=== PATIENT | female | born 1970 ===

== ENCOUNTER 2020-07-04 12:49 | Emergency (ER) | payer OTHER, SELFPAY ==
[2020-07-04 13:10] VITALS: BP 135/74; PULSE 84; RESP 16; TEMP 37.2; O2SAT 98; BMI 32.4
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
[2020-07-04 14:00] VITALS: BP 139/84; PULSE 77; RESP 16; O2SAT 100
[2020-07-04] MEDS: Ketorolac Tromethamine 60 MG/2 ML VIAL IM (16:14)
== END 2020-07-04 16:19 | disposition home or self-care (01) ==
PROVIDERS: Emergency Provider Emergency Medicine
DX: S06.0X0A Concussion without loss of consciousness, initial encounter (principal); R51.9 Headache, unspecified; V43.52XA Car driver injured in collision with other type car in traffic accident, initial encounter; Y93.9 Activity, unspecified; Y92.410 Unspecified street and highway as the place of occurrence of the external cause
CPT/HCPCS: 70450; 96372; 99284; J1885

== ENCOUNTER 2020-08-09 12:05 | Outpatient (REF) | payer OTHER, SELFPAY | END 2020-08-09 12:06 | disposition home or self-care (01) | LOC: HO.LAB 12:05 | PROVIDERS: Visit Provider Internal Medicine | DX: Z20.828 Contact with and (suspected) exposure to other viral communicable diseases (principal) | CPT/HCPCS: C9803; U0003 ==

== ENCOUNTER 2020-10-02 12:14 | Outpatient (REF) | payer OTHER, SELFPAY ==
--- NOTE | 2020-10-02 | MM_ITS ---
EXAMINATION: MM DIAGNOSTIC DIGITAL BREAST TOMOSYNTHESIS, BILATERAL CLINICAL INFORMATION: Due for yearly. Probable benign asymmetric fibroglandular tissue right axillary tail on MLO view for follow-up. The lifetime risk of breast cancer based on the Tyrer-Cuzick Model is 8%. COMPARISON: Mammography: 07/10/2019, 07/04/2019 (BI-RADS 0), 02/07/2018, 06/29/2016, 06/11/2015, 05/29/2014, 04/06/2013 (baseline). Ultrasound right breast 07/10/2019 and 02/12/2009. TECHNIQUE: Digital breast tomosynthesis is performed in both the craniocaudal and mediolateral oblique views along with computer-aided detection (CAD). Synthesized 2D images are generated from the tomosynthesis. FINDINGS: The breasts are heterogeneously dense, which may obscure small masses (ACR BI-RADS breast composition Category c). Parenchymal pattern is similar to prior studies. There is heterogeneous accessory breast tissue bilaterally posterior upper breasts similar to multiple prior exams dating back to baseline 2012. There is no developing density or interval mass or architectural abnormality. No abnormal calcifications. No lymphadenopathy. The skin contours are smooth. Results are provided to the patient at time of visit by the technologist. MM/MM tomosynthesis diagnostic BI IMPRESSION: No significant changes from prior exams. ASSESSMENT: BI-RADS 2: Benign RECOMMENDATION: Routine annual mammography screening. This patient's information was entered into a reminder system with a target due date for their next mammogram.
== END 2020-10-02 12:15 | disposition home or self-care (01) ==
LOC: HO.MAMMO 12:14
PROVIDERS: PCP Internal Medicine; Visit Provider Internal Medicine
DX: R92.8 Other abnormal and inconclusive findings on diagnostic imaging of breast (principal)
CPT/HCPCS: 77062; 77066

== ENCOUNTER 2020-10-02 14:40 | Outpatient (REF) | payer OTHER, SELFPAY | END 2020-10-02 14:41 | disposition home or self-care (01) | LOC: HO.LAB 14:40 | PROVIDERS: PCP Internal Medicine; Visit Provider Internal Medicine | DX: Z20.822 Contact with and (suspected) exposure to COVID-19 (principal) | CPT/HCPCS: 36415; C9803; U0003 ==

== ENCOUNTER 2020-11-21 13:15 | Outpatient (REF) | payer OTHER, SELFPAY | END 2020-11-21 13:16 | disposition home or self-care (01) | LOC: HO.LAB 13:15 | PROVIDERS: Visit Provider Internal Medicine | DX: Z20.822 Contact with and (suspected) exposure to COVID-19 (principal) | CPT/HCPCS: 36415; C9803; U0003; U0005 ==

== ENCOUNTER 2020-12-30 07:31 | Outpatient (REF) | payer OTHER, SELFPAY ==
--- NOTE | ~2020-12-30 | XR_ITS ---
EXAMINATION: BILATERAL SHOULDER X-RAY CLINICAL INFORMATION: Pain COMPARISON: Previous right shoulder x-ray June 2019 TECHNIQUE: 3 views of each shoulder FINDINGS: Right: Bone alignment is normal. No fracture or dislocation is seen. The joint spaces are normal. Soft tissues are normal. Left: Bone alignment is normal. No fracture or dislocation is seen. The joint spaces are normal. There is a small acromial osteophyte or spur. Soft tissues are normal. XR/XR shoulder RT min 2V IMPRESSION: Right shoulder: Unremarkable exam. Left shoulder: Small acromial osteophyte.
--- NOTE | ~2020-12-30 | XR_ITS ---
EXAMINATION: BILATERAL SHOULDER X-RAY CLINICAL INFORMATION: Pain COMPARISON: Previous right shoulder x-ray June 2019 TECHNIQUE: 3 views of each shoulder FINDINGS: Right: Bone alignment is normal. No fracture or dislocation is seen. The joint spaces are normal. Soft tissues are normal. Left: Bone alignment is normal. No fracture or dislocation is seen. The joint spaces are normal. There is a small acromial osteophyte or spur. Soft tissues are normal. XR/XR shoulder LT min 2V IMPRESSION: Right shoulder: Unremarkable exam. Left shoulder: Small acromial osteophyte.
== END 2020-12-30 07:32 | disposition home or self-care (01) ==
LOC: HO.HOSX 07:31
PROVIDERS: Visit Provider Physician Assistant
DX: M25.511 Pain in right shoulder (principal); M25.512 Pain in left shoulder; M75.41 Impingement syndrome of right shoulder; M75.42 Impingement syndrome of left shoulder
CPT/HCPCS: 20610; 73030; 99202; J1020

== ENCOUNTER 2021-01-24 08:26 | Outpatient (REF) | payer OTHER, SELFPAY ==
[2021-01-24 11:24] LABS: MANUAL DIFF FLAG NO
[2021-01-24 11:40] LABS: Basophils Percent Auto 0.5 % (0-2); Eosinophils Absolute Auto 0.4 X10*3/uL (0.0-0.4); Eosinophils Percent Auto 6.3 % (0-4); Hemoglobin 12.5 g/dl (12.0-16.0); Imm Gran Abs Auto 0.04 X10*3/uL (0.00-0.03); Imm Gran Pct Auto 0.7 % (0.0-0.4); Lymphocytes Absolute Auto 1.6 X10*3/uL (1.2-4.9); Lymphocytes Percent Auto 27.5 % (20-40); Mean Corpuscular HGB Conc 32.1 g/dl (31.0-35.0); Mean Corpuscular Hemoglobin 28.9 pg (27.0-33.0); Mean Corpuscular Volume 90.1 fL (80-98); Mean Platelet Volume 9.4 fL (9.4-12.3); Monocytes Absolute Auto 0.4 X10*3/uL (0.1-1.2); Monocytes Percent Auto 6.3 % (2-11); Neutrophils Absolute Auto 3.5 X10*3/uL (2.0-8.3); Neutrophils Percent Auto 58.7 % (45-73); Platelet Count 287 X10*3/uL (160-400); Red Blood Count 4.33 X10*6/uL (4.20-5.50); Red Cell Distribution Width 12.9 % (11.0-16.0); White Blood Count 5.9 X10*3/uL (4.8-10.8)
[2021-01-24 12:05] LABS: Alanine Aminotransferase 19 U/L (0-31); Alkaline Phosphatase 93 U/L (39-117); Anion Gap 11 (12-20); Aspartate Amino Transferase 17 U/L (5-31); Bilirubin Total 0.4 mg/dL (0.0-1.0); Blood Urea Nitrogen 17 mg/dL (9-16); Calcium 9.1 mg/dL (8.4-10.2); Carbon Dioxide 30 mmol/L (22-29); Chloride 106 mmol/L (96-108); Cholesterol 174 mg/dL; Estimated Glomerular Filt Rate > 60; Glucose Fasting 94 mg/dL (60-99); HDL Cholesterol 49 mg/dL; LDL Cholesterol Calculated 109 mg/dl; Potassium 4.1 mmol/L (3.3-5.1); Sodium 143 mmol/L (135-145); Total Protein 6.9 g/dL (6.5-8.0); Triglycerides 82 mg/dL
[2021-01-24 12:31] LABS: TSH reflex Free T4 0.54 uIU/mL (0.32-4.0)
== END 2021-01-24 08:27 | disposition home or self-care (01) ==
LOC: HO.HMGCLDS 08:26
PROVIDERS: PCP Internal Medicine; Visit Provider Internal Medicine
DX: Z00.01 Encounter for general adult medical examination with abnormal findings (principal); E66.9 Obesity, unspecified
CPT/HCPCS: 36415; 80053; 80061; 84443; 85025

== ENCOUNTER 2021-02-05 11:45 | Outpatient (REF) | payer OTHER, SELFPAY | END 2021-02-05 11:46 | disposition home or self-care (01) | LOC: HO.LNP 11:45 | PROVIDERS: Visit Provider Hospitalist | DX: R30.0 Dysuria (principal) | CPT/HCPCS: 87086; 87088; 87186 ==

== ENCOUNTER 2021-02-17 11:29 | Outpatient (REF) | payer OTHER, SELFPAY ==
[2021-02-17 14:10] LABS: Syphilis Screen Nonreactive (Nonreactive)
[2021-02-17 17:22] LABS: CT PCR NOT DETECTED (Not Detect.); NG PCR NOT DETECTED (Not Detect.)
[2021-02-18 04:02] LABS: HIV AB/AG Nonreactive (Nonreactive); HIV Num 1 0.11 S/CO (0.00-0.99)
[2021-02-18 04:05] LABS: HBsAGNum1 0.13 S/CO (0.00-0.99); Hepatitis B Surface Antigen Negative (Negative); ~HepC Num1 0.12 S/CO (0.00-0.79); ~Hepatitis C Antibody Nonreactive (Nonreactive)
[2021-02-18 09:44] LABS: BV Int Neg Control Negative (Negative); BV Int Pos Control Positive (Positive)
== END 2021-02-17 11:30 | disposition home or self-care (01) ==
LOC: HO.LAB 11:29
PROVIDERS: PCP Internal Medicine; Visit Provider Advanced Practice Midwife
DX: Z01.411 Encounter for gynecological examination (general) (routine) with abnormal findings (principal); Z01.84 Encounter for antibody response examination; Z11.3 Encounter for screening for infections with a predominantly sexual mode of transmission; Z11.4 Encounter for screening for human immunodeficiency virus [HIV]; N95.1 Menopausal and female climacteric states; Z20.2 Contact with and (suspected) exposure to infections with a predominantly sexual mode of transmission; F32.9 Major depressive disorder, single episode, unspecified; Z98.51 Tubal ligation status
CPT/HCPCS: 36415; 86780; 86803; 87340; 87389; 87480; 87491; 87510; 87591; 87660

== ENCOUNTER → 2021-05-23 12:39 | Outpatient (BNVA) | payer OTHER, SELFPAY | PROVIDERS: Visit Provider Physician Assistant | DX: M75.41 Impingement syndrome of right shoulder (principal); M75.42 Impingement syndrome of left shoulder | CPT/HCPCS: 20610; 99212; J1020 ==

== ENCOUNTER 2021-07-24 08:32 | Outpatient (REF) | payer OTHER, SELFPAY ==
[2021-07-24 08:57] LABS: COVID-19 Test Negative (Negative)
== END 2021-07-24 08:33 | disposition home or self-care (01) ==
LOC: HO.LAB 08:32
PROVIDERS: PCP Internal Medicine; Visit Provider Internal Medicine
DX: Z20.822 Contact with and (suspected) exposure to COVID-19 (principal)
CPT/HCPCS: 36415; 87635; C9803

== ENCOUNTER 2021-08-28 09:32 | Outpatient (REF) | payer OTHER, SELFPAY ==
[2021-08-28 11:37] LABS: MANUAL DIFF FLAG NO
[2021-08-28 11:40] LABS: Appearance Urine CLEAR; Color Urine YELLOW; Glucose Urine UA NEG (NEG); Leukocyte Esterase Urine TRACE (NEG); Nitrite Urine NEG (NEG); UACC Culture Trigger YES; Urine Blood NEG (NEG); Urine Ketones NEG (NEG); Urine Protein NEG (NEG-TRACE)
[2021-08-28 11:49] LABS: Eosinophils Absolute Auto 0.2 X10*3/uL (0.0-0.4); Hematocrit 40.1 % (37.0-47.0); Hemoglobin 13.1 g/dl (12.0-16.0); Imm Gran Abs Auto 0.02 X10*3/uL (0.00-0.03); Imm Gran Pct Auto 0.4 % (0.0-0.4); Lymphocytes Absolute Auto 1.5 X10*3/uL (1.2-4.9); Mean Corpuscular HGB Conc 32.7 g/dl (31.0-35.0); Mean Corpuscular Volume 88.9 fL (80.0-98.0); Mean Platelet Volume 9.4 fL (9.4-12.3); Monocytes Absolute Auto 0.4 X10*3/uL (0.1-1.2); Monocytes Percent Auto 7.2 % (2-11); Neutrophils Absolute Auto 3.4 x10*3/uL (2.0-8.3); Neutrophils Percent Auto 61.4 % (45-73); Platelet Count 241 X10*3/uL (160-400); Red Blood Count 4.51 X10*6/uL (4.20-5.50); Red Cell Distribution Width 12.9 % (11.0-16.0); White Blood Count 5.6 X10*3/uL (4.8-10.8)
[2021-08-28 11:55] LABS: Bacteria Urine TRACE /LPF; RBC Urine 0 /HPF (0); Squamous Epithelial Cell Urine 2+ /LPF; WBC Urine 0-2 /HPF (0-4)
[2021-08-28 12:07] LABS: Alanine Aminotransferase 29 U/L (0-31); Albumin Level 4.3 g/dL (3.5-5.0); Alkaline Phosphatase 113 U/L (39-117); Anion Gap 12 (12-20); Aspartate Amino Transferase 27 U/L (5-31); Bilirubin Total 0.6 mg/dL (0.0-1.0); Blood Urea Nitrogen 17 mg/dL (9-16); Calcium 9.9 mg/dL (8.4-10.2); Carbon Dioxide 28 mmol/L (22-29); Chloride 108 mmol/L (96-108); Cholesterol 195 mg/dL; Estimated Glomerular Filt Rate > 60; Glucose Fasting 79 mg/dL (60-99); HDL Cholesterol 45 mg/dL; LDL Cholesterol Calculated 132 mg/dl; Potassium 4.2 mmol/L (3.3-5.1); Sodium 144 mmol/L (135-145); Total Protein 7.3 g/dL (6.5-8.0); Triglycerides 90 mg/dL
[2021-08-28 12:30] LABS: TSH reflex Free T4 0.58 uIU/mL (0.32-4.0)
== END 2021-08-28 09:33 | disposition home or self-care (01) ==
LOC: HO.HMGCLDS 09:32
PROVIDERS: PCP Internal Medicine; Visit Provider Internal Medicine
DX: F33.2 Major depressive disorder, recurrent severe without psychotic features (principal); F41.0 Panic disorder [episodic paroxysmal anxiety]; F41.1 Generalized anxiety disorder; M79.89 Other specified soft tissue disorders; R23.2 Flushing
CPT/HCPCS: 36415; 80053; 80061; 81001; 84443; 85025; 87086

== ENCOUNTER 2021-09-18 11:50 | Outpatient (REF) | payer OTHER, SELFPAY | END 2021-09-18 11:51 | disposition home or self-care (01) | LOC: HO.LAB 11:50 | PROVIDERS: Visit Provider Internal Medicine | DX: Z13.89 Encounter for screening for other disorder (principal) ==

== ENCOUNTER → 2021-11-05 09:58 | Outpatient (BNVA) | payer OTHER, SELFPAY | PROVIDERS: PCP Internal Medicine; Visit Provider Physician Assistant | DX: M75.41 Impingement syndrome of right shoulder (principal); M75.42 Impingement syndrome of left shoulder | CPT/HCPCS: 20610; 99212; J1040 ==

== ENCOUNTER → 2021-11-18 15:23 | Outpatient (BNVA) | payer OTHER, SELFPAY | PROVIDERS: PCP Internal Medicine; Visit Provider Obstetrics & Gynecology | DX: R23.2 Flushing (principal) | CPT/HCPCS: 99212 ==

== ENCOUNTER 2021-12-02 14:17 | Outpatient (REF) | payer OTHER, SELFPAY ==
--- NOTE | ~2021-12-02 | MM_ITS ---
EXAMINATION: MM SCREENING DIGITAL BREAST TOMOSYNTHESIS, BILATERAL CLINICAL INFORMATION: Screening. Asymptomatic. The lifetime risk of breast cancer based on the Tyrer-Cuzick Model is 7%. COMPARISON: Mammography: 10/02/2020, 07/10/2019, 07/04/2019, 02/07/2018 TECHNIQUE: Digital breast tomosynthesis is performed in both the craniocaudal and mediolateral oblique views along with computer-aided detection (CAD). Synthesized 2D images are generated from the tomosynthesis. FINDINGS: There are scattered areas of fibroglandular density (ACR BI-RADS breast composition Category b). Breast composition borders on heterogeneously dense. There are no significant masses, abnormal calcifications, or other abnormalities. There is no developing density or architectural abnormality or significant changes. Skin contours are smooth. MM/MM tomosynthesis screening BI IMPRESSION: No mammographic evidence of malignancy. ASSESSMENT: BI-RADS 1: Negative RECOMMENDATION: Routine annual mammography screening. This patient's information was entered into a reminder system with a target due date for their next mammogram.
== END 2021-12-02 14:18 | disposition home or self-care (01) ==
LOC: HO.MAMMO 14:17
PROVIDERS: Visit Provider Internal Medicine
DX: Z12.31 Encounter for screening mammogram for malignant neoplasm of breast (principal)
CPT/HCPCS: 77063; 77067

== ENCOUNTER 2021-12-03 09:31 | Outpatient (REF) | payer OTHER, SELFPAY ==
--- NOTE | ~2021-12-03 | MR_ITS ---
EXAMINATION: MR SHOULDER WITHOUT CONTRAST, LEFT CLINICAL INFORMATION: Left shoulder pain. COMPARISON: Radiographs 12/30/2020. TECHNIQUE: MRI of the shoulder without contrast is performed on a 1.5 Hope high-field scanner. FINDINGS: ROTATOR CUFF: Irregular full-thickness tear at the anterior aspect of the supraspinatus tendon measuring approximately 10 mm in AP dimension with maximal gap of 4 mm. There is a 3 mm interstitial insertional partial tear of the infraspinatus tendon insertion. Mild subscapularis tendinopathy. No muscle atrophy or fatty infiltration. BICEPS: Normal. CORACOACROMIAL ARCH: The undersurface of the acromion is curved with mild subacromial spurring. Mild acromioclavicular osteoarthritis. LABRUM/CAPSULE: No definite labral tear. GLENOHUMERAL JOINT/MARROW: Trace glenohumeral joint effusion. Degenerative spurring and cyst formation at the anterior aspect of the greater tuberosity. ADDITIONAL FINDINGS: None. MR/MR shoulder LT wo con IMPRESSION: Irregular full-thickness tearing of the supraspinatus tendon insertion anteriorly measuring approximately 10 x 4 mm. Small undersurface partial tear of the infraspinatus tendon insertion. Mild subscapularis tendinosis. Mild subacromial spurring and acromioclavicular osteoarthritis.
== END 2021-12-03 09:32 | disposition home or self-care (01) ==
LOC: HO.MRI 09:31
PROVIDERS: Visit Provider Physician Assistant
DX: S43.002D Unspecified subluxation of left shoulder joint, subsequent encounter (principal)
CPT/HCPCS: 73221

== ENCOUNTER → 2021-12-18 13:08 | Outpatient (BNVA) | payer OTHER, SELFPAY | PROVIDERS: PCP Internal Medicine; Visit Provider Orthopaedic Surgery | DX: M75.101 Unspecified rotator cuff tear or rupture of right shoulder, not specified as traumatic (principal) | CPT/HCPCS: 99212 ==

== ENCOUNTER 2022-01-28 09:14 | Outpatient (REF) | payer OTHER, SELFPAY ==
[2022-01-28 11:15] LABS: MANUAL DIFF FLAG NO
[2022-01-28 11:22] LABS: Eosinophils Absolute Auto 0.2 X10*3/uL (0.0-0.4); Eosinophils Percent Auto 3.1 % (0-4); Hemoglobin 13.5 g/dl (12.0-16.0); Imm Gran Abs Auto 0.02 X10*3/uL (0.00-0.03); Imm Gran Pct Auto 0.3 % (0.0-0.4); Lymphocytes Percent Auto 25.1 % (20-40); Mean Corpuscular HGB Conc 32.1 g/dl (31.0-35.0); Mean Corpuscular Hemoglobin 28.7 pg (27.0-33.0); Mean Corpuscular Volume 89.4 fL (80.0-98.0); Mean Platelet Volume 9.5 fL (9.4-12.3); Monocytes Absolute Auto 0.5 X10*3/uL (0.1-1.2); Monocytes Percent Auto 6.3 % (2-11); Neutrophils Absolute Auto 5.1 x10*3/uL (2.0-8.3); Neutrophils Percent Auto 65.2 % (45-73); Platelet Count 266 X10*3/uL (160-400); Red Cell Distribution Width 13.2 % (11.0-16.0); White Blood Count 7.8 X10*3/uL (4.8-10.8)
[2022-01-28 11:52] LABS: Alanine Aminotransferase 28 U/L (0-31); Albumin Level 4.2 g/dL (3.5-5.0); Alkaline Phosphatase 117 U/L (39-117); Anion Gap 12 (12-20); Aspartate Amino Transferase 24 U/L (5-31); Bilirubin Total 0.5 mg/dL (0.0-1.0); Blood Urea Nitrogen 10 mg/dL (9-16); Calcium 9.9 mg/dL (8.4-10.2); Carbon Dioxide 31 mmol/L (22-29); Chloride 104 mmol/L (96-108); Cholesterol 194 mg/dL; Estimated Glomerular Filt Rate > 60; Glucose Fasting 106 mg/dL (60-99); HDL Cholesterol 41 mg/dL; LDL Cholesterol Calculated 127 mg/dl; Potassium 4.3 mmol/L (3.3-5.1); Sodium 143 mmol/L (135-145); Total Protein 7.4 g/dL (6.5-8.0); Triglycerides 133 mg/dL
[2022-01-28 12:00] LABS: TSH reflex Free T4 0.48 uIU/mL (0.32-4.0)
[2022-02-05 01:52] LABS: Factor V Leiden NEGATIVE
== END 2022-01-28 09:15 | disposition home or self-care (01) ==
LOC: HO.HMGCLDS 09:14
PROVIDERS: PCP Internal Medicine; Visit Provider Internal Medicine
DX: Z00.01 Encounter for general adult medical examination with abnormal findings (principal); F33.2 Major depressive disorder, recurrent severe without psychotic features; F41.9 Anxiety disorder, unspecified; E66.9 Obesity, unspecified
CPT/HCPCS: 36415; 80053; 80061; 81241; 84443; 85025

== ENCOUNTER 2022-02-19 12:11 | Outpatient (REF) | payer OTHER, SELFPAY ==
[2022-02-20 01:20] LABS: CT PCR NOT DETECTED (Not Detect.); NG PCR NOT DETECTED (Not Detect.)
[2022-02-20 08:33] LABS: BV Int Neg Control Negative (Negative); BV Int Pos Control Positive (Positive)
== END 2022-02-19 12:12 | disposition home or self-care (01) ==
LOC: HO.LAB 12:11
PROVIDERS: Visit Provider Advanced Practice Midwife
DX: Z11.3 Encounter for screening for infections with a predominantly sexual mode of transmission (principal); Z11.8 Encounter for screening for other infectious and parasitic diseases
CPT/HCPCS: 87480; 87491; 87510; 87591; 87660

== ENCOUNTER → 2022-02-26 12:38 | Outpatient (BNVA) | payer OTHER, SELFPAY | PROVIDERS: PCP Internal Medicine; Visit Provider Physician Assistant | DX: M75.102 Unspecified rotator cuff tear or rupture of left shoulder, not specified as traumatic (principal) | CPT/HCPCS: 99212 ==

== ENCOUNTER 2022-03-19 11:28 | Outpatient (REF) | payer OTHER, SELFPAY ==
--- NOTE | ~2022-03-19 | XR_ITS ---
EXAMINATION: XR FOOT, RIGHT CLINICAL INFORMATION: Right foot pain. COMPARISON: None TECHNIQUE: AP, lateral, and oblique views of the right foot. FINDINGS: No fracture or malalignment. Bone mineralization is normal. Small enthesopathic spurs are present at the Achilles tendon insertion and plantar fascial origin on the calcaneus. Tiny marginal osteophytes are present at the first and third MTP joints. More moderate osteoarthritis is present at the third toe DIP joint. Mild osteoarthritis is present at the other interphalangeal joints. No erosions are identified. XR/XR foot RT 2V IMPRESSION: No acute osseous findings. Mild to moderate multifocal osteoarthritis of the interphalangeal joints, most notably at the third toe DIP joint. More mild osteoarthritis at the first and third MTP joints. Small calcaneal enthesopathic spurs at the Achilles insertion and plantar fascial origin.
== END 2022-03-19 11:29 | disposition home or self-care (01) ==
LOC: HO.HMGCX 11:28
PROVIDERS: Visit Provider Internal Medicine
DX: M79.671 Pain in right foot (principal)
CPT/HCPCS: 73620

== ENCOUNTER 2022-05-27 06:47 | Day surgery (SDC) | payer OTHER, SELFPAY ==
[2022-05-22 12:23] VITALS: BMI 36.4
[2022-05-27] VITALS (10 sets, daily range): BP systolic 112–127; BP diastolic 57–71; PULSE 63–77; RESP 15–18; TEMP 36.1–36.5; O2SAT 94–99
[2022-05-27] MEDS: Lactated Ringers 1,000 ML 50 ML IVCONT (07:27)
--- NOTE | 2022-05-27 08:39 | MHC.SHP ---
Pre-Procedural Eval Section A Date of Service: 05/27/22 The patient is an INPATIENT: No Changes since office visit: Yes Patient answered all questions; No Cold of Flu in the past 2 weeks, No New Medical Problems and No Changes in Medication The History & Physical has been completed within 30 days and I have reviewed it.: Yes Section B Chief Complaint: rotator cuff tear repair Allergies: Allergies Allergy/AdvReac Type Severity Reaction Status Date / Time mannitol [From ZOMETA] Allergy Severe DIFFICULTY Verified 05/27/22 07:07 SWALLOWING water for injection,sterile Allergy Severe DIFFICULTY Verified 05/27/22 07:07 [From ZOMETA] SWALLOWING zoledronic acid [From ZOMETA] Allergy Severe DIFFICULTY Verified 05/27/22 07:07 SWALLOWING latex [Latex] Allergy Intermediate RASH Verified 05/27/22 07:07 hydroxyzine [From VISTARIL] Allergy Mild SWELLING Verified 05/27/22 07:07 Plan I have reviewed the history and physical and performed a pertinent physical examination on my patient. No changes have occurred unless specified.
--- NOTE | 2022-05-27 08:47 | P.CONAN_ITS ---
HPI - Anesthesia Eval Consult details Narrative: 52 F for left shoulder scope PMFSH Active Problems Active Problems: All Active Problems (Updated 05/07/22 @ 12:39 by Celeste Henson [facility]) Heel spur (Acute) Osteoarthritis of foot, right (Acute) Left rotator cuff tear (Acute) Pain of right heel (Acute) Anxiety (Acute) Right rotator cuff tear (Acute) Stress incontinence (Acute) Hot flashes (Acute) Major depressive disorder, recurrent, severe w/o psychotic behavior (Acute) Generalized anxiety disorder with panic attacks (Acute) Swelling of lower extremity (Acute) Hx of tubal ligation (Acute) Depression (Acute) Kristin-menopause (Acute) Potential exposure to STD (Acute) Well woman exam with routine gynecological exam (Acute) Dysuria (Acute) Routine gynecological examination (Acute) Encounter for general adult medical examination with abnormal findings (Acute) Obesity (BMI 30.0-34.9) (Acute) Impingement syndrome of both shoulders (Acute) Facial rash (Acute) Shoulder pain, bilateral (Acute) Past Medical History Medical History Anxiety Depression Functional capacity: independent ambulation Family History Family history of problems with anesthesia: No Surgical History Surgical History History of tubal ligation Hx of section Hx of right breast biopsy History of Problems with Anesthesia: No Social History Social History Housing: Apartment Are you a primary hospice care consultant to a significant other at home: No Do you presently have visiting nurse or other home services: No Alcohol intake: never Patient Tobacco Use Status: Former Tobacco user Quit Date: 1996 Tobacco use type: Cigarette Years Smoked: 8 years e-Cigarette/Vaping Use: Never Used service: No Current occupational status: disabled 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 Cognitive needs: No Hearing needs: No Vision needs: No Meds Allergies Allergy/AdvReac Type Severity Reaction Status Date / Time mannitol [From ZOMETA] Allergy Severe DIFFICULTY Verified 05/27/22 07:07 SWALLOWING water for injection,sterile Allergy Severe DIFFICULTY Verified 05/27/22 07:07 [From ZOMETA] SWALLOWING zoledronic acid [From ZOMETA] Allergy Severe DIFFICULTY Verified 05/27/22 07:07 SWALLOWING latex [Latex] Allergy Intermediate RASH Verified 05/27/22 07:07 hydroxyzine [From VISTARIL] Allergy Mild SWELLING Verified 05/27/22 07:07 Active Medications: Current Medications Acetaminophen (Acetaminophen 325 Mg Tablet) 650 mg PO ONCE PRN PRN Reason: Pain, Mild (Pain Scale 1-3) Fentanyl (Fentanyl Citrate/Pf 100 Mcg/2 Ml Vial) 25 mcg IVPUSH Q5M PRN; Protocol PRN Reason: Pain, Moderate (Pain Scale 4-6 Hydromorphone HCl (Hydromorphone Hcl 0.5 Mg/0.5 Ml Syringe) 0.25 mg IVPUSH Q5M PRN; Protocol PRN Reason: Pain, Severe (Pain Scale 7-10) Lactated Ringer's (Lr) 1,000 mls @ 50 mls/hr IVCONT .Q20H CARLA Last Admin: 05/27/22 07:27 Dose: 50 mls/hr Promethazine HCl 6.25 mg/ (Sodium Chloride) 50.25 mls @ 201 mls/hr IV ONCE PRN PRN Reason: Nausea and Vomiting Oxycodone HCl (Oxycodone Hcl Immed Release 5 Mg Tablet) 5 mg PO ONCE PRN PRN Reason: Pain, Severe (Pain Scale 7-10) Home Medications Medication Instructions Recorded Confirmed Last Taken Type clonazepam 1 mg tablet 1 mg PO TID PRN Anxiety 12/11/20 05/22/22 05/27/22 History gabapentin 400 mg capsule 400 mg PO TID 12/11/20 05/22/22 05/27/22 History simethicone 125 mg chewable tablet 0 mg PO 12/11/20 03/20/22 Unknown History lamotrigine 25 mg tablet 0 mg PO 03/19/22 03/20/22 05/27/22 History venlafaxine 37.5 mg 37.5 mg PO DAILY 05/07/22 05/22/22 05/27/22 History capsule,extended release 24 hr Exam Exam Date and Time: May 27, 2022 0847 Height,Weight and Vital Signs: Height 5 ft 3.5 in Weight 94.801 kg Last Vital Signs Temp 97.7 F 05/27/22 07:15 Pulse 65 05/27/22 07:15 Resp 18 05/27/22 07:15 BP 124/71 05/27/22 07:15 Pulse Ox 96 05/27/22 07:15 O2 Del Method 05/27/22 07:15 Airway Mallampati Class: III TM Dist: >3cm Neck ROM: Full Loose/Missing/Broken Teeth: Yes (Fillings and caps ) Heart: S1,S2 Lungs: b/l breath sounds Assessment and Plan Assessment Anesthesia Assessment: Anesthesia Plan Discussed and Chart Reviewed Final Anesthetic Review Family History of Problems with Anesthesia: No History of Problems with Anesthesia: No NPO: Yes ASA Class: II Final Preanesthetic Review: Meds/Allgs Chart Reviewed, Consent Obtained/Reviewed and Anes Risks/Benef Reviewed Patient Risk: Intermediate Procedure Risk: Intermediate Anesthetic Plan Anesthetic Plan: GA Disposition: Standard PACU
--- NOTE | 2022-05-27 11:17 | P.BOP_ITS ---
Brief Operative Note Date of Service: 05/27/22 Pre-op diagnosis: Left RTC tear Post-op diagnosis: same Procedure: Left RTC repair with SAD Implants: [employer] Helacoil x 2 Surgeon: Oh Montiel MD Anesthesia: GETA and regional Was an Extras Casting Director used for this Procedure?: Yes Extras Casting Director: Radha Anaya Estimated blood loss (mL): 20 IV fluids (mL): 1,000 Pathology: none sent Condition: stable Disposition: PACU
--- NOTE | 2022-05-27 11:22 | P.OP_ITS ---
Operative Note Operative Note Date of Service: 05/27/22 Narrative: Date of Service: 05/27/22 Pre-op diagnosis: Left RTC tear Post-op diagnosis: same Procedure: Left RTC repair with SAD Implants: [employer] Helacoil x 2 Surgeon: Oh Montiel MD Anesthesia: GETA and regional Was an Bicycle Ii Assembler used for this Procedure?: Yes Bicycle Ii Assembler: Radha Anaya Estimated blood loss (mL): 20 IV fluids (mL): 1,000 Pathology: none sent Condition: stable Disposition: PACU Procedure in detail: Patient was brought to the operating room and placed the the beach chair position. All bony prominences were well padded and the limb was prepped and draped in standard sterile fashion. A time out was called to identify proper site, proper procedure and proper surgeon. IV antibiotics per weight were administered. I began by making a posterolateral stab incision with a 15 blade. A blunt trochar was placed into the glenohumeral joint and I insufflated the joint with saline and a 30 degree arthroscope was placed. I established an outside- in anterior portal just distal to the biceps tendon. I then began my inspection of the glenohumeral joint. There was an intact biceps with degenerative fraying of the labrum superiorly. There were no cartilage changed. There was an intact subscapularis with minimal fraying laterally. There was a full thickness supraspinatus tear without retraction. I debrided the labral fraying and entered the sub acromial space.. A direct lateral portal was then established and I performed a bursectomy. The cuff was then examined. There was a full thickness tear of the supraspinatus without retraction. The tear was mobile and crescentic. I established a second anterolateral portal for suture shuttling. I then placed two medial row double loaded anchors and then brought the suture tape through the medial cuff. I then debrided the bare area down to bleeding bone and, using a cross bridge configuration, brought three limbs to each of two lateral 5.0 anchors. This re- approximated the cuff anatomy near anatomically. I then performed a 5 mm subacromial decompression. Once I was satisfied with the repair final images were captured and I removed all instrumentation. Portals were closed with nylon. Patient was placed in an abduction sling, extubated and brought to the recovery room in stable condition. There were no known complications.
== END 2022-05-27 13:56 | disposition home or self-care (01) ==
PROVIDERS: PCP Internal Medicine; Visit Provider Orthopaedic Surgery
PROC: (CPT 29827; principal; 2022-05-27 08:30)
DX: M75.102 Unspecified rotator cuff tear or rupture of left shoulder, not specified as traumatic (principal); F32.A Depression, unspecified; F41.9 Anxiety disorder, unspecified; Z79.899 Other long term (current) drug therapy; Z88.8 Allergy status to other drugs, medicaments and biological substances; Z91.040 Latex allergy status; Z98.51 Tubal ligation status; Z87.891 Personal history of nicotine dependence
CPT/HCPCS: 29827; 29826; C1713; J0171; J0690; J1100; J1885; J2250; J2405; J2795; J3010

== ENCOUNTER 2022-06-06 12:26 | Emergency (ER) | payer OTHER, SELFPAY ==
--- NOTE | ~2022-06-06 | XR_ITS ---
EXAMINATION: XR SHOULDER, LEFT CLINICAL INFORMATION: Left shoulder pain. COMPARISON: 12/30/2020 left shoulder radiographs. TECHNIQUE: Three views of the left shoulder. FINDINGS: There is no acute fracture or dislocation. The joint spaces are unremarkable. 2 bone anchors overlie the left humeral head. Mild left acromioclavicular degenerative joint changes. The visualized left ribs are intact with the soft tissues are unremarkable. XR/XR shoulder LT min 2V IMPRESSION: No acute abnormality.
[2022-06-06 12:32] VITALS: BP 138/93; PULSE 92; RESP 18; TEMP 36.8; O2SAT 98; BMI 35.4
--- OUTSIDE RECORDS SUMMARY | 2022-06-06 14:40 | XMS_ITS | Continuity of Care Document ---
:1970 Author Organization [facility] Address [address] [place] [address]- Care Team Providers Name Role Phone Terrie Francis MD Primary Care Physician [place] [facility] [place] - 07/04/[address] [address]- [facility] Allergies, Adverse Reactions, Alerts Substance Reaction Severity Status Latex Active Medications Effexor XR 37.5 mg oral capsule, extended release 1 capsule = 37.5 mg, By Mouth, Daily, 0 Refills, Maintenance, 06/19/14 10:48:43 Start Date: 06/19/14 Status: OrderedKlonopin 2 mg oral tablet 1 tablet = 2 mg, By Mouth, 3 times a day, 0 Refills, Maintenance, 06/19/14 10:48:37 Start Date: 06/19/14 Status: Orderedoxycodone 5 mg oral tablet 1 tablet = 5 mg, By Mouth, Every 6 hours, 0 Refills, Maintenance, 06/19/14 10:49:12 Start Date: 06/19/14 Status: Orderedtrazodone 150 mg oral tablet 1 tablet = 150 mg, By Mouth, Daily at bedtime, # 15 tablet, 0 Refills Start Date: 06/05/09 Stop Date: 07/04/09 Status: OrderedTrileptal 300 mg oral tablet 1 tablet = 300 mg, By Mouth, 2 times a day, 0 Refills, Maintenance, 06/19/14 10:48:55 Start Date: 06/19/14 Status: Ordered
--- NOTE | 2022-06-06 15:18 | ED_ITS ---
HPI - Extremity Problem General Chief complaint: Extremity Problem Stated complaint: l arm shoulder pain Time Seen by Provider: 06/06/22 14:31 History of Present Illness HPI Narrative: Patient complains of left shoulder pain after putting weight on the shoulder when she leaned against something She had a rotator cuff surgery done 2 weeks ago and it was improving and then when she got up for bed she was not using or sling and for got about her surgery and pushed herself up on the shoulder and felt some cracking and a return of pain in the left shoulder area, she did not fall, she has no numbness weakness or tingling no radiation of pain no redness no swelling Related Data Home Medications Medication Instructions Recorded Confirmed clonazepam 1 mg tablet 1 mg PO TID PRN Anxiety 12/11/20 05/22/22 gabapentin 400 mg capsule 400 mg PO TID 12/11/20 05/22/22 simethicone 125 mg chewable tablet 0 mg PO 12/11/20 03/20/22 lamotrigine 25 mg tablet 0 mg PO 03/19/22 03/20/22 venlafaxine 37.5 mg 37.5 mg PO DAILY 05/07/22 05/22/22 capsule,extended release 24 hr Previous Rx's Medication Instructions Recorded solifenacin 10 mg tablet (Vesicare) 10 mg PO DAILY 90 days #90 tabs 06/01/22 acetaminophen 500 mg tablet 1,000 mg PO QID PRN pain #30 tabs 06/06/22 ibuprofen 600 mg tablet 600 mg PO Q6H PRN pain #20 tabs 06/06/22 oxycodone 5 mg tablet 5 mg PO Q6H PRN pain #14 tabs 06/06/22 oxycodone-acetaminophen 5 mg-325 1 tab PO Q6H PRN pain (scale score 06/09/22 mg tablet (Percocet) 4-6) 7 days #28 tabs Allergies Allergy/AdvReac Type Severity Reaction Status Date / Time mannitol [From ZOMETA] Allergy Severe DIFFICULTY Verified 06/01/22 09:32 SWALLOWING water for injection,sterile Allergy Severe DIFFICULTY Verified 06/01/22 09:32 [From ZOMETA] SWALLOWING zoledronic acid [From ZOMETA] Allergy Severe DIFFICULTY Verified 06/01/22 09:32 SWALLOWING latex [Latex] Allergy Intermediate RASH Verified 06/01/22 09:32 hydroxyzine [From VISTARIL] Allergy Mild SWELLING Verified 06/01/22 09:32 Review of Systems Review of Systems: Positive for left shoulder pain Negatives are no fever no chills no dizziness no weakness no fainting no feeling faint no headache no neck pain no chest pain no radiating pain no difficulty victor manuel athing no abdominal pain no other extremity pains no numbness no weakness no tingling no skin rash no redness Yes all other systems are reviewed and are negative PMFSH Past Medical History Source: nursing notes reviewed Medical History Anxiety Depression Surgical History History of tubal ligation Hx of section Hx of right breast biopsy Social History Social History Housing: Apartment Are you a primary hearing care professional to a significant other at home: No Do you presently have visiting nurse or other home services: No Alcohol intake: never Patient Tobacco Use Status: Former Tobacco user Quit Date: 1996 Tobacco use type: Cigarette Years Smoked: 8 years e-Cigarette/Vaping Use: Never Used service: No Current occupational status: disabled 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 Cognitive needs: No Hearing needs: No Vision needs: No Physical Exam Vital Signs: Vital Signs: Last Vital Signs Temp 98.2 F 06/06/22 12:32 Pulse 92 06/06/22 12:32 Resp 18 06/06/22 12:32 BP 138/93 H 06/06/22 12:32 Pulse Ox 98 06/06/22 12:32 O2 Del Method 06/06/22 12:32 BMI result Body Mass Index 35.4 General appearance no acute distress Head is normocephalic atraumatic Neck is supple nontender Chest clear to auscultation bilateral no chest wall tenderness The left shoulder has surgical scars that are healing well, there is no redness no swelling no discharge no dehiscence of wound, range of should motion is limited by pain but there is no swelling, no signs of skin infection or joint infection, sensation and motor are intact distal, skin is intact Other extremities normal Skin no rashes Neuro no focal motor sensory deficits Course Course Course Narrative: X-ray of the left shoulder did not show any evidence of osteomyelitis or any other acute findings and patient was discharged to follow with orthopedist Discharge Plan Discharge Clinical Impression: Left shoulder pain Patient Disposition: Home, Self-Care Additional Instructions: The x-ray did not show any new bony injury Follow closely with Orthopedics Return any time should pain be increased in out of control, redness and swelling of the shoulder fever any worse condition or any concerns Prescriptions: New oxycodone 5 mg tablet 5 mg PO Q6H PRN (Reason: pain) Qty: 14 0RF Rx Instructions: Partial Fill upon patient request. acetaminophen 500 mg tablet 1,000 mg PO QID PRN (Reason: pain) Qty: 30 0RF ibuprofen 600 mg tablet 600 mg PO Q6H PRN (Reason: pain) Qty: 20 0RF No Action solifenacin [Vesicare] 10 mg tablet 10 mg PO DAILY 90 Days Qty: 90 1RF oxycodone-acetaminophen [Percocet] 5-325 mg tablet 1 tab PO Q6H PRN (Reason: pain (scale score 4-6)) 7 Days Qty: 28 0RF Rx Instructions: Partial Fill upon patient request. clonazepam 1 mg tablet 1 mg PO TID PRN (Reason: Anxiety) simethicone 125 mg tablet,chewable 0 mg PO gabapentin 400 mg capsule 400 mg PO TID lamotrigine 25 mg tablet 0 mg PO venlafaxine 37.5 mg capsule,extended release 24hr 37.5 mg PO DAILY Referrals: Oh Montiel MD [Physician] - (Postsurgical pain) Interventions: ED Discharge Assessment Last Done: 06/06/22 17:35 Discharge Date/Time: 06/06/22 17:36
== END 2022-06-06 17:36 | disposition home or self-care (01) ==
PROVIDERS: Emergency Provider Emergency Medicine; PCP Internal Medicine
DX: M25.512 Pain in left shoulder (principal)
CPT/HCPCS: 73030; 99282; 99283

== ENCOUNTER 2022-06-26 12:48 | Outpatient (RCR) | payer OTHER, SELFPAY ==
--- NOTE | 2022-06-26 15:06 | MHC.PT.EP ---
[facility] [place] [facility] [place] [facility] [place] [facility] [address] Kiley Card [address] [phone] F: [phone] F: [phone] F: [phone] F: [phone] Physical Therapy Plan of Care Date of Evaluation: Date of Surgery: 05/27/22 Diagnosis: s/p L rotator cuff repair (full thickness suprapinatus tear and subacromial decompression) Assessment: Patient is 52 y.o female who presents to PT s/p L RTC repair (supraspinatus with subacromial decompression). She is currently 4 weeks post op, has not been compliant with MD restrictions and has not been consistent with sling use, actively moving shoulder and lifting light objects. A great deal of this session is spent with patient education about tissue healing after surgery and reinforce sling use until 6 weeks, no active use of arm, no lifting anything with L arm to ensure that she will not re-tear her tendon. She had possible injury to surgical area 2 weeks post of that she was seen at the ER, unclear if it effected soft tissue. I gave her basic exercises for AAROM, pendulums, scapular retractions, am having her be more cautious instead of overdoing her mobility at this point in her rehab. She requires progressive, monitored PT following protocol to restore her functional mobility and use of L UE. Frequency and Duration: The patient will be seen 2x/week for 8 week Short Term Goals: 4 weeks Patient presents with increased L shoulder flexion 140 degrees to reach up to watch her hair. Patient presents with compliance with home exercises/PT instructions per protocol to allow for tissue healing. Retirement Goals: 8 weeks Patient presents with increased L shoulder scaption 175 degrees to reach to high cabinets. Patient presents with increased L shoulder flexion 4+/5 to be able to use arm for light housework. Treatment Plan: Modalities to reduce pain, spasms and effusion. Manual therapy to restore motion and function. Therapeutic exercise to improve strength and flexibility. Neuromuscular re-education for posture and balance. Therapeutic activities to return to functional activities of daily living. Electronically signed by: Lin Kelly, PT, DPT Please sign and return to therapist. Thank you for your referral.
== END 2022-11-02 11:03 | disposition home or self-care (01) ==
LOC: HO.PT 12:48
PROVIDERS: PCP Internal Medicine; Visit Provider Physician Assistant
DX: Z98.890 Other specified postprocedural states (principal)
CPT/HCPCS: 97110; 97140

== ENCOUNTER 2022-07-07 12:51 | Outpatient (REF) | payer OTHER, SELFPAY ==
[2022-07-07 14:33] LABS: Anion Gap 14 (12-20); Blood Urea Nitrogen 11 mg/dL (9-16); Calcium 9.7 mg/dL (8.4-10.2); Carbon Dioxide 29 mmol/L (22-29); Chloride 107 mmol/L (96-108); Estimated Glomerular Filt Rate > 60; Glucose Random 110 mg/dL (60-115); Potassium 3.8 mmol/L (3.3-5.1); Sodium 146 mmol/L (135-145)
[2022-07-08 07:49] LABS: HBc Num1 0.07 S/CO (0.00-0.79); HBsAGNum1 0.21 S/CO (0.00-0.99); HIV AB/AG Nonreactive (Nonreactive); HIV Num 1 0.08 S/CO (0.00-0.99); Hepatitis B Core Antibody Nonreactive (Nonreactive); Hepatitis B Surface Antigen Negative (Negative); ~HepC Num1 0.14 S/CO (0.00-0.79); ~Hepatitis A Antibody IgM Nonreactive (Nonreactive); ~Hepatitis B Surface Antibody REACTIVE (Nonreactive); ~Hepatitis C Antibody Nonreactive (Nonreactive)
[2022-07-08 07:56] LABS: Syphilis Screen Nonreactive (Nonreactive)
[2022-07-08 11:11] LABS: Herpes Simplex Type 2 IgG <0.90 index
== END 2022-07-07 12:52 | disposition home or self-care (01) ==
LOC: HO.HMGCLDS 12:51
PROVIDERS: PCP Internal Medicine; Visit Provider Internal Medicine
DX: N39.3 Stress incontinence (female) (male) (principal); F33.2 Major depressive disorder, recurrent severe without psychotic features; F41.1 Generalized anxiety disorder; F41.0 Panic disorder [episodic paroxysmal anxiety]; Z20.2 Contact with and (suspected) exposure to infections with a predominantly sexual mode of transmission
CPT/HCPCS: 36415; 80048; 86695; 86696; 86704; 86706; 86709; 86780; 86803; 87340; 87389

== ENCOUNTER 2022-07-28 16:00 | Outpatient (RCR) | payer OTHER, SELFPAY ==
--- NOTE | 2022-06-01 10:51 | MHC.PT.EP ---
[facility] [place] Office [place] Office [place] Office [address] Kiley Card [address] [phone] F: [phone] F: [phone] F: [phone] F: [phone] Physical Therapy Plan of Care Date of Evaluation: Date of Surgery: 05/27/22 Diagnosis: LEFT ROTATOR CUFF REPAIR Assessment: JOSE L IS A PLEASANT 52 YO FEMALE WHO PRESENTS PRESENTS S/P ROTATOR CUFF REPAIR, POD #5 FOR ORTHOPEDIC FOLLOW UP AND PT EVALUATION. UPON EXAM HE DEMONSTRATES THE EXPECTED IMPAIRMENTS OF DECREASED ROM, DECREASED STRENGTH, ALTERED POSTURE AND POSITIONING, INCREASED UPPER TRAP GUARDING, AND INCREASED PAIN AND EDEMA. FUNCTIONAL LIMITATIONS INCLUDE DECREASED ABILITY TO PERFORM HOMEMAKING AND SELF-CARE TASKS, DECREASED ABILITY TO PERFORM PUSHING, PULLING, LIFTING AND REACHING. INABILITY TO DRIVE AND PERFORM WORK TASKS, DECREASED PARTICIPATION IN COMMUNITY AND RECREATIONAL ACTIVITIES AND DISRUPTED SLEEP. THE PT IS A GOOD CANDIDATE FOR SKILLED PT DUE TO AGE, POTENTIAL REMEDIATION OF IMPAIRMENTS, TYPICAL DISEASE/CONDITION PROGRESSION AND PROGNOSIS, COMORBIDITIES, AND MOTIVATION. PT WOULD BENEFIT FROM TAILORED PROGRAM OF THERAPEUTIC ACTIVITIES, FUNCTIONAL TRAINING,, POSTURAL EDUCATION, NEUROMUSCULAR RE-EDUCATION, AND MODALITIES NEEDED. Frequency and Duration: The patient will be seen 2 X WEEK FOR 12 WEEKS Short Term Goals: INITIATE HEP AND PROMOTE SELF MANAGEMENT OF SYMPTOMS Residential Goals: FULL, PAIN FREE ROM FULL UE STRENGTH, PAIN FREE TO PERFORM COMPUTER AND WORK TASKS WITHOUT RESTRICTION AND PAIN NO GREATER THAN 2/[address] OBJECT AT MINIMUM OF 5# INTO CABINET AT SHOULDER HEIGHT Treatment Plan: Modalities to reduce pain, spasms and effusion. Manual therapy to restore motion and function. Therapeutic exercise to improve strength and flexibility. Neuromuscular re-education for posture and balance. Therapeutic activities to return to functional activities of daily living. Electronically signed by: GONZALO DEWITT PT, DPT Please sign and return to therapist. Thank you for your referral.
--- NOTE | 2022-08-18 11:09 | MHC.PT.DC ---
[facility] [place] [facility] [place] Office [place] Office [address] Kiley Card [address] [facility] [phone] F: [phone] F: [phone] F: [phone] F: [phone] Physical Therapy Discharge Report Diagnosis: LEFT ROTATOR CUFF REPAIR (full thickness supraspinatus tear and subacromial decompression) Date of Surgery: 05/27/22 Date of Evaluation: 06/01/22 Date of Discharge: 08/18/22 Treatments to Date: 7 Cancellations to Date: 2 No Shows to Date: 0 Discharge Status: Patient Elected to Stop Discharge Summary: Patient was last seen for PT 07/28/22. She was 8 weeks post op as of 07/22/22. Patient was called as she did not schedule any FUP visits after that and she said she requested to be discharged as she has difficulty attending PT visits. She would like to be discharged at this time. I recommend continued PT but she requests discharge. She had FUP visits with orthopedic surgeon for her care. Electronically signed by: Lin Kelly, PT, DPT Please sign and return to therapist. Thank you for your referral.
== END 2022-08-18 11:10 | disposition home or self-care (01) ==
LOC: HO.PT 16:00
PROVIDERS: Visit Provider Physician Assistant
DX: Z98.890 Other specified postprocedural states (principal)
CPT/HCPCS: 97110; 97140; 97161

== ENCOUNTER 2022-12-16 15:39 | Emergency (ER) | payer OTHER, SELFPAY ==
[2022-12-16 16:25] VITALS: BP 129/87; PULSE 92; RESP 18; TEMP 36.1; O2SAT 98; BMI 31.7
--- NOTE | 2022-12-16 16:25 | ED.DIZZY ---
HPI - Dizziness General Chief Complaint: Psychiatric Symptoms <Mary Smith NP - Last Filed: 12/16/22 16:29> Stated Complaint: lightheaded, fatigue, depressed <Mary Smith NP - Last Filed: 12/16/22 16:29> Time Seen by Provider: 12/16/22 16:38 <Mary Smith NP - Last Filed: 12/16/22 16:29> Source: patient <RUBIA Jean - Last Filed: 12/16/22 17:24> Mode of arrival: ambulatory <RUBIA Jean - Last Filed: 12/16/22 17:24> Limitations: no limitations <RUBIA Jean - Last Filed: 12/16/22 17:24> History of Present Illness HPI Narrative: 52 yo female with history of major depression, bipolar disorder, anxiety with panic attacks, history of self harm/cutting who presents to the ER for evaluation of worsening depression as yesterday. She reports that her depression has been relatively well controlled with medications and therapy. She states her mental state has been declining with dangerous thoughts. She was starting to have thoughts about cutting and attempting to kill herself. She came to the ER before she would attempt. She also reports associated with her depression has been lightheadedness for the last day as well. She admits to crying a lot, hyperventilating and having panic attacks. No weakness, numbness, tingling, vertigo. <RUBIA Jean - Last Filed: 12/16/22 17:24> MD elicited complaint: lightheadedness <RUBIA Jean - Last Filed: 12/16/22 17:24> Onset (ago): day(s) (1) <RUBIA Jean - Last Filed: 12/16/22 17:24> Timing: gradual onset <RUBIA Jean Last Filed: 12/16/22 17:24> Severity: severe <RUBIA Jean Last Filed: 12/16/22 17:24> Description: lightheadedness <RUBIA Jean Last Filed: 12/16/22 17:24> Context: anxiety <RUBIA Jean Last Filed: 12/16/22 17:24> History of similar symptoms: Yes <RUBIA Jean - Last Filed: 12/16/22 17:24> Exacerbating factors: nothing <RUBIA Jean - Last Filed: 12/16/22 17:24> Relieving factors: nothing <RUBIA Jean - Last Filed: 12/16/22 17:24> Associated symptoms: denies other symptoms <RUBIA Jean - Last Filed: 12/16/22 17:24> Related Data Home Medications: Home Medications Medication Instructions Recorded Confirmed gabapentin 400 mg capsule 400 mg PO TID 12/11/20 12/16/22 lamotrigine 100 mg tablet 100 mg PO DAILY 07/07/22 12/16/22 clonazepam 1 mg tablet 1 mg PO TID 12/16/22 12/16/22 solifenacin 10 mg tablet (Vesicare) 10 mg PO DAILY PRN Abdominal 12/16/22 12/16/22 Discomfort Previous Rx's Medication Instructions Recorded acetaminophen 500 mg tablet 1,000 mg PO QID PRN pain #30 tabs 06/06/22 ibuprofen 600 mg tablet 600 mg PO Q6H PRN for pain #120 12/11/22 tabs <Mary Smith NP - Last Filed: 12/16/22 16:29> Allergies/Adverse Reactions: Allergies Allergy/AdvReac Type Severity Reaction Status Date / Time mannitol [From ZOMETA] Allergy Severe DIFFICULTY Verified 12/16/22 16:25 SWALLOWING water for injection,sterile Allergy Severe DIFFICULTY Verified 12/16/22 16:25 [From ZOMETA] SWALLOWING zoledronic acid [From ZOMETA] Allergy Severe DIFFICULTY Verified 12/16/22 16:25 SWALLOWING latex [Latex] Allergy Intermediate RASH Verified 12/16/22 16:25 hydroxyzine [From VISTARIL] Allergy Mild SWELLING Verified 12/16/22 16:25 <Mary Smith NP - Last Filed: 12/16/22 16:29> Review of Systems Review of Systems: Yes all other systems are reviewed and are negative <RUBIA Jean Last Filed: 12/16/22 17:24> [facility] Past Medical History Medical History: Medical History Anxiety Depression <Mary Smith NP - Last Filed: 12/16/22 16:29> Surgical History: Surgical History History of tubal ligation Hx of section Hx of right breast biopsy <Mary Smith NP - Last Filed: 12/16/22 16:29> Social History Social History: Social History Housing: Apartment Are you a primary child care attendant school to a significant other at home: No Do you presently have visiting nurse or other home services: No Alcohol intake: never Patient Tobacco Use Status: Former Tobacco user Quit Date: 1996 Tobacco use type: Cigarette Years Smoked: 8 years e-Cigarette/Vaping Use: Never Used Use of substances other than those prescribed or required for medical reasons: No Advance Directives: No Advance Directives Information Provided: No Patient : No service: No Current occupational status: disabled 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 Cognitive needs: No Hearing needs: No Vision needs: No <Mary Smith NP - Last Filed: 12/16/22 16:29> Physical Exam Vital Signs: Vital Signs: Last Vital Signs Temp 97.0 F 12/16/22 16:25 Pulse 95 12/16/22 17:10 Resp 18 12/16/22 16:25 BP 116/86 12/16/22 17:10 Pulse Ox 98 12/16/22 16:25 O2 Del Method Room Air 12/16/22 16:25 BMI result Body Mass Index 31.8 <Mary Smith NP - Last Filed: 12/16/22 16:29> Vital Signs: Last Vital Signs Temp 97.0 F 12/16/22 16:25 Pulse 95 12/16/22 17:10 Resp 18 12/16/22 16:25 BP 116/86 12/16/22 17:10 Pulse Ox 98 12/16/22 16:25 O2 Del Method Room Air 12/16/22 16:25 BMI result Body Mass Index 31.8 <RUBIA Jean - Last Filed: 12/16/22 17:24> Vital Signs: Last Vital Signs Temp 97.0 F 12/16/22 16:25 Pulse 95 12/16/22 17:10 Resp 18 12/16/22 16:25 BP 116/86 12/16/22 17:10 Pulse Ox 98 12/16/22 16:25 O2 Del Method Room Air 12/16/22 16:25 BMI result Body Mass Index 31.8 <RUBIA Costa - Last Filed: 12/16/22 23:15> Appearance: Alert. Oriented X3. Tearful Head: normocephalic, atraumatic. Eyes: Pupils equal, round and reactive to light. ENT: Pharynx normal. No tonsillar swelling or exudate. Neck: Normal inspection. Neck supple. CVS: Normal heart rate and rhythm. Pulses normal. Respiratory: No respiratory distress. Breath sounds normal. Abdomen: Soft and nontender. +BS x4 Skin: Skin warm and dry. Normal skin color. Normal skin turgor. No rashes. Extremities: No lower extremity edema. No joint swelling. Neuro/psych: Oriented X 3. No motor deficit. No sensory deficit. CN II-XII intact. Normal speech and cognition. Tearful with depressed mood, makes eye contact <RUBIA Jean - Last Filed: 12/16/22 17:24> Course Course Course Narrative: This is a rapid medical exam. Deferred additional HPI, ROS, PE to primary provider. 52yo female with history of anxiety, depression here with complaints of feeling lightheaded/dizzy since yesterday. Also complaints of depression, SI with no plan. Followed by [facility], no recent med changes. No HI, hallucinations. Will obtain labs, EKG, orthos Once medically cleared will need CARE team eval. VSS. Charge nurse notified that patient needs immediate bedding due to SI <Mary Smith NP - Last Filed: 12/16/22 16:29> Reevaluation(s) Reevaluation #1: Patient was seen by CARE team she admits to thoughts of self harm earlier but wasnt going to act on them. At this time denies SI and HI. Good resources at home. Has a safety plan in place. Will follow up with outpatient providers. Comfortable w/ plan <RUBIA Costa - Last Filed: 12/16/22 23:15> Time: 23:13 <RUBIA Costa - Last Filed: 12/16/22 23:15> Medical Decision Making Medical Decision Making MDM Narrative: 52-year-old female with history of anxiety and depression, bipolar disorder presents ER for evaluation of worsening pain since yesterday. She admits to suicidal thoughts with intention of cutting herself. She is tearful and depressed on arrival. She reports some intermittent lightheadedness for the last 24 hours. Orthostatic vital signs are unremarkable. No anemia on lab workup. She will need to be seen by the care team once medically cleared <RUBIA Jean - Last Filed: 12/16/22 17:24> Differential Diagnosis Differential Diagnoses: The differential diagnosis associated with the presentation includes <RUBIA Jean - Last Filed: 12/16/22 17:24> worsening major depression, acute psychosis, substance abuse mood disorder, panic attacks, doubt ACS or CVA as cause of lightheadedness <RUBIA Jean - Last Filed: 12/16/22 17:24> Admission/Observation Consideration of admission/observation: Escalation of care including admission/observation considered <RUBIA Jean - Last Filed: 12/16/22 17:24> Lab Data [facility] Lab Attestation statement: I reviewed the patient's lab results. <RUBIA Jean - Last Filed: 12/16/22 17:24> Result Diagrams: 12/16/22 17:04 12/16/22 17:04 <Mary Smith NP - Last Filed: 12/16/22 16:29> Labs: Lab Results 12/16/22 12/16/22 12/16/22 Range/Units 17:04 17:04 17:05 WBC 7.2 (4.8-10.8) X10*3/uL RBC 4.72 (4.20-5.50) X10*6/uL Hgb 13.7 (12.0-16.0) g/dl Hct 42.3 (37.0-47.0) % MCV 89.6 (80.0-98.0) fL MCH 29.0 (27.0-33.0) pg MCHC 32.4 (31.0-35.0) g/dl RDW 12.6 (11.0-16.0) % Plt Count 243 (160-400) X10*3/uL MPV 8.9 L (9.4-12.3) fL Immature Gran % (Auto) 0.3 (0.0-0.4) % Neut % (Auto) 54.7 (45-73) % Lymph % (Auto) 34.6 (20-40) % Rich % (Auto) 7.0 (2-11) % Eos % (Auto) 3.1 (0-4) % Baso % (Auto) 0.3 (0-2) % Lymph # (Auto) 2.5 (1.2-4.9) X10*3/uL Rich # (Auto) 0.5 (0.1-1.2) X10*3/uL Eos # (Auto) 0.2 (0.0-0.4) X10*3/uL Baso # (Auto) 0.0 (0.0-0.2) X10*3/uL Abs Immat Gran (auto) 0.02 (0.00-0.03) X10*3/uL Absolute Neuts (auto) 3.9 (2.0-8.3) x10*3/uL Absolute Nucleated RBC 0.000 (0.0-0.012) X10*3/uL Nucleated RBC % (auto) 0.0 (0.0-0.2) /100WBC Sodium 145 (135-145) mmol/L Potassium 4.1 (3.3-5.1) mmol/L Chloride 106 (96-108) mmol/L Carbon Dioxide 31 H (22-29) mmol/L Anion Gap 12 (12-20) BUN 15 (9-16) mg/dL Creatinine 0.82 (0.5-1.4) mg/dL Estim Creat Clear Calc 86.2 Estimated GFR > 60 Random Glucose 68 (60-115) mg/dL Calcium 9.3 (8.4-10.2) mg/dL Magnesium 2.1 (1.6-2.6) mg/dL Total Bilirubin 0.3 (0.0-1.0) mg/dL Direct Bilirubin 0.1 (0.0-0.5) mg/dL AST 15 (5-31) U/L ALT 12 (0-31) U/L Alkaline Phosphatase 131 H (39-117) U/L Total Protein 6.8 (6.5-8.0) g/dL Albumin 4.3 (3.5-5.0) g/dL Urine Color Urine Appearance Urine pH (5.0-9.0) Ur Specific [place] (1.005-1.025) Urine Protein (Neg-Trace) mg/dL Urine Glucose (UA) (Negative) mg/dL Urine Ketones (Negative) mg/dL Urine Blood (Negative) Urine Nitrite (Negative) Ur Leukocyte Esterase (Negative) Urine RBC (0-2) /HPF Urine WBC (0-5) /HPF Ur Squamous Epith Cells (0-2) /HPF Urine Bacteria (None Seen) Hyaline Casts (0-2) /LPF Salicylates < 5.0 L (15-30) mg/dL Urine Opiates Screen Not Detected (Not Detect) Urine Fentanyl Screen Not Detected (Not Detect) Acetaminophen < 17 (<30) mcg/mL Ur Barbiturates Screen Not Detected (Not Detect) Ur Phencyclidine Scrn Not Detected (Not Detect) Ur Amphetamines Screen Not Detected (Not Detect) U Benzodiazepines Scrn Not Detected (Not Detect) Urine Cocaine Screen Not Detected (Not Detect) U Marijuana (THC) Screen Not Detected (Not Detect) Ethyl Alcohol < 10 mg/dL COVID-19 (DAYAN) (Negative) COVID-19 Clin Com 12/16/22 12/16/22 Range/Units 17:06 17:06 WBC (4.8-10.8) X10*3/uL RBC (4.20-5.50) X10*6/uL Hgb (12.0-16.0) g/dl Hct (37.0-47.0) % MCV (80.0-98.0) fL MCH (27.0-33.0) pg MCHC (31.0-35.0) g/dl RDW (11.0-16.0) % Plt Count (160-400) X10*3/uL MPV (9.4-12.3) fL Immature Gran % (Auto) (0.0-0.4) % Neut % (Auto) (45-73) % Lymph % (Auto) (20-40) % Rich % (Auto) (2-11) % Eos % (Auto) (0-4) % Baso % (Auto) (0-2) % Lymph # (Auto) (1.2-4.9) X10*3/uL Rich # (Auto) (0.1-1.2) X10*3/uL Eos # (Auto) (0.0-0.4) X10*3/uL Baso # (Auto) (0.0-0.2) X10*3/uL Abs Immat Gran (auto) (0.00-0.03) X10*3/uL Absolute Neuts (auto) (2.0-8.3) x10*3/uL Absolute Nucleated RBC (0.0-0.012) X10*3/uL Nucleated RBC % (auto) (0.0-0.2) /100WBC Sodium (135-145) mmol/L Potassium (3.3-5.1) mmol/L Chloride (96-108) mmol/L Carbon Dioxide (22-29) mmol/L Anion Gap (12-20) BUN (9-16) mg/dL Creatinine (0.5-1.4) mg/dL Estim Creat Clear Calc Estimated GFR Random Glucose (60-115) mg/dL Calcium (8.4-10.2) mg/dL Magnesium (1.6-2.6) mg/dL Total Bilirubin (0.0-1.0) mg/dL Direct Bilirubin (0.0-0.5) mg/dL AST (5-31) U/L ALT (0-31) U/L Alkaline Phosphatase (39-117) U/L Total Protein (6.5-8.0) g/dL Albumin (3.5-5.0) g/dL Urine Color Yellow Urine Appearance Clear Urine pH 6.0 (5.0-9.0) Ur Specific [place] 1.020 (1.005-1.025) Urine Protein Negative (Neg-Trace) mg/dL Urine Glucose (UA) Negative (Negative) mg/dL Urine Ketones Negative (Negative) mg/dL Urine Blood Negative (Negative) Urine Nitrite Negative (Negative) Ur Leukocyte Esterase Trace H (Negative) Urine RBC 0-2 (0-2) /HPF Urine WBC 0-5 (0-5) /HPF Ur Squamous Epith Cells 6-10 (0-2) /HPF Urine Bacteria 1+ (None Seen) Hyaline Casts 0-2 (0-2) /LPF Salicylates (15-30) mg/dL Urine Opiates Screen (Not Detect) Urine Fentanyl Screen (Not Detect) Acetaminophen (<30) mcg/mL Ur Barbiturates Screen (Not Detect) Ur Phencyclidine Scrn (Not Detect) Ur Amphetamines Screen (Not Detect) U Benzodiazepines Scrn (Not Detect) Urine Cocaine Screen (Not Detect) U Marijuana (THC) Screen (Not Detect) Ethyl Alcohol mg/dL COVID-19 (DAYAN) Negative (Negative) COVID-19 Clin Com See Note <Mary Smith NP - Last Filed: 12/16/22 16:29> Lab Results 12/16/22 12/16/22 12/16/22 Range/Units 17:04 17:04 17:05 WBC 7.2 (4.8-10.8) X10*3/uL RBC 4.72 (4.20-5.50) X10*6/uL Hgb 13.7 (12.0-16.0) g/dl Hct 42.3 (37.0-47.0) % MCV 89.6 (80.0-98.0) fL MCH 29.0 (27.0-33.0) pg MCHC 32.4 (31.0-35.0) g/dl RDW 12.6 (11.0-16.0) % Plt Count 243 (160-400) X10*3/uL MPV 8.9 L (9.4-12.3) fL Immature Gran % (Auto) 0.3 (0.0-0.4) % Neut % (Auto) 54.7 (45-73) % Lymph % (Auto) 34.6 (20-40) % Rich % (Auto) 7.0 (2-11) % Eos % (Auto) 3.1 (0-4) % Baso % (Auto) 0.3 (0-2) % Lymph # (Auto) 2.5 (1.2-4.9) X10*3/uL Rich # (Auto) 0.5 (0.1-1.2) X10*3/uL Eos # (Auto) 0.2 (0.0-0.4) X10*3/uL Baso # (Auto) 0.0 (0.0-0.2) X10*3/uL Abs Immat Gran (auto) 0.02 (0.00-0.03) X10*3/uL Absolute Neuts (auto) 3.9 (2.0-8.3) x10*3/uL Absolute Nucleated RBC 0.000 (0.0-0.012) X10*3/uL Nucleated RBC % (auto) 0.0 (0.0-0.2) /100WBC Sodium 145 (135-145) mmol/L Potassium 4.1 (3.3-5.1) mmol/L Chloride 106 (96-108) mmol/L Carbon Dioxide 31 H (22-29) mmol/L Anion Gap 12 (12-20) BUN 15 (9-16) mg/dL Creatinine 0.82 (0.5-1.4) mg/dL Estim Creat Clear Calc 86.2 Estimated GFR > 60 Random Glucose 68 (60-115) mg/dL Calcium 9.3 (8.4-10.2) mg/dL Magnesium 2.1 (1.6-2.6) mg/dL Total Bilirubin 0.3 (0.0-1.0) mg/dL Direct Bilirubin 0.1 (0.0-0.5) mg/dL AST 15 (5-31) U/L ALT 12 (0-31) U/L Alkaline Phosphatase 131 H (39-117) U/L Total Protein 6.8 (6.5-8.0) g/dL Albumin 4.3 (3.5-5.0) g/dL Urine Color Urine Appearance Urine pH (5.0-9.0) Ur Specific [place] (1.005-1.025) Urine Protein (Neg-Trace) mg/dL Urine Glucose (UA) (Negative) mg/dL Urine Ketones (Negative) mg/dL Urine Blood (Negative) Urine Nitrite (Negative) Ur Leukocyte Esterase (Negative) Urine RBC (0-2) /HPF Urine WBC (0-5) /HPF Ur Squamous Epith Cells (0-2) /HPF Urine Bacteria (None Seen) Hyaline Casts (0-2) /LPF Salicylates < 5.0 L (15-30) mg/dL Urine Opiates Screen Not Detected (Not Detect) Urine Fentanyl Screen Not Detected (Not Detect) Acetaminophen < 17 (<30) mcg/mL Ur Barbiturates Screen Not Detected (Not Detect) Ur Phencyclidine Scrn Not Detected (Not Detect) Ur Amphetamines Screen Not Detected (Not Detect) U Benzodiazepines Scrn Not Detected (Not Detect) Urine Cocaine Screen Not Detected (Not Detect) U Marijuana (THC) Screen Not Detected (Not Detect) Ethyl Alcohol < 10 mg/dL COVID-19 (DAYAN) (Negative) COVID-19 Clin Com 12/16/22 12/16/22 Range/Units 17:06 17:06 WBC (4.8-10.8) X10*3/uL RBC (4.20-5.50) X10*6/uL Hgb (12.0-16.0) g/dl Hct (37.0-47.0) % MCV (80.0-98.0) fL MCH (27.0-33.0) pg MCHC (31.0-35.0) g/dl RDW (11.0-16.0) % Plt Count (160-400) X10*3/uL MPV (9.4-12.3) fL Immature Gran % (Auto) (0.0-0.4) % Neut % (Auto) (45-73) % Lymph % (Auto) (20-40) % Rich % (Auto) (2-11) % Eos % (Auto) (0-4) % Baso % (Auto) (0-2) % Lymph # (Auto) (1.2-4.9) X10*3/uL Rich # (Auto) (0.1-1.2) X10*3/uL Eos # (Auto) (0.0-0.4) X10*3/uL Baso # (Auto) (0.0-0.2) X10*3/uL Abs Immat Gran (auto) (0.00-0.03) X10*3/uL Absolute Neuts (auto) (2.0-8.3) x10*3/uL Absolute Nucleated RBC (0.0-0.012) X10*3/uL Nucleated RBC % (auto) (0.0-0.2) /100WBC Sodium (135-145) mmol/L Potassium (3.3-5.1) mmol/L Chloride (96-108) mmol/L Carbon Dioxide (22-29) mmol/L Anion Gap (12-20) BUN (9-16) mg/dL Creatinine (0.5-1.4) mg/dL Estim Creat Clear Calc Estimated GFR Random Glucose (60-115) mg/dL Calcium (8.4-10.2) mg/dL Magnesium (1.6-2.6) mg/dL Total Bilirubin (0.0-1.0) mg/dL Direct Bilirubin (0.0-0.5) mg/dL AST (5-31) U/L ALT (0-31) U/L Alkaline Phosphatase (39-117) U/L Total Protein (6.5-8.0) g/dL Albumin (3.5-5.0) g/dL Urine Color Yellow Urine Appearance Clear Urine pH 6.0 (5.0-9.0) Ur Specific [place] 1.020 (1.005-1.025) Urine Protein Negative (Neg-Trace) mg/dL Urine Glucose (UA) Negative (Negative) mg/dL Urine Ketones Negative (Negative) mg/dL Urine Blood Negative (Negative) Urine Nitrite Negative (Negative) Ur Leukocyte Esterase Trace H (Negative) Urine RBC 0-2 (0-2) /HPF Urine WBC 0-5 (0-5) /HPF Ur Squamous Epith Cells 6-10 (0-2) /HPF Urine Bacteria 1+ (None Seen) Hyaline Casts 0-2 (0-2) /LPF Salicylates (15-30) mg/dL Urine Opiates Screen (Not Detect) Urine Fentanyl Screen (Not Detect) Acetaminophen (<30) mcg/mL Ur Barbiturates Screen (Not Detect) Ur Phencyclidine Scrn (Not Detect) Ur Amphetamines Screen (Not Detect) U Benzodiazepines Scrn (Not Detect) Urine Cocaine Screen (Not Detect) U Marijuana (THC) Screen (Not Detect) Ethyl Alcohol mg/dL COVID-19 (DAYAN) Negative (Negative) COVID-19 Clin Com See Note <RUBIA Jean - Last Filed: 12/16/22 17:24> Lab Results 12/16/22 12/16/22 12/16/22 Range/Units 17:04 17:04 17:05 WBC 7.2 (4.8-10.8) X10*3/uL RBC 4.72 (4.20-5.50) X10*6/uL Hgb 13.7 (12.0-16.0) g/dl Hct 42.3 (37.0-47.0) % MCV 89.6 (80.0-98.0) fL MCH 29.0 (27.0-33.0) pg MCHC 32.4 (31.0-35.0) g/dl RDW 12.6 (11.0-16.0) % Plt Count 243 (160-400) X10*3/uL MPV 8.9 L (9.4-12.3) fL Immature Gran % (Auto) 0.3 (0.0-0.4) % Neut % (Auto) 54.7 (45-73) % Lymph % (Auto) 34.6 (20-40) % Rich % (Auto) 7.0 (2-11) % Eos % (Auto) 3.1 (0-4) % Baso % (Auto) 0.3 (0-2) % Lymph # (Auto) 2.5 (1.2-4.9) X10*3/uL Rich # (Auto) 0.5 (0.1-1.2) X10*3/uL Eos # (Auto) 0.2 (0.0-0.4) X10*3/uL Baso # (Auto) 0.0 (0.0-0.2) X10*3/uL Abs Immat Gran (auto) 0.02 (0.00-0.03) X10*3/uL Absolute Neuts (auto) 3.9 (2.0-8.3) x10*3/uL Absolute Nucleated RBC 0.000 (0.0-0.012) X10*3/uL Nucleated RBC % (auto) 0.0 (0.0-0.2) /100WBC Sodium 145 (135-145) mmol/L Potassium 4.1 (3.3-5.1) mmol/L Chloride 106 (96-108) mmol/L Carbon Dioxide 31 H (22-29) mmol/L Anion Gap 12 (12-20) BUN 15 (9-16) mg/dL Creatinine 0.82 (0.5-1.4) mg/dL Estim Creat Clear Calc 86.2 Estimated GFR > 60 Random Glucose 68 (60-115) mg/dL Calcium 9.3 (8.4-10.2) mg/dL Magnesium 2.1 (1.6-2.6) mg/dL Total Bilirubin 0.3 (0.0-1.0) mg/dL Direct Bilirubin 0.1 (0.0-0.5) mg/dL AST 15 (5-31) U/L ALT 12 (0-31) U/L Alkaline Phosphatase 131 H (39-117) U/L Total Protein 6.8 (6.5-8.0) g/dL Albumin 4.3 (3.5-5.0) g/dL Urine Color Urine Appearance Urine pH (5.0-9.0) Ur Specific [place] (1.005-1.025) Urine Protein (Neg-Trace) mg/dL Urine Glucose (UA) (Negative) mg/dL Urine Ketones (Negative) mg/dL Urine Blood (Negative) Urine Nitrite (Negative) Ur Leukocyte Esterase (Negative) Urine RBC (0-2) /HPF Urine WBC (0-5) /HPF Ur Squamous Epith Cells (0-2) /HPF Urine Bacteria (None Seen) Hyaline Casts (0-2) /LPF Salicylates < 5.0 L (15-30) mg/dL Urine Opiates Screen Not Detected (Not Detect) Urine Fentanyl Screen Not Detected (Not Detect) Acetaminophen < 17 (<30) mcg/mL Ur Barbiturates Screen Not Detected (Not Detect) Ur Phencyclidine Scrn Not Detected (Not Detect) Ur Amphetamines Screen Not Detected (Not Detect) U Benzodiazepines Scrn Not Detected (Not Detect) Urine Cocaine Screen Not Detected (Not Detect) U Marijuana (THC) Screen Not Detected (Not Detect) Ethyl Alcohol < 10 mg/dL COVID-19 (DAYAN) (Negative) COVID-19 Clin Com 12/16/22 12/16/22 Range/Units 17:06 17:06 WBC (4.8-10.8) X10*3/uL RBC (4.20-5.50) X10*6/uL Hgb (12.0-16.0) g/dl Hct (37.0-47.0) % MCV (80.0-98.0) fL MCH (27.0-33.0) pg MCHC (31.0-35.0) g/dl RDW (11.0-16.0) % Plt Count (160-400) X10*3/uL MPV (9.4-12.3) fL Immature Gran % (Auto) (0.0-0.4) % Neut % (Auto) (45-73) % Lymph % (Auto) (20-40) % Rich % (Auto) (2-11) % Eos % (Auto) (0-4) % Baso % (Auto) (0-2) % Lymph # (Auto) (1.2-4.9) X10*3/uL Rich # (Auto) (0.1-1.2) X10*3/uL Eos # (Auto) (0.0-0.4) X10*3/uL Baso # (Auto) (0.0-0.2) X10*3/uL Abs Immat Gran (auto) (0.00-0.03) X10*3/uL Absolute Neuts (auto) (2.0-8.3) x10*3/uL Absolute Nucleated RBC (0.0-0.012) X10*3/uL Nucleated RBC % (auto) (0.0-0.2) /100WBC Sodium (135-145) mmol/L Potassium (3.3-5.1) mmol/L Chloride (96-108) mmol/L Carbon Dioxide (22-29) mmol/L Anion Gap (12-20) BUN (9-16) mg/dL Creatinine (0.5-1.4) mg/dL Estim Creat Clear Calc Estimated GFR Random Glucose (60-115) mg/dL Calcium (8.4-10.2) mg/dL Magnesium (1.6-2.6) mg/dL Total Bilirubin (0.0-1.0) mg/dL Direct Bilirubin (0.0-0.5) mg/dL AST (5-31) U/L ALT (0-31) U/L Alkaline Phosphatase (39-117) U/L Total Protein (6.5-8.0) g/dL Albumin (3.5-5.0) g/dL Urine Color Yellow Urine Appearance Clear Urine pH 6.0 (5.0-9.0) Ur Specific [place] 1.020 (1.005-1.025) Urine Protein Negative (Neg-Trace) mg/dL Urine Glucose (UA) Negative (Negative) mg/dL Urine Ketones Negative (Negative) mg/dL Urine Blood Negative (Negative) Urine Nitrite Negative (Negative) Ur Leukocyte Esterase Trace H (Negative) Urine RBC 0-2 (0-2) /HPF Urine WBC 0-5 (0-5) /HPF Ur Squamous Epith Cells 6-10 (0-2) /HPF Urine Bacteria 1+ (None Seen) Hyaline Casts 0-2 (0-2) /LPF Salicylates (15-30) mg/dL Urine Opiates Screen (Not Detect) Urine Fentanyl Screen (Not Detect) Acetaminophen (<30) mcg/mL Ur Barbiturates Screen (Not Detect) Ur Phencyclidine Scrn (Not Detect) Ur Amphetamines Screen (Not Detect) U Benzodiazepines Scrn (Not Detect) Urine Cocaine Screen (Not Detect) U Marijuana (THC) Screen (Not Detect) Ethyl Alcohol mg/dL COVID-19 (DAYAN) Negative (Negative) COVID-19 Clin Com See Note <RUBIA Costa - Last Filed: 12/16/22 23:15> External Record Review External record reviewed: Outpatient record, Prior outpatient labs and Prior outpatient radiology <RUBIA Jean - Last Filed: 12/16/22 17:24> Chronic Conditions Patient?s care impacted by: Other (depression and anxiety ) <RUBIA Jean - Last Filed: 12/16/22 17:24> Critical Care Time Critical Care Time Critical Care Time: No <RUBIA Jean - Last Filed: 12/16/22 17:24> Discharge Plan Discharge Clinical Impression: Suicidal ideation, Generalized anxiety disorder with panic attacks, Depression <Mary Smith NP - Last Filed: 12/16/22 16:29> Patient Disposition: Home, Self-Care <Mary Smith NP - Last Filed: 12/16/22 16:29> Instructions: Depression (ED), Anxiety (ED), Help Prevent Suicide (ED) <Mary Smith NP - Last Filed: 12/16/22 16:29> Additional Instructions: Take your medications as prescribed. If you were prescribed antibiotics today, it is important that you take your medication to their entirety, do not skip any doses, do not finish them early. Follow-up with your primary care provider this week. Return to the emergency department with new or worsening symptoms. Such as fevers, chills, chest pain, shortness of breath, nausea, vomiting, dizziness, headache, vision changes, lethargy, suicidal or homicidal ideation, hallucination In case of emergency call 911 <Mary Smith NP - Last Filed: 12/16/22 16:29> Prescriptions: No Action ibuprofen 600 mg tablet 600 mg PO Q6H PRN (Reason: for pain) Qty: 120 0RF acetaminophen 500 mg tablet 1,000 mg PO QID PRN (Reason: pain) Qty: 30 0RF clonazepam 1 mg tablet 1 mg PO TID solifenacin [Vesicare] 10 mg tablet 10 mg PO DAILY PRN (Reason: Abdominal Discomfort) gabapentin 400 mg capsule 400 mg PO TID lamotrigine 100 mg tablet 100 mg PO DAILY <Mary Smith NP - Last Filed: 12/16/22 16:29> Referrals: [facility] [Provider Group] - 2 days Venancio Aldana MD [Primary Care Provider] - 2 days <Mary Smith NP - Last Filed: 12/16/22 16:29> Interventions: [place]-Suicide Risk Severity Scale Last Done: 12/16/22 17:10 <Mary Smith NP - Last Filed: 12/16/22 16:29>
--- NOTE | 2022-12-16 16:27 | ECG_ITS ---
Test Reason : med clearance Blood Pressure : / mmHG Vent. Rate : 070 BPM Atrial Rate : 070 BPM P-R Int : 162 ms QRS Dur : 084 ms QT Int : 386 ms P-R-T Axes : 042 031 031 degrees QTc Int : 416 ms Normal sinus rhythm Normal ECG When compared with ECG of 31-MAR-2013 22:00, No significant change was found Referred By: Mary Smith Electronically Signed By:MACHO VALENTINE MD
[2022-12-16 16:28] VITALS: BP 115/78; PULSE 99
[2022-12-16 17:09] VITALS: BP 122/80; PULSE 86
[2022-12-16 17:10] VITALS: BP 116/86; PULSE 95; BMI 31.8
[2022-12-16 17:17] LABS: MANUAL DIFF FLAG NO
[2022-12-16 17:21] LABS: Appearance Urine Clear; Color Urine Yellow; Glucose Urine UA Negative (Negative); Leukocyte Esterase Urine Trace (Negative); Nitrite Urine Negative (Negative); UMIC TRIGGER UACC YES; Urine Blood Negative (Negative); Urine Ketones Negative (Negative); Urine Protein Negative (Neg-Trace)
[2022-12-16 17:21] LABS: Basophils Percent Auto 0.3 % (0-2); Eosinophils Absolute Auto 0.2 X10*3/uL (0.0-0.4); Eosinophils Percent Auto 3.1 % (0-4); Hematocrit 42.3 % (37.0-47.0); Hemoglobin 13.7 g/dl (12.0-16.0); Imm Gran Abs Auto 0.02 X10*3/uL (0.00-0.03); Imm Gran Pct Auto 0.3 % (0.0-0.4); Lymphocytes Absolute Auto 2.5 X10*3/uL (1.2-4.9); Lymphocytes Percent Auto 34.6 % (20-40); Mean Corpuscular HGB Conc 32.4 g/dl (31.0-35.0); Mean Corpuscular Volume 89.6 fL (80.0-98.0); Mean Platelet Volume 8.9 fL (9.4-12.3); Monocytes Absolute Auto 0.5 X10*3/uL (0.1-1.2); Neutrophils Absolute Auto 3.9 x10*3/uL (2.0-8.3); Neutrophils Percent Auto 54.7 % (45-73); Platelet Count 243 X10*3/uL (160-400); Red Blood Count 4.72 X10*6/uL (4.20-5.50); Red Cell Distribution Width 12.6 % (11.0-16.0); White Blood Count 7.2 X10*3/uL (4.8-10.8)
[2022-12-16 17:29] LABS: Amphetamine Screen Urine Not Detected (Not Detect); Barbiturates, Urine Not Detected (Not Detect); Benzodiazepines Screen Urine Not Detected (Not Detect); Cannabinoid Screen Urine Not Detected (Not Detect); Cocaine Screen Urine Not Detected (Not Detect); Fentanyl, urine Not Detected (Not Detect); Opiate Screen Urine Not Detected (Not Detect); Phencyclidine Screen Urine Not Detected (Not Detect)
[2022-12-16 17:43] LABS: Acetaminophen LAB < 17 mcg/mL (<30); Alanine Aminotransferase 12 U/L (0-31); Albumin Level 4.3 g/dL (3.5-5.0); Alkaline Phosphatase 131 U/L (39-117); Anion Gap 12 (12-20); Aspartate Amino Transferase 15 U/L (5-31); Bilirubin Direct 0.1 mg/dL (0.0-0.5); Bilirubin Total 0.3 mg/dL (0.0-1.0); Blood Urea Nitrogen 15 mg/dL (9-16); Calcium 9.3 mg/dL (8.4-10.2); Carbon Dioxide 31 mmol/L (22-29); Chloride 106 mmol/L (96-108); Creatinine Clr Calc Pharmacy 86.2; Estimated Glomerular Filt Rate > 60; Ethanol < 10 mg/dL; Glucose Random 68 mg/dL (60-115); Magnesium 2.1 mg/dL (1.6-2.6); Potassium 4.1 mmol/L (3.3-5.1); Salicylate < 5.0 mg/dL (15-30); Sodium 145 mmol/L (135-145); Total Protein 6.8 g/dL (6.5-8.0)
[2022-12-16 17:45] LABS: COVID-19 Test Negative (Negative); IDNOW Serial# 08D9AD1C
[2022-12-16 17:54] LABS: Bacteria Urine 1+ (None Seen); Hyaline Casts Urine 0-2 /LPF (0-2); RBC Urine 0-2 /HPF (0-2); WBC Urine 0-5 /HPF (0-5)
== END 2022-12-16 23:29 | disposition home or self-care (01) ==
PROVIDERS: Nurse Practitioner Family; Emergency Provider Emergency Medicine; PCP Internal Medicine
DX: R45.851 Suicidal ideations (principal); F32.9 Major depressive disorder, single episode, unspecified; F41.1 Generalized anxiety disorder; Z79.899 Other long term (current) drug therapy; Z20.822 Contact with and (suspected) exposure to COVID-19
CPT/HCPCS: 36415; 80048; 80076; 80143; 80179; 80307; 81001; 82077; 83735; 85025; 87635; 93005; 99285; S9485

== ENCOUNTER 2023-02-17 08:12 | Outpatient (REF) | payer OTHER, SELFPAY ==
--- NOTE | ~2023-02-17 | MM_ITS ---
EXAMINATION: MM SCREENING DIGITAL BREAST TOMOSYNTHESIS, BILATERAL CLINICAL INFORMATION: Screening. Asymptomatic. The lifetime risk of breast cancer based on the Tyrer-Cuzick Model is 7%. COMPARISON: Mammography: 12/02/2021, 10/02/2020, 07/10/2019, 02/07/2018 TECHNIQUE: Digital breast tomosynthesis is performed in both the craniocaudal and mediolateral oblique views along with computer-aided detection (CAD). Synthesized 2D images are generated from the tomosynthesis. FINDINGS: There are scattered areas of fibroglandular density (ACR BI-RADS breast composition Category b). Breast tissue composition borders on heterogeneously dense. No architectural abnormality or developing density or significant change from prior studies. There are no significant masses, abnormal calcifications, or other abnormalities. The axilla and skin contours are unremarkable. MM/MM tomosynthesis screening BI IMPRESSION: No mammographic evidence of malignancy. ASSESSMENT: BI-RADS 1: Negative RECOMMENDATION: Routine annual mammography screening. This patient's information was entered into a reminder system with a target due date for their next mammogram.
[2023-02-17 11:22] LABS: MANUAL DIFF FLAG NO
[2023-02-17 11:34] LABS: Basophils Absolute Auto 0.1 X10*3/uL (0.0-0.2); Basophils Percent Auto 0.7 % (0-2); Eosinophils Absolute Auto 0.3 X10*3/uL (0.0-0.4); Eosinophils Percent Auto 4.7 % (0-4); Hematocrit 42.4 % (37.0-47.0); Hemoglobin 13.6 g/dl (12.0-16.0); Imm Gran Abs Auto 0.02 X10*3/uL (0.00-0.03); Imm Gran Pct Auto 0.3 % (0.0-0.4); Lymphocytes Absolute Auto 2.8 X10*3/uL (1.2-4.9); Mean Corpuscular HGB Conc 32.1 g/dl (31.0-35.0); Mean Corpuscular Hemoglobin 29.3 pg (27.0-33.0); Mean Corpuscular Volume 91.4 fL (80.0-98.0); Mean Platelet Volume 9.4 fL (9.4-12.3); Monocytes Absolute Auto 0.5 X10*3/uL (0.1-1.2); Monocytes Percent Auto 6.8 % (2-11); Neutrophils Absolute Auto 3.6 x10*3/uL (2.0-8.3); Neutrophils Percent Auto 49.5 % (45-73); Platelet Count 252 X10*3/uL (160-400); Red Blood Count 4.64 X10*6/uL (4.20-5.50); Red Cell Distribution Width 12.8 % (11.0-16.0); White Blood Count 7.2 X10*3/uL (4.8-10.8)
[2023-02-17 11:53] LABS: Alanine Aminotransferase 10 U/L (0-31); Albumin Level 4.1 g/dL (3.5-5.0); Alkaline Phosphatase 93 U/L (39-117); Anion Gap 11 (12-20); Aspartate Amino Transferase 16 U/L (5-31); Bilirubin Total 0.5 mg/dL (0.0-1.0); Blood Urea Nitrogen 20 mg/dL (9-16); Calcium 9.5 mg/dL (8.4-10.2); Carbon Dioxide 30 mmol/L (22-29); Chloride 105 mmol/L (96-108); Cholesterol 187 mg/dL; Estimated Average Glucose 108 mg/dL; Estimated Glomerular Filt Rate > 60; Glucose Fasting 92 mg/dL (60-99); HDL Cholesterol 44 mg/dL; Hemoglobin A1C 129.9177 umol/L; Hemoglobin A1c % 5.4 %; LDL Cholesterol Calculated 110 mg/dl; Potassium 3.9 mmol/L (3.3-5.1); Sodium 142 mmol/L (135-145); Total Protein 7.2 g/dL (6.5-8.0); Triglycerides 168 mg/dL
[2023-02-17 12:15] LABS: TSH reflex Free T4 0.87 uIU/mL (0.32-4.0)
== END 2023-02-17 08:13 | disposition home or self-care (01) ==
LOC: HO.MAMMO 08:12
PROVIDERS: PCP Internal Medicine; Visit Provider Internal Medicine
DX: Z00.01 Encounter for general adult medical examination with abnormal findings (principal); Z12.31 Encounter for screening mammogram for malignant neoplasm of breast; F33.2 Major depressive disorder, recurrent severe without psychotic features; F41.0 Panic disorder [episodic paroxysmal anxiety]; F41.1 Generalized anxiety disorder; N39.3 Stress incontinence (female) (male); R73.01 Impaired fasting glucose; R79.89 Other specified abnormal findings of blood chemistry
CPT/HCPCS: 36415; 77063; 77067; 80053; 80061; 83036; 84443; 85025

== ENCOUNTER 2023-03-17 14:03 | Outpatient (AMB) | payer OTHER, SELFPAY ==
--- NOTE | 2023-03-17 14:08 | A.OFFPC_ITS ---
Vital Signs 03/17/23 14:09 Height 5 ft 4 in Weight 194 lb BMI 33.3 BP 110/72 Blood Pressure Location Lt brachial Position Sitting Pulse 93 Pulse Source Pulse Oximeter Pulse Oximetry (%) 95 Oxygen Delivery Method Room Air Intake Visit Reasons: 4 wk follow up Ozempic Intake Note: Pt is here today for 4 weeks follow up visit on Ozempic. Allergies mannitol [From ZOMETA] Allergy (Severe, Verified 03/17/23 14:11) DIFFICULTY SWALLOWING water for injection,sterile [From ZOMETA] Allergy (Severe, Verified 03/17/23 14:11) DIFFICULTY SWALLOWING zoledronic acid [From ZOMETA] Allergy (Severe, Verified 03/17/23 14:11) DIFFICULTY SWALLOWING latex [Latex] Allergy (Intermediate, Verified 03/17/23 14:11) RASH hydroxyzine [From VISTARIL] Allergy (Mild, Verified 03/17/23 14:11) SWELLING Medication List - Last Reconciled 03/17/23 by Venancio Aldana MD clonazepam 1 mg PO TID gabapentin 400 mg PO TID lamotrigine 100 mg PO DAILY semaglutide 0.25 mg (0.4 mL) subcut QWEEK 30 days solifenacin (Vesicare) 10 mg PO DAILY PRN Tobacco use date assessed: 02/16/23 Dental Screening Dental Screen Date: 03/17/23 Did you have a dental visit in the last 12 months?: Yes Did you have a dental problem in the last 6 months where you did not have access to dental care?: No Was dental information given to patient?: Patient has dentist HPI 4 wk follow up Ozempic HPI Details Patient is 52-year-old female came in today to talk about Mounjaro injection for weight loss She was started on Ozempic 4 weeks ago she has lost 3 lb patient is insisting that she would like to try Mounjaro We talked about the side effect of increased risk of thyroid cancer, pancreatitis, kidney injury, gastric issues. Patient says that she knows all about it 1 of her cousin is taking the medication and she is willing to take the risk. Medications sent starting with 2.5 mg once a week patient is to return in 4 weeks for follow-up appointment We also talked about signs and symptoms of hypoglycemia in what to do if it happens. 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 Wiley Gonzalez, Alyssa Amaro, Skyler Chao and colleagues, with an educational ragini from [employer]. Review of Systems Const Denies chills and Denies fever(s) ENT Denies epistaxis and Denies nasal discharge Card Denies chest pain Resp Denies chest congestion, Denies cough and Denies hemoptysis GI Denies diarrhea and Denies nausea Skin/Breast Denies rash Neuro Reports no additional complaints Psych Reports no additional complaints Endo Reports no additional complaints Physical exam (Primary Care) Vital Signs: Last Vital Signs Pulse 93 03/17/23 14:09 BP 110/72 03/17/23 14:09 Pulse Ox 95 03/17/23 14:09 Oxygen Delivery Method Room Air 03/17/23 14:09 BMI result Body Mass Index 33.3 Tobacco/Smoking Status: Tobacco use Status Tobacco use date assessed 02/16/23 03/17/23 14:09 Patient Tobacco Use Status Never used Tobacco 03/17/23 14:09 Tobacco use type Cigarette 03/17/23 14:09 e-Cigarette/Vaping Use Never Used 03/17/23 14:09 Thrive Assessment: Date of Thrive Assessment Date Thrive assessed 01/28/22 03/17/23 14:09 Const General: cooperative, comfortable and no acute distress Orientation/consciousness: patient oriented x3 HENMT Head: Yes normocephalic Eyes General: appearance normal, both eyes and all related structures Neck Neck: Yes supple Resp Effort & Inspection: normal respiratory effort, no cough and no stridor Cardio Rhythm: regular rhythm Heart sounds: S1 normal heart sound present and S2 normal heart sound present Skin General skin exam: turgor normal Neuro General: patient oriented x3, tone normal and moves all extremities Extrem Right lower extremity: no edema Left lower extremity: no edema Assessment and Plan Assessment & Plan (1) Obesity (BMI 30.0-34.9): Code(s): E66.9 - Obesity, unspecified Plan Patient is 52-year-old female came in today to talk about Mounjaro injection for weight loss She was started on Ozempic 4 weeks ago she has lost 3 lb patient is insisting that she would like to try Mounjaro We talked about the side effect of increased risk of thyroid cancer, pancreatitis, kidney injury, gastric issues. Patient says that she knows all about it 1 of her cousin is taking the medication and she is willing to take the risk. Medications sent starting with 2.5 mg once a week patient is to return in 4 weeks for follow-up appointment We also talked about signs and symptoms of hypoglycemia in what to do if it happens. Medications: New tirzepatide (Mounjaro) 2.5 mg (0.5 mL) subcut QWEEK 2 mL 0RF 4 weeks Discontinued semaglutide for 4 weeks Discontinued Reason: Doctor's Order 0.25 mg (0.4 mL) subcut QWEEK 2 mL 0RF 30 days solifenacin 10 mg PO DAILY 90 days 90 tabs 1RF Coding Level of Care Code Est Pt Level 3 (17986) Diagnoses Obesity (BMI 30.0-34.9) E66.9
[2023-03-17 14:09] VITALS: BP 110/72; PULSE 93; O2SAT 95; BMI 33.3
== END 2023-03-17 14:38 | disposition home or self-care (01) ==
PROVIDERS: PCP Internal Medicine; Visit Provider Internal Medicine
DX: E66.9 Obesity, unspecified (principal); Z68.33 Body mass index [BMI] 33.0-33.9, adult
CPT/HCPCS: 99213

== ENCOUNTER 2023-04-16 12:00 | Outpatient (AMB) | payer OTHER, SELFPAY ==
[2023-04-16 12:01] VITALS: BP 110/74; PULSE 82; O2SAT 97; BMI 33.2
--- NOTE | 2023-04-16 12:01 | MHC.PC.OV ---
Vital Signs 04/16/23 12:01 Height 5 ft 4 in Weight 193 lb 6 oz BMI 33.2 BP 110/74 Blood Pressure Location Rt brachial Position Sitting Pulse 82 Pulse Source Pulse Oximeter Pulse Oximetry (%) 97 Oxygen Delivery Method Room Air Intake Visit Reasons: EP, 4 Week Follow Up Allergies mannitol [From ZOMETA] Allergy (Severe, Verified 04/16/23 12:01) DIFFICULTY SWALLOWING water for injection,sterile [From ZOMETA] Allergy (Severe, Verified 04/16/23 12:01) DIFFICULTY SWALLOWING zoledronic acid [From ZOMETA] Allergy (Severe, Verified 04/16/23 12:01) DIFFICULTY SWALLOWING latex [Latex] Allergy (Intermediate, Verified 04/16/23 12:01) RASH hydroxyzine [From VISTARIL] Allergy (Mild, Verified 04/16/23 12:01) SWELLING Medication List - Last Reconciled 04/16/23 by Venancio Aldana MD clonazepam 1 mg PO TID gabapentin 400 mg PO TID lamotrigine 100 mg PO DAILY semaglutide 1 mg (0.75 mL) subcut QWEEK 30 days solifenacin (Vesicare) 10 mg PO DAILY PRN Tobacco use date assessed: 04/16/23 Dental Screening Dental Screen Date: 04/16/23 Did you have a dental problem in the last 6 months where you did not have access to dental care?: No Was dental information given to patient?: No HPI EP, 4 Week Follow Up HPI Details Patient is complaining that she feels pain when she laid down on her either side at upper thigh area. On examination she is tender over trochanteric bursa bilateral. I have placed a referral for orthopedic for evaluation. Her weight is stable it is 1 lb less than last month patient is on semaglutide injection 0.5 mg I am increasing the does He is currently seeing psychiatrist patient have a diagnosis of bipolar disorder depression and anxiety She says that they have started to taper off clonazepam and she is scared. We will see how it goes psychiatrist has told the patient that if she needs this medication then she need to find a new psychiatrist. She is also on lamotrigine 100 mg And gabapentin 400 mg t.i.d.. Currently she is taking clonazepam 1 mg in the morning and 1 mg at night and half a tablet in the afternoon Patient is to return in 4 weeks for follow-up [facility] Medical History Anxiety Depression Surgical History History of tubal ligation Hx of section Hx of right breast biopsy Social History Housing: Apartment Are you a primary urgent care physician assistant to a significant other at home: No Do you presently have visiting nurse or other home services: No Alcohol intake: never Patient Tobacco Use Status: Never used Tobacco Tobacco use type: Cigarette Years Smoked: 8 years e-Cigarette/Vaping Use: Never Used service: No Current occupational status: disabled 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 How often do you have a drink containing alcohol?: Never 3. How often do you have six or more drinks on one occasion?: Never Total Score: 0 Score Reviewed/Action Taken: Yes EARLENE-7 AMB Questionnaire EARLENE-7 Date EARLENE - 7 assessed: 01/28/22 Source: Developed by Drs. Wiley Gonzalez, Alyssa Amaro, Skyler Chao and colleagues, with an educational ragini from [employer]. Review of Systems Const Denies chills and Denies fever(s) ENT Denies epistaxis and Denies nasal discharge Card Denies chest pain Resp Denies chest congestion, Denies cough and Denies hemoptysis GI Denies diarrhea and Denies nausea Skin/Breast Denies rash Neuro Reports no additional complaints Psych Reports no additional complaints Endo Reports no additional complaints Physical exam (Primary Care) Vital Signs: Last Vital Signs Pulse 82 04/16/23 12:01 BP 110/74 04/16/23 12:01 Pulse Ox 97 04/16/23 12:01 Oxygen Delivery Method Room Air 04/16/23 12:01 BMI result Body Mass Index 33.2 Tobacco/Smoking Status: Tobacco use Status Tobacco use date assessed 04/16/23 04/16/23 12:02 Patient Tobacco Use Status Never used Tobacco 04/16/23 12:02 Tobacco use type Cigarette 04/16/23 12:02 e-Cigarette/Vaping Use Never Used 04/16/23 12:02 Thrive Assessment: Date of Thrive Assessment Date Thrive assessed 01/28/22 04/16/23 12:02 Const General: cooperative, comfortable and no acute distress Orientation/consciousness: patient oriented x3 HENMT Head: Yes normocephalic Eyes General: appearance normal, both eyes and all related structures Neck Neck: Yes supple Resp Effort & Inspection: normal respiratory effort, no cough and no stridor Cardio Rhythm: regular rhythm Heart sounds: S1 normal heart sound present and S2 normal heart sound present Skin General skin exam: turgor normal Neuro General: patient oriented x3, tone normal and moves all extremities Extrem Right lower extremity: no edema Left lower extremity: no edema Assessment and Plan Assessment & Plan (1) Trochanteric bursitis of both hips: Code(s): M70.61 - Trochanteric bursitis, right hip; M70.62 - Trochanteric bursitis, left hip (2) Major depressive disorder, recurrent, severe w/o psychotic behavior: Code(s): F33.2 - Major depressive disorder, recurrent severe without psychotic features (3) Generalized anxiety disorder with panic attacks: Code(s): F41.1 - Generalized anxiety disorder; F41.0 - Panic disorder [episodic paroxysmal anxiety] (4) Obesity due to excess calories: Code(s): E66.09 - Other obesity due to excess calories Plan Patient is complaining that she feels pain when she laid down on her either side at upper thigh area. On examination she is tender over trochanteric bursa bilateral. I have placed a referral for orthopedic for evaluation. Her weight is stable it is 1 lb less than last month patient is on semaglutide injection 0.5 mg I am increasing the does He is currently seeing psychiatrist patient have a diagnosis of bipolar disorder depression and anxiety She says that they have started to taper off clonazepam and she is scared. We will see how it goes psychiatrist has told the patient that if she needs this medication then she need to find a new psychiatrist. She is also on lamotrigine 100 mg And gabapentin 400 mg t.i.d.. Currently she is taking clonazepam 1 mg in the morning and 1 mg at night and half a tablet in the afternoon Patient is to return in 4 weeks for follow-up Orders: Referrals Orthopedics Referral M70.61 - Trochanteric bursitis, right hip, M70.62 - Trochanteric bursitis, left hip Medications: Changed From semaglutide for 4 weeks 0.5 mg (0.736 mL) subcut QWEEK 30 days 4 mL 0RF To semaglutide for 4 weeks 1 mg (0.75 mL) subcut QWEEK 3.75 mL 0RF 30 days Discontinued solifenacin 10 mg PO DAILY 90 days 90 tabs 1RF Coding Level of Care Code Est Pt Level 3 (21376) Diagnoses Trochanteric bursitis of both hips M70.61; M70.62 Major depressive disorder, recurrent, severe w/o psychotic behavior F33.2 Generalized anxiety disorder with panic attacks F41.1; F41.0 Obesity due to excess calories E66.09
== END 2023-04-16 12:56 | disposition home or self-care (01) ==
PROVIDERS: PCP Internal Medicine; Visit Provider Internal Medicine
DX: M70.61 Trochanteric bursitis, right hip (principal); M70.62 Trochanteric bursitis, left hip; F33.2 Major depressive disorder, recurrent severe without psychotic features; Z68.33 Body mass index [BMI] 33.0-33.9, adult; F41.1 Generalized anxiety disorder; F41.0 Panic disorder [episodic paroxysmal anxiety]; E66.09 Other obesity due to excess calories
CPT/HCPCS: 99213

== ENCOUNTER 2023-04-27 05:00 | Outpatient (REF) | payer OTHER, SELFPAY ==
--- NOTE | ~2023-04-27 | XR_ITS ---
EXAMINATION: BILATERAL HIPS CLINICAL INFORMATION: Left and right hips pain COMPARISON: None. TECHNIQUE: AP supine neutral and frog-leg lateral views of both hips are provided. FINDINGS: The appearance of the capital femoral epiphyses is symmetric. Both femoral heads are seated within well formed acetabula. The acetabular indices are normal bilaterally. Shenton's lines are intact. Normal mineralization is present. No subluxation is demonstrable on the frog-leg lateral projection. XR/XR hip RT min 2V IMPRESSION: Unremarkable bilateral hip radiographs.
--- NOTE | ~2023-04-27 | XR_ITS ---
EXAMINATION: BILATERAL HIPS CLINICAL INFORMATION: Left and right hips pain COMPARISON: None. TECHNIQUE: AP supine neutral and frog-leg lateral views of both hips are provided. FINDINGS: The appearance of the capital femoral epiphyses is symmetric. Both femoral heads are seated within well formed acetabula. The acetabular indices are normal bilaterally. Shenton's lines are intact. Normal mineralization is present. No subluxation is demonstrable on the frog-leg lateral projection. XR/XR hip LT 1V IMPRESSION: Unremarkable bilateral hip radiographs.
== END 2023-04-27 05:01 | disposition home or self-care (01) ==
LOC: HO.HOSX 05:00
PROVIDERS: Visit Provider Orthopaedic Surgery
DX: M54.50 Low back pain, unspecified (principal); M25.551 Pain in right hip; M25.552 Pain in left hip
CPT/HCPCS: 73501; 73502; 99212

== ENCOUNTER 2023-04-27 08:45 | Outpatient (AMB) | payer OTHER, SELFPAY ==
--- NOTE | 2023-04-27 08:53 | A.OFFVIS_ITS ---
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 Her symptoms have gotten worse over the last few years in spite of continued non operative treatments. She has done physical therapy for 12 weeks over the last 6 months which aggravated her pain. The patient also reports intermittent weakness in both of her legs. She denies any fevers or chills. She has tried Tylenol and anti- inflammatory medicines which gave her minimal relief. Allergies mannitol [From ZOMETA] Allergy (Severe, Verified 04/27/23 09:02) DIFFICULTY SWALLOWING water for injection,sterile [From ZOMETA] Allergy (Severe, Verified 04/27/23 09:02) DIFFICULTY SWALLOWING zoledronic acid [From ZOMETA] Allergy (Severe, Verified 04/27/23 09:02) DIFFICULTY SWALLOWING latex [Latex] Allergy (Intermediate, Verified 04/27/23 09:02) RASH hydroxyzine [From VISTARIL] Allergy (Mild, Verified 04/27/23 09:02) SWELLING Medication List - Last Reconciled 04/27/23 by Raphael Lemos MD clonazepam 1 mg PO TID gabapentin 400 mg PO TID lamotrigine 100 mg PO DAILY methylprednisolone (Medrol (Dejon)) PO PER PKG DIR semaglutide 1 mg (0.75 mL) subcut QWEEK 30 days solifenacin (Vesicare) 10 mg PO DAILY PRN PFSH Medical History Anxiety Depression Surgical History History of tubal ligation Hx of section Hx of right breast biopsy Social History Housing: Apartment Are you a primary personal care aide to a significant other at home: No Do you presently have visiting nurse or other home services: No Alcohol intake: never Patient Tobacco Use Status: Never used Tobacco Tobacco use type: Cigarette Years Smoked: 8 years e-Cigarette/Vaping Use: Never Used service: No Current occupational status: disabled 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 Cognitive needs: No Hearing needs: No Vision needs: No Female Reproductive History Menstrual Age of Menarche: 12 Physical Exam Const Other: Well-nourished well-developed very friendly female awake alert and oriented x3 in no acute distress Back/Spine/Pelvis Other: Low back examination shows bilateral paraspinal muscle tenderness, pain with range of motion, positive straight leg raise test bilaterally at 70 degrees, 4/5 strength with her bilateral hip flexors and knee extensors Extrem Other: Bilateral hip examination shows minimal discomfort with range of motion, mild tenderness over both of her bursa, no overlying skin lesions Results Reviewed Results Reviewed: X-rays of the patient's bilateral hips taken today show mild diffuse joint space narrowing, no acute bony abnormalities Assessment & Plan Assessment & Plan (1) Low back pain radiating down leg: Code(s): M54.50 - Low back pain, unspecified; M79.606 - Pain in leg, unspecified Plan: Ms. Bauman presents with progressively worsening low back pain which radiates down both her legs as well as associated bilateral leg weakness possibly due to a disc herniation or lumbar stenosis. Thus, I will send the patient for an MRI of her lumbar spine for further evaluation. I will contact her by phone once the MRI results are available. If she does have significant stenosis or disc herniation I will refer her to a back specialist. I did give her a prescription for a Medrol Dosepak to help with her symptoms in the meantime. The patient also has bilateral hip discomfort most likely due to greater trochanteric bursitis. We will hold off on a cortisone injection at this time. Feel free to call me at any time should questions regarding her orthopedic management arise. Thank you very much for asking to see this very friendly patient. I spent 22 minutes in reviewing the patient's records and imaging studies, seeing the patient and documenting in the medical record. (2) Left hip pain: Code(s): M25.552 - Pain in left hip (3) Right hip pain: Code(s): M25.551 - Pain in right hip Orders: Orders XR hip LT 1V Today M25.552 - Pain in left hip XR hip RT min 2V Today M25.551 - Pain in right hip MR lumbar spine wo con Today M25.551 - Pain in right hip, M25.552 - Pain in left hip, M54.50 - Low back pain, unspecified, M79.606 - Pain in leg, unspecified Medications: New methylprednisolone (Medrol (Dejon)) PO PER PKG DIR 21 ea 0RF Discontinued solifenacin 10 mg PO DAILY 90 days 90 tabs 1RF Coding Level of Care Code Est Pt Level 2 (80092) Diagnoses Low back pain radiating down leg M54.50; M79.606 Left hip pain M25.552 Right hip pain M25.551
== END 2023-04-27 09:19 | disposition home or self-care (01) ==
PROVIDERS: PCP Internal Medicine; Visit Provider Orthopaedic Surgery
DX: M54.50 Low back pain, unspecified (principal); M79.606 Pain in leg, unspecified; M25.552 Pain in left hip; M25.551 Pain in right hip
CPT/HCPCS: 99212

== ENCOUNTER → 2023-05-12 13:16 | Outpatient (BNVA) | payer OTHER, SELFPAY | PROVIDERS: PCP Internal Medicine; Visit Provider Physician Assistant ==

== ENCOUNTER 2023-05-18 13:22 | Outpatient (AMB) | payer OTHER, SELFPAY ==
--- NOTE | 2023-05-18 10:36 | MHC.PC.OV ---
Intake Visit Reasons: Follow Up ~ Allergies mannitol [From ZOMETA] Allergy (Severe, Verified 05/18/23 10:37) DIFFICULTY SWALLOWING water for injection,sterile [From ZOMETA] Allergy (Severe, Verified 05/18/23 10:37) DIFFICULTY SWALLOWING zoledronic acid [From ZOMETA] Allergy (Severe, Verified 05/18/23 10:37) DIFFICULTY SWALLOWING latex [Latex] Allergy (Intermediate, Verified 05/18/23 10:37) RASH hydroxyzine [From VISTARIL] Allergy (Mild, Verified 05/18/23 10:37) SWELLING Medication List - Last Reconciled 05/18/23 by Venancio Aldana MD bisacodyl (Dulcolax (bisacodyl)) 20 mg (4 x 5 mg) PO ONCE 1 day clonazepam 1 mg PO TID gabapentin 400 mg PO TID lamotrigine 100 mg PO DAILY polyethylene glycol 3350 (Miralax) 238 grams PO ONCE PRN 1 day semaglutide 1 mg (0.75 mL) subcut QWEEK 30 days solifenacin (Vesicare) 10 mg PO DAILY PRN Tobacco use date assessed: 05/18/23 Dental Screening Dental Screen Date: 05/18/23 Did you have a dental visit in the last 12 months?: Yes Did you have a dental problem in the last 6 months where you did not have access to dental care?: No Was dental information given to patient?: Patient has dentist HPI Follow Up ~ HPI Details Patient is 53-year-old female this is a monthly appointment for weight check Patient is on Semaglutide injections She had a gastroenterology appointment 12 of May and her weight was 188. Patient is tolerating injections and is gradually losing weight. She offer no side effects or any other complaints. 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 How often do you have a drink containing alcohol?: Never 3. How often do you have six or more drinks on one occasion?: Never Total Score: 0 Score Reviewed/Action Taken: Yes EARLENE-7 AMB Questionnaire EARLENE-7 Date EARLENE - 7 assessed: 01/28/22 Source: Developed by Drs. Wiley Gonzalez, Alyssa Amaro, Skyler Chao and colleagues, with an educational ragini from [employer]. Review of Systems Const Denies chills and Denies fever(s) ENT Denies epistaxis and Denies nasal discharge Card Denies chest pain Resp Denies chest congestion, Denies cough and Denies hemoptysis GI Denies diarrhea and Denies nausea Skin/Breast Denies rash Neuro Reports no additional complaints Psych Reports no additional complaints Endo Reports no additional complaints Physical exam (Primary Care) Tobacco/Smoking Status: Tobacco use Status Tobacco use date assessed 05/18/23 05/18/23 10:37 Patient Tobacco Use Status Never used Tobacco 05/18/23 10:37 Tobacco use type Cigarette 05/18/23 10:37 e-Cigarette/Vaping Use Never Used 05/18/23 10:37 Thrive Assessment: Date of Thrive Assessment Date Thrive assessed 01/28/22 05/18/23 10:37 Telehealth Telehealth Location of provider rendering services: practice address Location of patient: address on file Patient Identification confirmed using: Name, : Yes Telehealth method: video Patient verbally consented to treatment: Yes Patient verbally consented to billing insurance company: Yes Patient informed of any privacy concerns related to visit: Yes Minutes spent on Phone/Video with Pt.: 13 Assessment and Plan Assessment & Plan (1) Obesity due to excess calories: Code(s): E66.09 - Other obesity due to excess calories Qualifiers: Obesity classification: adult class 1 (BMI 30 - 34.9) Serious obesity comorbidity presence: without serious comorbidity Body mass index: BMI 32.0-32.9 Qualified Code(s): E66.09 - Other obesity due to excess calories; Z68.32 - Body mass index [BMI] 32.0-32.9, adult Plan Patient is 53-year-old female this is a monthly appointment for weight check Patient is on Semaglutide injections She had a gastroenterology appointment 12 of May and her weight was 188. Patient is tolerating injections and is gradually losing weight. She offer no side effects or any other complaints. Coding Level of Care Code Tele Est Pt Level 3 (74256) Diagnoses Class 1 obesity due to excess calories without serious comorbidity with body mass index (BMI) of 32.0 to 32.9 in adult E66.09; Z68.32 Obesity classification: adult class 1 (BMI 30 - 34.9) Serious obesity comorbidity presence: without serious comorbidity Body mass index: BMI 32.0-32.9
== END 2023-05-18 14:45 | disposition home or self-care (01) ==
PROVIDERS: PCP Internal Medicine; Visit Provider Internal Medicine
DX: E66.09 Other obesity due to excess calories (principal); Z68.32 Body mass index [BMI] 32.0-32.9, adult
CPT/HCPCS: 99213

== ENCOUNTER 2023-06-23 13:37 | Outpatient (AMB) | payer OTHER, SELFPAY ==
--- NOTE | 2023-06-23 13:40 | MHC.PC.OV ---
Vital Signs 06/23/23 13:45 Height 5 ft 4 in Weight 185 lb 8 oz BMI 31.8 BP 122/72 Blood Pressure Location Lt brachial Position Sitting Pulse 92 Pulse Source Pulse Oximeter Pulse Oximetry (%) 90 L Oxygen Delivery Method Room Air Intake Visit Reasons: Med Follow Up~ Allergies mannitol [From ZOMETA] Allergy (Severe, Verified 06/23/23 13:40) DIFFICULTY SWALLOWING water for injection,sterile [From ZOMETA] Allergy (Severe, Verified 06/23/23 13:40) DIFFICULTY SWALLOWING zoledronic acid [From ZOMETA] Allergy (Severe, Verified 06/23/23 13:40) DIFFICULTY SWALLOWING latex [Latex] Allergy (Intermediate, Verified 06/23/23 13:40) RASH hydroxyzine [From VISTARIL] Allergy (Mild, Verified 06/23/23 13:40) SWELLING Medication List - Last Reconciled 06/23/23 by Venancio Aldana MD bisacodyl (Dulcolax (bisacodyl)) 20 mg (4 x 5 mg) PO ONCE 1 day clonazepam 1 mg PO TID gabapentin 400 mg PO TID lamotrigine 100 mg PO DAILY polyethylene glycol 3350 (Miralax) 238 grams PO ONCE PRN 1 day semaglutide 1 mg (0.75 mL) subcut QWEEK 30 days solifenacin (Vesicare) 10 mg PO DAILY PRN Tobacco use date assessed: 06/23/23 Dental Screening Dental Screen Date: 06/23/23 Did you have a dental visit in the last 12 months?: Yes Did you have a dental problem in the last 6 months where you did not have access to dental care?: No Was dental information given to patient?: Patient has dentist HPI Med Follow Up~ HPI Details Patient came in today to have a follow-up on obesity She is currently on semaglutide 1 mg injections weekly Patient is doing well tolerating medication and has lost weight She is requesting to go up on the dose. Which I have She is also requesting a script for well acyclovir for cold sores which I have sent with the patient She has appointment in August for follow-up PFSH Medical History Depression Anxiety Surgical History History of tubal ligation Hx of right breast biopsy Hx of section Social History Housing: Apartment Are you a primary hospice patient care secretary to a significant other at home: No Do you presently have visiting nurse or other home services: No Alcohol intake: never Patient Tobacco Use Status: Never used Tobacco Tobacco use type: Cigarette Years Smoked: 8 years e-Cigarette/Vaping Use: Never Used service: No Current occupational status: disabled 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 1. Little interest or pleasure in doing things: nearly every day 2. Feeling down, depressed, or hopeless: nearly every day 3. Trouble falling or staying asleep, or sleeping too much: nearly every day 4. Feeling tired or having little energy: nearly every day 5. Poor appetite or overeating: more than half the days 6. Feeling bad about yourself - or that you are a failure or have let yourself or your family down: nearly every day 7. Trouble concentrating on things, such as reading the newspaper or watching television: nearly every day 8. Moving or speaking so slowly that other people could have noticed. Or the opposite - being so fidgety or restless that you have been moving around a lot more than usual: several days 9. Thoughts that you would be better off or of hurting yourself in some way: more than half the days Total score: 23 Depression Screening Interpretation: Positive Depression Screening Follow-up: Existing condition and In treatment Depression Screening Done: Yes 12512 - PHQ-9 Billing: Yes Source: Developed by Drs. Wiley Gonzalez, Alyssa Amaro, Skyler Chao and colleagues, with an educational ragini from [employer]. Thrive Questionnaire Date Thrive assessed: 01/28/22 EARLENE-7 AMB Questionnaire EARLENE-7 Date EARLENE - 7 assessed: 01/28/22 Source: Developed by Drs. Wiley Gonzalez, Alyssa Amaro, Skyler Chao and colleagues, with an educational ragini from [employer]. Review of Systems Const Denies chills and Denies fever(s) ENT Denies epistaxis and Denies nasal discharge Card Denies chest pain Resp Denies chest congestion, Denies cough and Denies hemoptysis GI Denies diarrhea and Denies nausea Skin/Breast Denies rash Neuro Reports no additional complaints Psych Reports no additional complaints Endo Reports no additional complaints Physical exam (Primary Care) Vital Signs: Last Vital Signs Pulse 92 06/23/23 13:45 BP 122/72 06/23/23 13:45 Pulse Ox 90 L 06/23/23 13:45 Oxygen Delivery Method Room Air 06/23/23 13:45 BMI result Body Mass Index 31.8 Tobacco/Smoking Status: Tobacco use Status Tobacco use date assessed 06/23/23 06/23/23 13:42 Patient Tobacco Use Status Never used Tobacco 06/23/23 13:42 Tobacco use type Cigarette 06/23/23 13:42 e-Cigarette/Vaping Use Never Used 06/23/23 13:42 Depression Screening Interpretation: Positive Depression Screening Follow-up: Existing condition and In treatment Thrive Assessment: Date of Thrive Assessment Date Thrive assessed 01/28/22 06/23/23 13:42 Const General: cooperative, comfortable and no acute distress Orientation/consciousness: patient oriented x3 HENMT Head: Yes normocephalic Eyes General: appearance normal, both eyes and all related structures Neck Neck: Yes supple Resp Effort & Inspection: normal respiratory effort, no cough and no stridor Cardio Rhythm: regular rhythm Heart sounds: S1 normal heart sound present and S2 normal heart sound present Skin General skin exam: turgor normal Neuro General: patient oriented x3, tone normal and moves all extremities Extrem Right lower extremity: no edema Left lower extremity: no edema Assessment and Plan Assessment & Plan (1) Obesity due to excess calories: Code(s): E66.09 - Other obesity due to excess calories Qualifiers: Obesity classification: adult class 1 (BMI 30 - 34.9) Serious obesity comorbidity presence: without serious comorbidity Body mass index: BMI 32.0-32.9 Qualified Code(s): E66.09 - Other obesity due to excess calories; Z68.32 - Body mass index [BMI] 32.0-32.9, adult (2) Recurrent cold sores: Code(s): B00.1 - Herpesviral vesicular dermatitis Plan Patient came in today to have a follow-up on obesity She is currently on semaglutide 1 mg injections weekly Patient is doing well tolerating medication and has lost weight She is requesting to go up on the dose. Which I have She is also requesting a script for well acyclovir for cold sores which I have sent with the patient She has appointment in August for follow-up Medications: New valacyclovir 500 mg PO DAILY 30 tabs 0RF Changed From semaglutide for 4 weeks 1 mg (0.75 mL) subcut QWEEK 30 days 3.75 mL 0RF To semaglutide for 4 weeks 2 mg (0.75 mL) subcut QWEEK 30 days 3.75 mL 1RF Coding Level of Care Code Est Pt Level 3 (93528) Diagnoses Class 1 obesity due to excess calories without serious comorbidity with body mass index (BMI) of 32.0 to 32.9 in adult E66.09; Z68.32 Obesity classification: adult class 1 (BMI 30 - 34.9) Serious obesity comorbidity presence: without serious comorbidity Body mass index: BMI 32.0-32.9 Recurrent cold sores B00.1
[2023-06-23 13:45] VITALS: BP 122/72; PULSE 92; O2SAT 90; BMI 31.8
== END 2023-06-23 14:31 | disposition home or self-care (01) ==
PROVIDERS: PCP Internal Medicine; Visit Provider Internal Medicine
DX: E66.09 Other obesity due to excess calories (principal); Z68.32 Body mass index [BMI] 32.0-32.9, adult; B00.1 Herpesviral vesicular dermatitis
CPT/HCPCS: 99213

== ENCOUNTER 2023-07-12 17:13 | Outpatient (REF) | payer OTHER, SELFPAY ==
--- NOTE | ~2023-07-12 | MR_ITS ---
EXAMINATION: MR LUMBAR SPINE WITHOUT CONTRAST CLINICAL INFORMATION: Low back pain COMPARISON: None available. TECHNIQUE: MRI of the lumbar spine was obtained using routine sequences without contrast. FINDINGS: Mild levocurvature of the lumbar spine. No listhesis. No abnormal bone marrow signal. The vertebral body heights are preserved. The disc spaces are also preserved. The visualized spinal cord is normal in caliber. No abnormal cord signal. The conus medullaris terminates at L1-2. T12-L1: No significant spinal canal or neural foraminal narrowing. L1-2: No significant spinal canal or neural foraminal narrowing. L2-3: No significant spinal canal or neural foraminal narrowing. L3-4: No significant spinal canal or neural foraminal narrowing. L4-5: Diffuse disc bulge and bilateral facet arthrosis. No significant spinal canal stenosis. Mild right neural foraminal narrowing with the disc abutting the exiting L4 nerve roots bilaterally. L5-S1: Diffuse disc bulge and bilateral facet arthrosis. No significant spinal canal stenosis. Mild left greater than right neural foraminal narrowing with the disc abutting the L5 nerve roots bilaterally. The paravertebral soft tissues are unremarkable. MR/MR lumbar spine wo con IMPRESSION: Mild degenerative changes of the lower lumbar spine at L4-L5 and L5-S1. Mild bilateral neural foraminal narrowing with the disc abutting the exiting L4 and L5 nerve roots bilaterally. No significant spinal canal stenosis.
== END 2023-07-12 17:14 | disposition home or self-care (01) ==
LOC: HO.MRI 17:13
PROVIDERS: PCP Internal Medicine; Visit Provider Orthopaedic Surgery
DX: M54.50 Low back pain, unspecified (principal); M25.552 Pain in left hip; M25.551 Pain in right hip
CPT/HCPCS: 72148

== ENCOUNTER 2023-08-17 12:41 | Outpatient (AMB) | payer OTHER, SELFPAY ==
[2023-08-17 12:44] VITALS: BP 112/66; PULSE 93; O2SAT 92; BMI 32.3
--- NOTE | 2023-08-17 12:44 | A.OFFPC_ITS ---
Vital Signs 08/17/23 12:44 Height 5 ft 4 in Weight 188 lb BMI 32.3 BP 112/66 Blood Pressure Location Lt brachial Position Sitting Pulse 93 Pulse Source Pulse Oximeter Pulse Oximetry (%) 92 Oxygen Delivery Method Room Air Intake Visit Reasons: 6m follow up anxiety Allergies mannitol [From ZOMETA] Allergy (Severe, Verified 08/17/23 12:48) DIFFICULTY SWALLOWING water for injection,sterile [From ZOMETA] Allergy (Severe, Verified 08/17/23 12:48) DIFFICULTY SWALLOWING zoledronic acid [From ZOMETA] Allergy (Severe, Verified 08/17/23 12:48) DIFFICULTY SWALLOWING latex [Latex] Allergy (Intermediate, Verified 08/17/23 12:48) RASH hydroxyzine [From VISTARIL] Allergy (Mild, Verified 08/17/23 12:48) SWELLING Medication List - Last Reconciled 08/17/23 by Venancio Aldana MD bisacodyl (Dulcolax (bisacodyl)) 20 mg (4 x 5 mg) PO ONCE 1 day clonazepam 1 mg PO TID gabapentin 400 mg PO TID lamotrigine 100 mg PO DAILY polyethylene glycol 3350 (Miralax) 238 grams PO ONCE PRN 1 day semaglutide 1 mg (0.75 mL) subcut QWEEK solifenacin (Vesicare) 10 mg PO DAILY PRN valacyclovir 500 mg PO DAILY 90 days Tobacco use date assessed: 08/17/23 Dental Screening Dental Screen Date: 08/17/23 Did you have a dental visit in the last 12 months?: Yes Did you have a dental problem in the last 6 months where you did not have access to dental care?: No Was dental information given to patient?: Patient has dentist HPI 6m follow up anxiety HPI Details Patient continued to have lower back pain radiating to both legs especially worse at night She had MRI done July 12 which showed Mild degenerative changes of the lower lumbar spine at L4-L5 and L5-S1. Mild bilateral neural foraminal narrowing with the disc abutting the exiting L4 and L5 nerve roots bilaterally. No significant spinal canal stenosis. Patient would like to have visit with Neurosurgery to talk about her options. Patient says that the pain is affecting her daily life. She is also taking Semaglutide injections to lose weight so far she has had no luck, patient says that there was a problem feeling the medication through pharmacy and she could not get it for a month She would like to continue that. I have ordered labs for the patient to be done today we will be monitoring thyroid functions as well as metabolic profile. She is to return in 3 months for follow-up Patient continued to be severely depressed she is seeing therapist every week and psychiatrist once a month. 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 1. Little interest or pleasure in doing things: several days 2. Feeling down, depressed, or hopeless: several days 3. Trouble falling or staying asleep, or sleeping too much: several days 4. Feeling tired or having little energy: more than half the days 5. Poor appetite or overeating: several days 6. Feeling bad about yourself - or that you are a failure or have let yourself or your family down: more than half the days 7. Trouble concentrating on things, such as reading the newspaper or watching television: nearly every day 8. Moving or speaking so slowly that other people could have noticed. Or the opposite - being so fidgety or restless that you have been moving around a lot m ore than usual: not at all 9. Thoughts that you would be better off or of hurting yourself in some way: several days Total score: 12 Depression Screening Interpretation: Positive Depression Screening Done: Yes 02274 - PHQ-9 Billing: Yes Source: Developed by Drs. Wiley Gonzalez, Alyssa Amaro, Skyler Chao and colleagues, with an educational ragini from [employer]. Thrive Questionnaire Date Thrive assessed: 08/17/23 I am a: Patient What is your living situation today?: I have a steady place to live Within the past 12 months, did the food you bought not last and you didn't have the money to get more?: Never true Within the past 12 months, did you worry whether your food would run out before you got money to buy more?: Never true Do you have trouble paying for medicines?: No Do you have trouble getting transportation to medical appointments?: No Do you have trouble paying your heating and electricity bill?: No Do you have trouble taking care of your child, family member or friend?: No Do you have trouble with day-to-day activities such as bathing, preparing meals, shopping, managing finances, etc.?: No Are you currently unemployed and looking for a job?: No Are you interested in more education?: No Please select the resources that you would like help with: None Currently or been in a relationship where the following occur: no concerns reported AUDIT C Alcohol Use Questionnaire (AUDIT-C) 1. How often do you have a drink containing alcohol?: Never 3. How often do you have six or more drinks on one occasion?: Never Total Score: 0 Score Reviewed/Action Taken: Yes EARLENE-7 AMB Questionnaire EARLENE-7 Date EARLENE - 7 assessed: 08/17/23 Feeling nervous, anxious, or on edge: 2 = More than half the days Not being able to stop or control worryin = More than half the days Worrying too much about different things: 2 = More than half the days Trouble relaxin = More than half the days Being so restless that it is hard to sit still: 1 = Several days Becoming easily annoyed or irritable: 2 = More than half the days Feeling afraid as if something awful might happen: 1 = Several days Total EARLENE-7 score (0-4 normal; 5-9 mild; 10-14 moderate; 15-21 severe): 12 Source: Developed by Drs. Wiley Gonzalez, Alyssa Amaro, Skyler Chao and colleagues, with an educational ragini from [employer]. EARLENE-7 Assessment Billing EARLENE-7 Assessment Tool: EARLENE-7 Assessment 54377 Review of Systems Const Denies chills and Denies fever(s) ENT Denies epistaxis and Denies nasal discharge Card Denies chest pain Resp Denies chest congestion, Denies cough and Denies hemoptysis GI Denies diarrhea and Denies nausea Skin/Breast Denies rash Neuro Reports no additional complaints Psych Reports no additional complaints Endo Reports no additional complaints Physical exam (Primary Care) Vital Signs: Last Vital Signs Pulse 93 08/17/23 12:44 BP 112/66 08/17/23 12:44 Pulse Ox 92 08/17/23 12:44 Oxygen Delivery Method Room Air 08/17/23 12:44 BMI result Body Mass Index 32.3 Tobacco/Smoking Status: Tobacco use Status Tobacco use date assessed 08/17/23 08/17/23 12:48 Patient Tobacco Use Status Never used Tobacco 08/17/23 12:48 Tobacco use type Cigarette 08/17/23 12:48 e-Cigarette/Vaping Use Never Used 08/17/23 12:48 PHQ-9: PHQ-9 Score PHQ-9: Total score 12 08/17/23 13:10 Depression Screening Interpretation: Positive Thrive Assessment: Date of Thrive Assessment Date Thrive assessed 08/17/23 08/17/23 12:55 Currently or been in a relationship where the following occur: no concerns reported Const General: cooperative, comfortable and no acute distress Orientation/consciousness: patient oriented x3 HENIN Head: Yes normocephalic Eyes General: appearance normal, both eyes and all related structures Neck Neck: Yes supple Resp Effort & Inspection: normal respiratory effort, no cough and no stridor Cardio Rhythm: regular rhythm Heart sounds: S1 normal heart sound present and S2 normal heart sound present Skin General skin exam: turgor normal Neuro General: patient oriented x3, tone normal and moves all extremities Extrem Right lower extremity: no edema Left lower extremity: no edema Assessment and Plan Assessment & Plan (1) Lumbar back pain with radiculopathy affecting lower extremity: Code(s): M54.16 - Radiculopathy, lumbar region (2) Low back pain radiating down leg: Code(s): M54.50 - Low back pain, unspecified; M79.606 - Pain in leg, unspecified (3) Major depressive disorder, recurrent, severe w/o psychotic behavior: Code(s): F33.2 - Major depressive disorder, recurrent severe without psychotic features (4) Obesity due to excess calories: Code(s): E66.09 - Other obesity due to excess calories Qualifiers: Body mass index: BMI 32.0-32.9 Obesity classification: adult class 1 (BMI 30 - 34.9) Serious obesity comorbidity presence: without serious comorbidity Qualified Code(s): E66.09 - Other obesity due to excess calories; Z68.32 - Body mass index [BMI] 32.0-32.9, adult (5) Impaired fasting blood sugar: Code(s): R73.01 - Impaired fasting glucose (6) LFT elevation: Code(s): R79.89 - Other specified abnormal findings of blood chemistry (7) Lumbar disc disease: Code(s): M51.9 - Unspecified thoracic, thoracolumbar and lumbosacral intervertebral disc disorder (8) Abnormal MRI, lumbar spine: Code(s): R93.7 - Abnormal findings on diagnostic imaging of other parts of musculoskeletal system Plan Patient continued to have lower back pain radiating to both legs especially worse at night She had MRI done July 12 which showed Mild degenerative changes of the lower lumbar spine at L4-L5 and L5-S1. Mild bilateral neural foraminal narrowing with the disc abutting the exiting L4 and L5 nerve roots bilaterally. No significant spinal canal stenosis. Patient would like to have visit with Neurosurgery to talk about her options. Patient says that the pain is affecting her daily life. She is also taking Semaglutide injections to lose weight so far she has had no luck, patient says that there was a problem feeling the medication through pharmacy and she could not get it for a month She would like to continue that. I have ordered labs for the patient to be done today we will be monitoring thyroid functions as well as metabolic profile. She is to return in 3 months for follow-up Patient continued to be severely depressed she is seeing therapist every week and psychiatrist once a month. Orders: Orders Complete Blood Count Auto Diff Today E66.09 - Other obesity due to excess calories, F33.2 - Major depressive disorder, recurrent severe without psychotic features, M54.50 - Low back pain, unspecified, M79.606 - Pain in leg, unspecified, R73.01 - Impaired fasting glucose, R79.89 - Other specified a bnormal findings of blood chemistry TSH reflex Free T4 Today E66.09 - Other obesity due to excess calories, F33.2 - Major depressive disorder, recurrent severe without psychotic features, M54.50 - Low back pain, unspecified, M79.606 - Pain in leg, unspecified, R73.01 - Impaired fasting glucose, R79.89 - Other specified abnormal findings of blood chemistry Comprehensive Met. Panel Today E66.09 - Other obesity due to excess calories, F33.2 - Major depressive disorder, recurrent severe without psychotic features, M54.50 - Low back pain, unspecified, M79.606 - Pain in leg, unspecified, R73.01 - Impaired fasting glucose, R79.89 - Other specified abnormal findings of blood chemistry Referrals Neurosurgery Referral M51.9 - Unspecified thoracic, thoracolumbar and lumbosacral intervertebral disc disorder, M54.16 - Radiculopathy, lumbar region, R93.7 - Abnormal findings on diagnostic imaging of other parts of musculoskeletal system Coding Level of Care Code Est Pt Level 4 (95436) Diagnoses Lumbar back pain with radiculopathy affecting lower extremity M54.16 Low back pain radiating down leg M54.50; M79.606 Major depressive disorder, recurrent, severe w/o psychotic behavior F33.2 Class 1 obesity due to excess calories without serious comorbidity with body mass index (BMI) of 32.0 to 32.9 in adult E66.09; Z68.32 Body mass index: BMI 32.0-32.9 Obesity classification: adult class 1 (BMI 30 - 34.9) Serious obesity comorbidity presence: without serious comorbidity Impaired fasting blood sugar R73.01 LFT elevation R79.89 Lumbar disc disease M51.9 Abnormal MRI, lumbar spine R93.7 Additional Codes EARLENE-7 Assessment Billing - EARLENE-7 Assessment Tool: EARLENE-7 Assessment 88412 ([id number])
== END 2023-08-17 14:07 | disposition home or self-care (01) ==
PROVIDERS: PCP Internal Medicine; Visit Provider Internal Medicine
DX: M54.16 Radiculopathy, lumbar region (principal); M54.50 Low back pain, unspecified; M79.606 Pain in leg, unspecified; F33.2 Major depressive disorder, recurrent severe without psychotic features; E66.09 Other obesity due to excess calories; Z68.32 Body mass index [BMI] 32.0-32.9, adult; R73.01 Impaired fasting glucose; R79.89 Other specified abnormal findings of blood chemistry; M51.9 Unspecified thoracic, thoracolumbar and lumbosacral intervertebral disc disorder; R93.7 Abnormal findings on diagnostic imaging of other parts of musculoskeletal system
CPT/HCPCS: 99214

== ENCOUNTER 2023-08-17 13:05 | Outpatient (REF) | payer OTHER, SELFPAY ==
[2023-08-17 16:10] LABS: MANUAL DIFF FLAG NO
[2023-08-17 16:24] LABS: Basophils Percent Auto 0.6 % (0-2); Eosinophils Absolute Auto 0.3 X10*3/uL (0.0-0.4); Eosinophils Percent Auto 4.7 % (0-4); Hematocrit 42.1 % (37.0-47.0); Hemoglobin 13.5 g/dl (12.0-16.0); Imm Gran Abs Auto 0.02 X10*3/uL (0.00-0.03); Imm Gran Pct Auto 0.3 % (0.0-0.4); Lymphocytes Absolute Auto 2.3 X10*3/uL (1.2-4.9); Mean Corpuscular HGB Conc 32.1 g/dl (31.0-35.0); Mean Corpuscular Hemoglobin 29.1 pg (27.0-33.0); Mean Corpuscular Volume 90.7 fL (80.0-98.0); Mean Platelet Volume 9.6 fL (9.4-12.3); Monocytes Absolute Auto 0.4 X10*3/uL (0.1-1.2); Monocytes Percent Auto 5.4 % (2-11); Neutrophils Absolute Auto 4.1 x10*3/uL (2.0-8.3); Platelet Count 261 X10*3/uL (160-400); Red Blood Count 4.64 X10*6/uL (4.20-5.50); Red Cell Distribution Width 12.4 % (11.0-16.0); White Blood Count 7.2 X10*3/uL (4.8-10.8)
[2023-08-17 16:44] LABS: Alanine Aminotransferase 7 U/L (0-31); Albumin Level 4.1 g/dL (3.5-5.0); Alkaline Phosphatase 102 U/L (39-117); Anion Gap 12 (12-20); Aspartate Amino Transferase 15 U/L (5-31); Bilirubin Total 0.2 mg/dL (0.0-1.0); Blood Urea Nitrogen 12 mg/dL (9-16); Calcium 9.4 mg/dL (8.4-10.2); Carbon Dioxide 31 mmol/L (22-29); Chloride 106 mmol/L (96-108); Estimated Glomerular Filt Rate > 60; Glucose Random 95 mg/dL (60-115); Potassium 3.8 mmol/L (3.3-5.1); Sodium 145 mmol/L (135-145); Total Protein 7.2 g/dL (6.5-8.0)
[2023-08-17 16:54] LABS: TSH reflex Free T4 0.56 uIU/mL (0.32-4.0)
== END 2023-08-17 13:06 | disposition home or self-care (01) ==
LOC: HO.HMGCLDS 13:05
PROVIDERS: PCP Internal Medicine; Visit Provider Internal Medicine
DX: M54.50 Low back pain, unspecified (principal); M79.606 Pain in leg, unspecified; E66.09 Other obesity due to excess calories; R73.01 Impaired fasting glucose; R79.89 Other specified abnormal findings of blood chemistry; F33.2 Major depressive disorder, recurrent severe without psychotic features
CPT/HCPCS: 36415; 80053; 84443; 85025

== ENCOUNTER → 2023-09-10 11:50 | Outpatient (BNVA) | payer OTHER, SELFPAY | PROVIDERS: PCP Internal Medicine; Visit Provider Orthopaedic Surgery ==

== ENCOUNTER 2023-09-17 10:00 | Outpatient (AMB) | payer OTHER, SELFPAY ==
--- NOTE | 2023-09-17 10:17 | A.SPINEOV_ITS ---
Intake Intake Visit Reasons: low back pain Intake Note: Ms. Bauman is here today c/o low back pain. MRI done @ [facility] [place] [employer] Technician Required: No Allergies mannitol [From ZOMETA] Allergy (Severe, Verified 09/10/23 12:12) DIFFICULTY SWALLOWING water for injection,sterile [From ZOMETA] Allergy (Severe, Verified 09/10/23 12:12) DIFFICULTY SWALLOWING zoledronic acid [From ZOMETA] Allergy (Severe, Verified 09/10/23 12:12) DIFFICULTY SWALLOWING latex [Latex] Allergy (Intermediate, Verified 09/10/23 12:12) RASH hydroxyzine [From VISTARIL] Allergy (Mild, Verified 09/10/23 12:12) SWELLING Assessment & Plan Assessment & Plan (1) Back pain: Code(s): M54.9 - Dorsalgia, unspecified Plan Dear Dr Aldana, Thank you for referring Mrs Bauman to our office today. This is a 53-year-old female presents for evaluation of low back pain. She thinks it started maybe 3- 4 months ago. She has a disabled grandchild who she looks after she does a lot of lifting and transfers with him. She has some pains that they go down the outside of her legs as well. During the day she seems to be okay but primarily at nighttime when she is sleeping she feels the symptoms even worse. She will roll [id number] at night. To this point she has only taken [id number] pain medications as needed. No physical therapy, injections etc.. She is sent today to see me for evaluation with an MRI showing some mild degenerative disc disease. PMH: Anxiety, depression, PTSD, bipolar, left shoulder surgery, obesity Social hx: She does not smoke, does not drink or use any marijuana Medications: Klonopin, Ozempic, lamotrigine, solifenacin, gabapentin Allergies: Please see the [employer] list Physical exam: She is awake alert oriented no acute distress, she does have positive EDGAR sign bilaterally, intact strength and reflexes, negative straight leg raise Imaging review: Lumbar MRI shows some very mild degenerative disc disease at L4-5 and L5-S1, there is no nerve root impingement. Impression: 53-year-old female with 3-4 months of low back pain extending out laterally by the SI joints, it does radiate down her legs from time to time. Primarily bothers her at night or she has on a long car ride. She is very mild disc degeneration, nothing that would explain her symptoms. There is no nerve compression either to explain the leg pain. It could be SI joint inflammation or irritation. At this point, with no real conservative treatment, the 1st step obviously would be physical therapy, maybe a cortisone injection or 2. This would at least help the diagnosis of where this is coming from so I would lean in the favor of an SI joint block. I offered her the option therapy but she d oes not think she will be able to make it out of the house enough to having meaningful value. She tells me she is already set up to see someone in pain management so I will let them decide what they think is best to do for her pain. Certainly she needs no surgery on our end. Thank you for allowing us to care for your patient. The total time spent with this visit with this patient was 45 minutes reviewing history, physical exam, lumbar imaging review, and implementation of treatment plan or further diagnostic testing John Mensah MD,PhD [facility] Coding Level of Care Code New Pt Level 4 (20758) Diagnoses Back pain M54.9
== END 2023-09-17 10:52 | disposition home or self-care (01) ==
PROVIDERS: PCP Internal Medicine; Referring Provider Internal Medicine; Visit Provider Physician Assistant
DX: M54.9 Dorsalgia, unspecified (principal)
CPT/HCPCS: 99204

== ENCOUNTER → 2023-09-17 10:00 | Outpatient (BNVA) | payer OTHER, SELFPAY | PROVIDERS: PCP Internal Medicine; Referring Provider Internal Medicine; Visit Provider Physician Assistant | DX: M54.50 Low back pain, unspecified (principal); M51.36 Other intervertebral disc degeneration, lumbar region | CPT/HCPCS: 99202 ==

== ENCOUNTER 2023-09-22 09:39 | Outpatient (AMB) | payer OTHER, SELFPAY ==
[2023-09-22 10:00] VITALS: BMI 32.3
--- NOTE | 2023-09-22 10:00 | A.OFFVIS_ITS ---
Intake Vital Signs 09/22/23 10:00 Height 5 ft 4 in Weight 188 lb BMI 32.3 Intake Visit Reasons: OV - Lumbar Spine Review - ? Bursa Injection Intake Note: Daxa is a 53 year old female who presents with bilateral hip pains, left greater than right as well as chronic low back pain. The patient was evaluated in the neurosurgery department and was told that there is no indication for low back surgery at this time. RBUIA Mock feels that some of her symptoms are coming from sacroiliac joint pathology. He recommended possible sacroiliac j oint injection. The patient also has intermittent pains along the lateral aspects of both of her hips. She has tried Tylenol and anti-inflammatory medicines which gave her minimal relief. She has also done physical therapy exercises which aggravated her pain. Allergies mannitol [From ZOMETA] Allergy (Severe, Verified 09/22/23 10:01) DIFFICULTY SWALLOWING water for injection,sterile [From ZOMETA] Allergy (Severe, Verified 09/22/23 10:01) DIFFICULTY SWALLOWING zoledronic acid [From ZOMETA] Allergy (Severe, Verified 09/22/23 10:01) DIFFICULTY SWALLOWING latex [Latex] Allergy (Intermediate, Verified 09/22/23 10:01) RASH hydroxyzine [From VISTARIL] Allergy (Mild, Verified 09/22/23 10:01) SWELLING Medication List - Last Reconciled 09/22/23 by Raphael Lemos MD bisacodyl (Dulcolax (bisacodyl)) 20 mg (4 x 5 mg) PO ONCE 1 day clonazepam 1 mg PO TID gabapentin 400 mg PO TID lamotrigine 100 mg PO DAILY polyethylene glycol 3350 (Miralax) 238 grams PO ONCE PRN 1 day semaglutide 1 mg (0.75 mL) subcut QWEEK solifenacin (Vesicare) 10 mg PO DAILY PRN valacyclovir 500 mg PO DAILY 90 days [facility] Medical History Depression Anxiety Surgical History History of tubal ligation Hx of right breast biopsy Hx of section Social History Housing: Apartment Are you a primary hospice care transitions coordinator to a significant other at home: No Do you presently have visiting nurse or other home services: No Alcohol intake: never Patient Tobacco Use Status: Never used Tobacco Tobacco use type: Cigarette Years Smoked: 8 years e-Cigarette/Vaping Use: Never Used service: No Current occupational status: disabled 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 Cognitive needs: No Hearing needs: No Vision needs: No Female Reproductive History Menstrual Age of Menarche: 12 Physical Exam Vital Signs: BMI result Body Mass Index 32.3 Const Other: Well-nourished well-developed very friendly female awake alert and oriented x3 in no acute distress Extrem Other: Bilateral lower extremity examination shows good capillary refill, no skin lesions noted, normal sensation light touch Bilateral hip examination shows minimal discomfort with range of motion, tenderness over her bursae, no overlying skin lesions Office Procedures Joint Injection/Drain Joint Injection/Drain Primary Site: other (Left hip greater trochanteric bursa) Prep: site was prepped using aseptic technique Injected: 40 mg of, DepoMedrol and 1% plain lidocaine Procedure: The patient tolerated the procedure well Coding 29016 - Large joint Procedure code (CPT) selection complete Assessment & Plan Assessment & Plan (1) Greater trochanteric bursitis of left hip: Code(s): M70.62 - Trochanteric bursitis, left hip Plan Ms. Bauman presents with intermittent pain along the lateral aspects of both of her hips, left greater than right, possibly due to greater trochanteric bursitis. Thus, the risks and benefits of a left hip greater trochanteric bursa cortisone injection were discussed at length with the patient. The patient wished to proceed. She tolerated the injection well. She will continue with her home stretching program. I will also see whether not the patient's can be evaluated in the pain management Clinic by Dr. Jarrett for evaluation of possible sacroiliac joint injections. The patient will follow-up as instructed. Feel free to call me at any time should questions regarding her orthopedic management arise. I spent 22 minutes in reviewing the patient's records and imaging studies, seeing the patient and documenting in the medical record. Orders: Orders AMB Joint Injection/Aspiration Today M70.62 - Trochanteric bursitis, left hip Referrals Pain Management Referral G89.29 - Other chronic pain, M53.3 - Sacrococcygeal disorders, not elsewhere classified Coding Level of Care Code Est Pt Level 2 (29941) Diagnoses Greater trochanteric bursitis of left hip M70.62 CPT Codes Coding - 53303 Large joint: 15082 - Large joint ([id number])
== END 2023-09-22 10:38 | disposition home or self-care (01) ==
PROVIDERS: PCP Internal Medicine; Visit Provider Orthopaedic Surgery
DX: M70.62 Trochanteric bursitis, left hip (principal)
CPT/HCPCS: 20610; 99213

== ENCOUNTER → 2023-09-22 09:39 | Outpatient (BNVA) | payer OTHER, SELFPAY | PROVIDERS: PCP Internal Medicine; Visit Provider Orthopaedic Surgery | DX: M70.62 Trochanteric bursitis, left hip (principal) | CPT/HCPCS: 20610; 99212; J1020 ==

== ENCOUNTER 2023-09-28 11:41 | Day surgery (SDC) | payer OTHER, SELFPAY ==
--- NOTE | 2023-09-27 09:30 | P.CONAN_ITS ---
Documented by User: Elizabeth Bustamante NP 09/27/23 09:32 HPI - Anesthesia Eval Consult details Narrative: 53yo F for Colonoscopy Anesthesia Pre-Procedure Meds Is the patient on any of the following meds?: Semaglutide (Ozempic) (For weight loss) PMFSH Active Problems Active Problems: All Active Problems (Updated 09/22/23 @ 10:40 by Raphael Lemos MD) Greater trochanteric bursitis of left hip (Acute) Chronic left sacroiliac joint pain (Acute) Back pain (Acute) Abnormal MRI, lumbar spine (Acute) Lumbar back pain with radiculopathy affecting lower extremity (Acute) Lumbar disc disease (Acute) Recurrent cold sores (Acute) Low back pain radiating down leg (Acute) Left hip pain (Acute) Right hip pain (Acute) Obesity due to excess calories (Acute) Trochanteric bursitis of both hips (Acute) Colon cancer screening (Acute) Impaired fasting blood sugar (Acute) LFT elevation (Acute) STD exposure (Acute) Status post right rotator cuff repair (Acute) Heel spur (Acute) Osteoarthritis of foot, right (Acute) Left rotator cuff tear (Acute) Pain of right heel (Acute) Anxiety (Acute) Right rotator cuff tear (Acute) Stress incontinence (Acute) Hot flashes (Acute) Major depressive disorder, recurrent, severe w/o psychotic behavior (Acute) Generalized anxiety disorder with panic attacks (Acute) Swelling of lower extremity (Acute) Hx of tubal ligation (Acute) Depression (Acute) Kristin-menopause (Acute) Potential exposure to STD (Acute) Well woman exam with routine gynecological exam (Acute) Dysuria (Acute) Routine gynecological examination (Acute) Encounter for general adult medical examination with abnormal findings (Acute) Obesity (BMI 30.0-34.9) (Acute) Impingement syndrome of both shoulders (Acute) Facial rash (Acute) Shoulder pain, bilateral (Acute) Past Medical History Medical History Depression Anxiety Family History Family history of problems with anesthesia: No Surgical History Surgical History History of tubal ligation Hx of right breast biopsy Hx of section History of Problems with Anesthesia: No Social History Social History Housing: Apartment Are you a primary aged or disabled carer to a significant other at home: No Do you presently have visiting nurse or other home services: No Alcohol intake: never Patient Tobacco Use Status: Never used Tobacco Tobacco use type: Cigarette Years Smoked: 8 years e-Cigarette/Vaping Use: Never Used Are you DNR?: No Advance Directives: No Advance Directives Information Provided: Yes Nutrition Risks: No Nutritional Risk service: No Current occupational status: disabled 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 Cognitive needs: No Hearing needs: No Vision needs: No Meds Allergies Allergy/AdvReac Type Severity Reaction Status Date / Time mannitol [From ZOMETA] Allergy Severe DIFFICULTY Verified 09/28/23 14:46 SWALLOWING water for injection,sterile Allergy Severe DIFFICULTY Verified 09/28/23 14:46 [From ZOMETA] SWALLOWING zoledronic acid [From ZOMETA] Allergy Severe DIFFICULTY Verified 09/28/23 14:46 SWALLOWING latex [Latex] Allergy Intermediate RASH Verified 09/28/23 14:46 hydroxyzine [From VISTARIL] Allergy Mild SWELLING Verified 09/28/23 14:46 Home Medications Medication Instructions Recorded Confirmed Last Taken Type gabapentin 400 mg capsule 400 mg PO TID 12/11/20 09/28/23 05/27/22 History lamotrigine 100 mg tablet 100 mg PO DAILY 07/07/22 09/28/23 Unknown History clonazepam 1 mg tablet 1 mg PO TID 12/16/22 09/28/23 09/28/23 History Exam Pertinent Lab Results Pertinent Lab Results: Laboratory Tests 08/17/23 13:10 WBC 7.2 Hgb 13.5 Hct 42.1 Plt Count 261 Sodium 145 Potassium 3.8 Chloride 106 Carbon Dioxide 31 H BUN 12 Creatinine 0.77 Narrative Narrative: EKG 12/2022 Vent. Rate : 070 BPM Atrial Rate : 070 BPM P-R Int : 162 ms QRS Dur : 084 ms QT Int : 386 ms P-R-T Axes : 042 031 031 degrees QTc Int : 416 ms Normal sinus rhythm Normal ECG When compared with ECG of 31-MAR-2013 22:00, No significant change was found Assessment and Plan Assessment Anesthesia Assessment: Chart Reviewed Final Anesthetic Review Family History of Problems with Anesthesia: No History of Problems with Anesthesia: No Documented by User: Yvette Cha MD 09/30/23 07:08 HPI - Anesthesia Eval Anesthesia Pre-Procedure Meds If Yes to any meds - educate patient: Pt education - increased risk of aspiration PMFSH Past Medical History Medical History Depression Anxiety Surgical History Surgical History History of tubal ligation Hx of right breast biopsy Hx of section Social History Social History Housing: Apartment Are you a primary aged or disabled carer to a significant other at home: No Do you presently have visiting nurse or other home services: No Alcohol intake: never Patient Tobacco Use Status: Never used Tobacco Tobacco use type: Cigarette Years Smoked: 8 years e-Cigarette/Vaping Use: Never Used Are you DNR?: No Advance Directives: No Advance Directives Information Provided: Yes Nutrition Risks: No Nutritional Risk service: No Current occupational status: disabled 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 Cognitive needs: No Hearing needs: No Vision needs: No Meds Allergies Allergy/AdvReac Type Severity Reaction Status Date / Time mannitol [From ZOMETA] Allergy Severe DIFFICULTY Verified 09/28/23 14:46 SWALLOWING water for injection,sterile Allergy Severe DIFFICULTY Verified 09/28/23 14:46 [From ZOMETA] SWALLOWING zoledronic acid [From ZOMETA] Allergy Severe DIFFICULTY Verified 09/28/23 14:46 SWALLOWING latex [Latex] Allergy Intermediate RASH Verified 09/28/23 14:46 hydroxyzine [From VISTARIL] Allergy Mild SWELLING Verified 09/28/23 14:46 Home Medications Medication Instructions Recorded Confirmed Last Taken Type gabapentin 400 mg capsule 400 mg PO TID 12/11/20 09/28/23 05/27/22 History lamotrigine 100 mg tablet 100 mg PO DAILY 07/07/22 09/28/23 Unknown History clonazepam 1 mg tablet 1 mg PO TID 12/16/22 09/28/23 09/28/23 History
[2023-09-28 13:43] VITALS: BMI 32.4
--- NOTE | 2023-09-28 13:54 | P.CONAN_ITS ---
[facility] Active Problems Active Problems: All Active Problems (Updated 09/22/23 @ 10:40 by Raphael Lemos MD) Greater trochanteric bursitis of left hip (Acute) Chronic left sacroiliac joint pain (Acute) Back pain (Acute) Abnormal MRI, lumbar spine (Acute) Lumbar back pain with radiculopathy affecting lower extremity (Acute) Lumbar disc disease (Acute) Recurrent cold sores (Acute) Low back pain radiating down leg (Acute) Left hip pain (Acute) Right hip pain (Acute) Obesity due to excess calories (Acute) Trochanteric bursitis of both hips (Acute) Colon cancer screening (Acute) Impaired fasting blood sugar (Acute) LFT elevation (Acute) STD exposure (Acute) Status post right rotator cuff repair (Acute) Heel spur (Acute) Osteoarthritis of foot, right (Acute) Left rotator cuff tear (Acute) Pain of right heel (Acute) Anxiety (Acute) Right rotator cuff tear (Acute) Stress incontinence (Acute) Hot flashes (Acute) Major depressive disorder, recurrent, severe w/o psychotic behavior (Acute) Generalized anxiety disorder with panic attacks (Acute) Swelling of lower extremity (Acute) Hx of tubal ligation (Acute) Depression (Acute) Kristin-menopause (Acute) Potential exposure to STD (Acute) Well woman exam with routine gynecological exam (Acute) Dysuria (Acute) Routine gynecological examination (Acute) Encounter for general adult medical examination with abnormal findings (Acute) Obesity (BMI 30.0-34.9) (Acute) Impingement syndrome of both shoulders (Acute) Facial rash (Acute) Shoulder pain, bilateral (Acute) Past Medical History Medical History Depression Anxiety Family History Family history of problems with anesthesia: No Surgical History Surgical History History of tubal ligation Hx of right breast biopsy Hx of section History of Problems with Anesthesia: No Social History Social History Housing: Apartment Are you a primary child day care provider to a significant other at home: No Do you presently have visiting nurse or other home services: No Alcohol intake: never Patient Tobacco Use Status: Never used Tobacco Tobacco use type: Cigarette Years Smoked: 8 years e-Cigarette/Vaping Use: Never Used Are you DNR?: No Advance Directives: No Advance Directives Information Provided: Yes Nutrition Risks: No Nutritional Risk service: No Current occupational status: disabled 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 Cognitive needs: No Hearing needs: No Vision needs: No Meds Allergies Allergy/AdvReac Type Severity Reaction Status Date / Time mannitol [From ZOMETA] Allergy Severe DIFFICULTY Verified 09/22/23 10:01 SWALLOWING water for injection,sterile Allergy Severe DIFFICULTY Verified 09/22/23 10:01 [From ZOMETA] SWALLOWING zoledronic acid [From ZOMETA] Allergy Severe DIFFICULTY Verified 09/22/23 10:01 SWALLOWING latex [Latex] Allergy Intermediate RASH Verified 09/22/23 10:01 hydroxyzine [From VISTARIL] Allergy Mild SWELLING Verified 09/22/23 10:01 Active Medications: Current Medications Lactated Ringer's (Lr) 1,000 mls @ 100 mls/hr IVCONT .Q10H [facility] Home Medications Medication Instructions Recorded Confirmed Last Taken Type gabapentin 400 mg capsule 400 mg PO TID 12/11/20 09/28/23 05/27/22 History lamotrigine 100 mg tablet 100 mg PO DAILY 07/07/22 09/28/23 Unknown History clonazepam 1 mg tablet 1 mg PO TID 12/16/22 09/28/23 09/28/23 History Exam Height,Weight and Vital Signs: Height 5 ft 4 in Weight 85.548 kg Airway Mallampati Class: II TM Dist: >3cm Neck ROM: Full Partial: Upper Assessment and Plan Final Anesthetic Review Family History of Problems with Anesthesia: No History of Problems with Anesthesia: No ASA Class: II Final Preanesthetic Review: No Changes in Pt Med Stat, Meds/Allgs Chart Reviewed, Consent Obtained/Reviewed and Anes Risks/Benef Reviewed Patient Risk: Intermediate Procedure Risk: Low Anesthetic Plan Anesthetic Plan: TIVA Disposition: Standard PACU
[2023-09-28 14:07] VITALS: BP 124/73; PULSE 70; RESP 18; TEMP 36.7; O2SAT 99
[2023-09-28] MEDS: Lactated Ringers 1,000 ML 100 ML IVCONT (14:07)
--- NOTE | 2023-09-28 14:14 | MHC.SHP ---
Pre-Procedural Eval Section A Date of Service: 09/28/23 The patient is an INPATIENT: No The History & Physical has been completed within 30 days and I have reviewed it.: No Section B Chief Complaint: Encounter for screening for malignant neoplasm of Relevant Family History (Specify if Yes): No Relevant Social History: None Present Medications: see Short Stay Collaborative assessment Medical History: Significant History (anxiety and depression) History of Previous Operations: Relevant previous surgery/procedure and date(s) (History of tubal ligation Hx of section Hx of right breast biopsy) Allergies: Allergies Allergy/AdvReac Type Severity Reaction Status Date / Time mannitol [From ZOMETA] Allergy Severe DIFFICULTY Verified 09/22/23 10:01 SWALLOWING water for injection,sterile Allergy Severe DIFFICULTY Verified 09/22/23 10:01 [From ZOMETA] SWALLOWING zoledronic acid [From ZOMETA] Allergy Severe DIFFICULTY Verified 09/22/23 10:01 SWALLOWING latex [Latex] Allergy Intermediate RASH Verified 09/22/23 10:01 hydroxyzine [From VISTARIL] Allergy Mild SWELLING Verified 09/22/23 10:01 Review of Systems Sugical H&P ROS: Negative: Constitution, Cardiovascular, Respiratory and Gastrointestinal Exam Surgical H&P Exam: Normal: Heart, Normal: Lungs, Normal: Extremities and Normal: Abdomen Plan Diagnosis/Plan: Unchanged I have reviewed the history and physical and performed a pertinent physical examination on my patient. No changes have occurred unless specified. Time Spent With Patient Time: Total time managing care of this patient today ____ minutes.
--- NOTE | 2023-09-28 14:59 | P.OP_ITS ---
Operative Note Operative Note Date of Service: 09/28/23 Narrative: COLONOSCOPY TILL CECUM Pre-op diagnosis: Colon cancer screening Post-op diagnosis:? Diverticulosis, hemorrhoids Endoscopist:? Lidia Castorena MD Anesthesia:?MAC Consent: Indications for the procedure and potential complications of bleeding, perforation, reaction to medications and missed diagnosis were discussed with the patient and informed consent was obtained. Instrument: Olympus PCF H 190 L variable stiffness pediatric colonoscope Monitoring: Vital signs and clinical assessment, intermittent blood pressure monitoring, continuous EKG monitoring, Pulse oximetry and Carbon Dioxide monitoring were done throughout the procedure. Please see anesthesia flowsheet. Colon withdrawl time was 30 minutes. Procedure: The patient was placed in the left lateral decubitis position and pre-procedure medications were administered. After a digital rectal examination of the ano-rectum, the video colonoscope was inserted into the rectum and advanced through the colon to the cecum. The colonoscope was slowly withdrawn in a retrograde panoramic fashion and the colon mucosa was carefully examined including a retroflexed view of the rectum. Findings and interventions are described below. Procedure Difficulty: Without difficulty Findings: Terminal Ileum: Not evaluated Cecum: Normal Ascending Colon: Normal Transverse Colon: Normal Descending Colon: Normal Sigmoid Colon: Moderate diverticulosis Rectum: Normal Ano-rectum: Moderate internal hemorrhoids Colon preparation: Good in the right and transverse colon after copious irrigation and fair in the left colon [place] Bowel Preparation Scale Right colon; 3 Transverse colon: 3 Left colon; 1 (0 = Unprepared colon segment with mucosa not seen due to solid stool that cannot be cleared. 1 = Portion of mucosa of the colon segment seen, but other areas of the colon segment not well seen due to staining, residual stool and/or opaque liquid. 2 = Minor amount of residual staining, small fragments of stool and/or opaque liquid, but mucosa of colon segment seen well. 3 = Entire mucosa of colon segment seen well with no residual staining, small fragments of stool or opaque liquid) Impression and Post Procedure Diagnosis: Colonoscopy Findings: No polyps were detected. Moderate diverticulosis seen in the sigmoid colon Moderate hemorrhoids on retroflexed exam. Colon preparation: Good in the right and transverse colon after copious irrigation and fair in the left colon Plan: Patient has an appointment on 11/04/23 in the [facility] with RUBIA Urias. Repeat Colonoscopy in 3 years due to fair prep in the left colon (needs dulcolax 2 tablets daily starting 5 days before the colonoscopy for next colon). Above findings were reviewed with the patient and diverticulosis handout was given in the discharge area
[2023-09-28 16:05] VITALS: BP 112/71; PULSE 72; RESP 16; TEMP 36.6; O2SAT 98
[2023-09-28 16:20] VITALS: BP 132/84; PULSE 72; RESP 18; TEMP 36.6; O2SAT 100
== END 2023-09-28 16:37 | disposition home or self-care (01) ==
PROVIDERS: PCP Internal Medicine; Visit Provider Internal Medicine Gastroenterology
PROC: 0DJD8ZZ Inspection of Lower Intestinal Tract, Via Natural or Artificial Opening Endoscopic (ICD-10-PCS; CPT 45378; principal; 2023-09-28 13:40)
DX: Z12.11 Encounter for screening for malignant neoplasm of colon (principal); K57.30 Diverticulosis of large intestine without perforation or abscess without bleeding; K64.8 Other hemorrhoids
CPT/HCPCS: G0121; J2704

== ENCOUNTER → 2023-09-28 11:41 | Outpatient (BNV) | payer OTHER, SELFPAY | PROVIDERS: PCP Internal Medicine; Visit Provider Internal Medicine Gastroenterology | DX: Z12.11 Encounter for screening for malignant neoplasm of colon (principal); K57.30 Diverticulosis of large intestine without perforation or abscess without bleeding; K64.8 Other hemorrhoids | CPT/HCPCS: G0121 ==

== ENCOUNTER 2023-10-19 09:33 | Outpatient (AMB) | payer OTHER, SELFPAY ==
--- NOTE | 2023-10-19 09:43 | A.OFFPC_ITS ---
Intake Visit Reasons: Follow Up~ Allergies mannitol [From ZOMETA] Allergy (Severe, Verified 10/19/23 09:43) DIFFICULTY SWALLOWING water for injection,sterile [From ZOMETA] Allergy (Severe, Verified 10/19/23 09:43) DIFFICULTY SWALLOWING zoledronic acid [From ZOMETA] Allergy (Severe, Verified 10/19/23 09:43) DIFFICULTY SWALLOWING latex [Latex] Allergy (Intermediate, Verified 10/19/23 09:43) RASH hydroxyzine [From VISTARIL] Allergy (Mild, Verified 10/19/23 09:43) SWELLING Medication List - Last Reconciled 10/19/23 by Venancio Aldana MD clonazepam 1 mg PO TID gabapentin 400 mg PO TID lamotrigine 100 mg PO DAILY solifenacin (Vesicare) 10 mg PO DAILY PRN valacyclovir 500 mg PO DAILY 90 days Tobacco use date assessed: 10/19/23 Dental Screening Dental Screen Date: 10/19/23 Did you have a dental visit in the last 12 months?: Yes Did you have a dental problem in the last 6 months where you did not have access to dental care?: No Was dental information given to patient?: Patient has dentist HPI Follow Up~ HPI Details Patient is a 53-year-old female this is a telemedicine video conference follow-up 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 Mild bilateral neural foraminal narrowing with the disc abutting the exiting L4 and L5 nerve roots bilaterally. No significant spinal canal stenosis. Patient says that the pain is affecting her daily life. Semaglutide injections for weight loss were denied by her insurance company. Continued to have severe hot flashes after menopause Patient is on VESIcare for overactive bladder which is helping her. She also take valacyclovir for recurrent cold sores. Both medications are on hold as patient has enough and does not need more refills at this time She will call me when she needs refill. Patient have appointment in February for physical exam. 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 1. Little interest or pleasure in doing things: more than half the days 2. Feeling down, depressed, or hopeless: more than half the days 3. Trouble falling or staying asleep, or sleeping too much: several days 4. Feeling tired or having little energy: more than half the days 5. Poor appetite or overeating: more than half the days 6. Feeling bad about yourself - or that you are a failure or have let yourself or your family down: nearly every day 7. Trouble concentrating on things, such as reading the newspaper or watching television: nearly every day 8. Moving or speaking so slowly that other people could have noticed. Or the opposite - being so fidgety or restless that you have been moving around a lot more than usual: several days 9. Thoughts that you would be better off or of hurting yourself in some way: several days Total score: 17 Depression Screening Interpretation: Positive Depression Screening Follow-up: Existing condition and In treatment Depression Screening Done: Yes 55543 - PHQ-9 Billing: Yes Source: Developed by Drs. Wiley Gonzalez, Alyssa Amaro, Skyler Chao and colleagues, with an educational ragini from [employer]. Thrive Questionnaire Date Thrive assessed: 10/19/23 I am a: Patient What is your living situation today?: I have a steady place to live Within the past 12 months, did the food you bought not last and you didn't have the money to get more?: Never true Within the past 12 months, did you worry whether your food would run out before you got money to buy more?: Never true Do you have trouble paying for medicines?: No Do you have trouble getting transportation to medical appointments?: No Do you have trouble paying your heating and electricity bill?: No Do you have trouble taking care of your child, family member or friend?: No Do you have trouble with day-to-day activities such as bathing, preparing meals, shopping, managing finances, etc.?: No Are you currently unemployed and looking for a job?: No Are you interested in more education?: No Please select the resources that you would like help with: None Currently or been in a relationship where the following occur: no concerns reported THRIVE Score: 0 EARLENE-7 AMB Questionnaire EARLENE-7 Date EARLENE - 7 assessed: 10/19/23 Feeling nervous, anxious, or on edge: 2 = More than half the days Not being able to stop or control worryin = Several days Worrying too much about different things: 3 = Nearly every day Trouble relaxin = More than half the days Being so restless that it is hard to sit still: 2 = More than half the days Becoming easily annoyed or irritable: 3 = Nearly every day Feeling afraid as if something awful might happen: 1 = Several days Total EARLENE-7 score (0-4 normal; 5-9 mild; 10-14 moderate; 15-21 severe): 14 Source: Developed by Drs. Wiley Gonzalez, Alyssa Amaro, Skyler Chao and colleagues, with an educational ragini from [employer]. EARLENE-7 Assessment Billing EARLENE-7 Assessment Tool: EARLENE-7 Assessment 91136 Review of Systems Const Denies chills and Denies fever(s) ENT Denies epistaxis and Denies nasal discharge Card Denies chest pain Resp Denies chest congestion, Denies cough and Denies hemoptysis GI Denies diarrhea and Denies nausea Skin/Breast Denies rash Neuro Reports no additional complaints Psych Reports no additional complaints Endo Reports no additional complaints Physical exam (Primary Care) Tobacco/Smoking Status: Tobacco use Status Tobacco use date assessed 10/19/23 10/19/23 09:45 Patient Tobacco Use Status Never used Tobacco 10/19/23 09:45 Tobacco use type Cigarette 02/13/24 09:45 e-Cigarette/Vaping Use Never Used 10/19/23 09:45 PHQ-9: PHQ-9 Score PHQ-9: Total score 17 10/19/23 10:50 Depression Screening Interpretation: Positive Depression Screening Follow-up: Existing condition and In treatment Thrive Assessment: Date of Thrive Assessment Date Thrive assessed 10/19/23 10/19/23 09:51 Currently or been in a relationship where the following occur: no concerns reported Telehealth Telehealth Location of provider rendering services: practice address Location of patient: address on file Patient Identification confirmed using: Name, : Yes Telehealth method: video Patient verbally consented to treatment: Yes Patient verbally consented to billing insurance company: Yes Patient informed of any privacy concerns related to visit: Yes Assessment and Plan Assessment & Plan (1) Overactive bladder: Code(s): N32.81 - Overactive bladder (2) Lumbar back pain with radiculopathy affecting lower extremity: Code(s): M54.16 - Radiculopathy, lumbar region (3) Low back pain radiating down leg: Code(s): M54.50 - Low back pain, unspecified; M79.606 - Pain in leg, unspecified (4) Major depressive disorder, recurrent, severe w/o psychotic behavior: Code(s): F33.2 - Major depressive disorder, recurrent severe without psychotic features (5) Impaired fasting blood sugar: Code(s): R73.01 - Impaired fasting glucose (6) LFT elevation: Code(s): R79.89 - Other specified abnormal findings of blood chemistry (7) Lumbar disc disease: Code(s): M51.9 - Unspecified thoracic, thoracolumbar and lumbosacral intervertebral disc disorder (8) Abnormal MRI, lumbar spine: Code(s): R93.7 - Abnormal findings on diagnostic imaging of other parts of musculoskeletal system (9) Hot flashes: Code(s): R23.2 - Flushing Plan Patient is a 53-year-old female this is a telemedicine video conference follow- up 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 Mild bilateral neural foraminal narrowing with the disc abutting the exiting L4 and L5 nerve roots bilaterally. No significant spinal canal stenosis. Patient says that the pain is affecting her daily life. Semaglutide injections for weight loss were denied by her insurance company. Continued to have severe hot flashes after menopause Patient is on VESIcare for overactive bladder which is helping her. She also take valacyclovir for recurrent cold sores. Both medications are on hold as patient has enough and does not need more refills at this time She will call me when she needs refill. Patient have appointment in February for physical exam. Psychiatric care through Psychiatry, patient continued to be severely depressed however she is suicidal Medications: On Hold solifenacin (Vesicare) Hold Comment: Pt has enough 10 mg PO DAILY PRN 90 tabs 0RF Bladder disorder valacyclovir Hold Comment: pt has enough 500 mg PO DAILY 90 days 90 tabs 0RF Coding Level of Care Code Tele Est Pt Level 4 (31076) Diagnoses Overactive bladder N32.81 Lumbar back pain with radiculopathy affecting lower extremity M54.16 Low back pain radiating down leg M54.50; M79.606 Major depressive disorder, recurrent, severe w/o psychotic behavior F33.2 Impaired fasting blood sugar R73.01 LFT elevation R79.89 Lumbar disc disease M51.9 Abnormal MRI, lumbar spine R93.7 Hot flashes R23.2 Additional Codes EARLENE-7 Assessment Billing - EARLENE-7 Assessment Tool: EARLENE-7 Assessment 42173 ([id number]) Comment 5 minute pre visit, 15 with patient, 5 minute charting, 5 minutes coordination care
== END 2023-10-19 11:13 | disposition home or self-care (01) ==
PROVIDERS: PCP Internal Medicine; Visit Provider Internal Medicine
DX: N32.81 Overactive bladder (principal); F33.2 Major depressive disorder, recurrent severe without psychotic features; M54.16 Radiculopathy, lumbar region; M54.50 Low back pain, unspecified; M79.606 Pain in leg, unspecified; R73.01 Impaired fasting glucose; R79.89 Other specified abnormal findings of blood chemistry; M51.9 Unspecified thoracic, thoracolumbar and lumbosacral intervertebral disc disorder; R93.7 Abnormal findings on diagnostic imaging of other parts of musculoskeletal system; R23.2 Flushing
CPT/HCPCS: 99214

== ENCOUNTER 2023-11-04 11:31 | Outpatient (AMB) | payer OTHER, SELFPAY ==
--- NOTE | 2023-11-04 11:38 | MHC.OFFVIS ---
Intake Vital Signs 11/04/23 11:39 Height 5 ft 4 in Weight 185 lb 3.013 oz BMI 31.8 BP 134/82 Blood Pressure Location Lt brachial Position Sitting Pulse 72 Intake Visit Reasons: s/p colon Intake Note: Daxa presents in the office as a follow up colonoscopy. CC: She states that she is not having any concerns! She wants to discuss having an EGD. Allergies mannitol [From ZOMETA] Allergy (Severe, Verified 11/04/23 11:49) DIFFICULTY SWALLOWING water for injection,sterile [From ZOMETA] Allergy (Severe, Verified 11/04/23 11:49) DIFFICULTY SWALLOWING zoledronic acid [From ZOMETA] Allergy (Severe, Verified 11/04/23 11:49) DIFFICULTY SWALLOWING latex [Latex] Allergy (Intermediate, Verified 11/04/23 11:49) RASH hydroxyzine [From VISTARIL] Allergy (Mild, Verified 11/04/23 11:49) SWELLING Medication List - Last Reconciled 11/04/23 by Kayla Barone PA-C clonazepam 1 mg PO TID gabapentin 400 mg PO TID lamotrigine 100 mg PO DAILY solifenacin (Vesicare) 10 mg PO DAILY PRN valacyclovir 500 mg PO DAILY 90 days HPI HPI Comments History of Present Illness Details A 53 y/o female f/u after colonoscopy- She does admit to chronic constipation BM every 2-3 days. She does not follow any regimen. She admits she does not drink much water. Procedure reviewed as well as recommendations due to inadequate prep recommend repeating colonoscopy in 3 years CIC- She has no nausea, vomiting, abdominal pain, hematemesis, hematochezia fever chills PFSH Medical History (Updated 11/04/23 @ 12:33 by Kayla Barone PA-C) Depression Anxiety Surgical History (Updated 11/04/23 @ 12:36 by Kayla Barone PA-C) Hx of colonoscopy History of tubal ligation Hx of right breast biopsy Hx of section Social History Housing: Apartment Are you a primary technical healthcare consultant to a significant other at home: No Do you presently have visiting nurse or other home services: No Alcohol intake: never Patient Tobacco Use Status: Never used Tobacco Tobacco use type: Cigarette Years Smoked: 8 years e-Cigarette/Vaping Use: Never Used service: No Current occupational status: disabled 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 Cognitive needs: No Hearing needs: No Vision needs: No Female Reproductive History Menstrual Age of Menarche: 12 Review of Systems Const All systems reviewed & are unremarkable except as noted in HPI and below GI Reports constipation Physical Exam Vital Signs: Last Vital Signs Pulse 72 11/04/23 11:39 BP 134/82 11/04/23 11:39 BMI result Body Mass Index 31.8 Const General: cooperative, healthy appearing, comfortable and no acute distress Orientation/consciousness: patient oriented x3 Limitations: no limitations Eyes Sclerae: sclerae normal Resp Effort & Inspection: normal respiratory effort and able to speak in complete sentences Neuro General: patient oriented x3 Extrem General: Yes full ROM Psych Appearance: grossly normal and well kempt Mental Status: mental status grossly normal Speech and movement: Normal speech and movement present and Clear speech present Affect: normal affect Thought content: Normal thought content present Insight: Good insight present (Psych) Judgement: Good judgement present (Psych) Results Reviewed Results Reviewed: Impression and Post Procedure Diagnosis: Colonoscopy Findings: No polyps were detected. Moderate diverticulosis seen in the sigmoid colon Moderate hemorrhoids on retroflexed exam. Colon preparation: Good in the right and transverse colon after copious irrigation and fair in the left colon Plan: Patient has an appointment on 11/04/23 in the [facility] with RUBIA Urias. Repeat Colonoscopy in 3 years due to fair prep in the left colon (needs dulcolax 2 tablets daily starting 5 days before the colonoscopy for next colon). Assessment & Plan Assessment & Plan (1) Diverticulosis of colon: Code(s): K57.30 - Diverticulosis of large intestine without perforation or abscess without bleeding Plan: Maintain high-fiber Diverticulosis/diverticulitis ER (2) Hx of colonoscopy: Comment: Inadequate prep-no polyp seen Code(s): Z98.890 - Other specified postprocedural states Plan: Repeat colonoscopy 3 years extend prep (3) Chronic constipation: Code(s): K59.09 - Other constipation Plan: Maintain consistent bowel regimen High-fiber Medications: New polyethylene glycol 3350 (Miralax) 17 grams PO DAILY 510 grams 2RF calcium polycarbophil (Fiber Laxative (calcium polycarbophil)) 1,250 mg (2 x 625 mg) PO DAILY 60 tabs 3RF 30 days bisacodyl (Dulcolax (bisacodyl)) 10 mg [place] DAILY PRN 20 ea 2RF constipation Patient Instructions: Repeat colonoscopy 3 years with extended prep Diverticulosis/diverticulitis ER protocol review Maintain high-fiber diet, literature given Consistent bowel regimen Encouraged to call with questions or concerns Coding Level of Care Code Est Pt Level 3 (08650) Diagnoses Diverticulosis of colon K57.30 Hx of colonoscopy Z98.890 Chronic constipation K59.09 Time Spent (min) 20
[2023-11-04 11:39] VITALS: BP 134/82; PULSE 72; BMI 31.8
== END 2023-11-04 12:56 | disposition home or self-care (01) ==
PROVIDERS: PCP Internal Medicine; Visit Provider Physician Assistant
DX: K57.30 Diverticulosis of large intestine without perforation or abscess without bleeding (principal); Z98.890 Other specified postprocedural states; K59.09 Other constipation
CPT/HCPCS: 99213

== ENCOUNTER → 2023-11-04 11:31 | Outpatient (BNVA) | payer OTHER, SELFPAY | PROVIDERS: PCP Internal Medicine; Visit Provider Physician Assistant | DX: K57.30 Diverticulosis of large intestine without perforation or abscess without bleeding (principal); K59.09 Other constipation; Z98.890 Other specified postprocedural states | CPT/HCPCS: 99212 ==

== ENCOUNTER 2023-12-17 13:15 | Outpatient (AMB) | payer OTHER, SELFPAY ==
[2023-12-17 13:22] VITALS: BP 102/70; PULSE 95; O2SAT 95; BMI 32.0
--- NOTE | 2023-12-17 13:22 | A.OFFPC_ITS ---
Vital Signs 3 12/17/23 13:22 Height 5 ft 4 in Weight 186 lb 4 oz BMI 32.0 BP 102/70 Blood Pressure Location Rt brachial Position Sitting Pulse 95 Pulse Source Pulse Oximeter Pulse Oximetry (%) 95 Oxygen Delivery Method Room Air Intake Visit Reasons: Hair Loss Allergies mannitol [From ZOMETA] Allergy (Severe, Verified 12/17/23 13:25) DIFFICULTY SWALLOWING water for injection,sterile [From ZOMETA] Allergy (Severe, Verified 12/17/23 13:25) DIFFICULTY SWALLOWING zoledronic acid [From ZOMETA] Allergy (Severe, Verified 12/17/23 13:25) DIFFICULTY SWALLOWING latex [Latex] Allergy (Intermediate, Verified 12/17/23 13:25) RASH hydroxyzine [From VISTARIL] Allergy (Mild, Verified 12/17/23 13:25) SWELLING Medication List - Last Reconciled 12/17/23 by Venancio Aldana MD bisacodyl (Dulcolax (bisacodyl)) 10 mg NE DAILY PRN calcium polycarbophil (Fiber Laxative (calcium polycarbophil)) 1,250 mg (2 x 625 mg) PO DAILY 30 days clonazepam 1 mg PO TID gabapentin 400 mg PO TID lamotrigine 100 mg PO DAILY polyethylene glycol 3350 (Miralax) 17 grams PO DAILY solifenacin (Vesicare) 10 mg PO DAILY PRN valacyclovir 500 mg PO DAILY 90 days Tobacco use date assessed: 12/17/23 Dental Screening Dental Screen Date: 12/17/23 Did you have a dental visit in the last 12 months?: Yes Did you have a dental problem in the last 6 months where you did not have access to dental care?: No Was dental information given to patient?: Patient has dentist HPI Hair Loss 2 HPI0 Details Patient is a 53-year-old female who came in today to talk about hair loss which has been happening for past many months To a point where now she is seeing bald spots at the top of her head On examination it seems like 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 She also has developed an angioma right side of her nose that she wants removed I have placed a referral to Dermatology [facility] Medical History Depression Anxiety Surgical History Hx of colonoscopy History of tubal ligation Hx of right breast biopsy Hx of section Social History Housing: Apartment Are you a primary healthcare corporate account director to a significant other at home: No Do you presently have visiting nurse or other home services: No Alcohol intake: never Patient Tobacco Use Status: Never used Tobacco Tobacco use type: Cigarette Years Smoked: 8 years e-Cigarette/Vaping Use: Never Used service: No Current occupational status: disabled 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 Wiley Gonzalez, Alyssa Amaro, Skyler Chao and colleagues, with an educational ragini from [employer]. Review of Systems Const Denies chills and Denies fever(s) ENT Denies epistaxis and Denies nasal discharge Card Denies chest pain Resp Denies chest congestion, Denies cough and Denies hemoptysis GI Denies diarrhea and Denies nausea Skin/Breast Denies rash Neuro Reports no additional complaints Psych Reports no additional complaints Endo Reports no additional complaints Physical exam (Primary Care) Vital Signs: Last Vital Signs Pulse 95 12/17/23 13:22 BP 102/70 12/17/23 13:22 Pulse Ox 95 12/17/23 13:22 Oxygen Delivery Method Room Air 12/17/23 13:22 BMI result Body Mass Index 32.0 Tobacco/Smoking Status: Tobacco use Status Tobacco use date assessed 12/17/23 12/17/23 13:29 Patient Tobacco Use Status Never used Tobacco 12/17/23 13:22 Tobacco use type Cigarette 12/17/23 13:22 e-Cigarette/Vaping Use Never Used 12/17/23 13:22 Thrive Assessment: Date of Thrive Assessment Date Thrive assessed 10/19/23 12/17/23 13:22 Const General: cooperative, comfortable and no acute distress Orientation/consciousness: patient oriented x3 HENMT Head: Yes normocephalic Head images: 2 1. Small red angioma, and female pattern baldness Eyes General: appearance normal, both eyes and all related structures Neck Neck: Yes supple Resp Effort & Inspection: normal respiratory effort, no cough and no stridor Cardio Rhythm: regular rhythm Heart sounds: S1 normal heart sound present and S2 normal heart sound present Skin General skin exam: turgor normal Neuro General: patient oriented x3, tone normal and moves all extremities Extrem Right lower extremity: no edema Left lower extremity: no edema Assessment and Plan Assessment & Plan (1) Hair loss: Code(s): L65.9 - Nonscarring hair loss, unspecified (2) Change in mole: Code(s): D22.9 - Melanocytic nevi, unspecified Plan Patient is a 53-year-old female who came in today to talk about hair loss which has been happening for past many months To a point where now she is seeing bald spots at the top of her head On examination it seems like 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
== END 2023-12-17 16:35 | disposition home or self-care (01) ==
PROVIDERS: PCP Internal Medicine; Visit Provider Internal Medicine
DX: L65.9 Nonscarring hair loss, unspecified (principal); D22.9 Melanocytic nevi, unspecified
CPT/HCPCS: 99213

== ENCOUNTER 2024-02-18 10:19 | Outpatient (AMB) | payer OTHER, SELFPAY ==
--- NOTE | 2024-02-18 10:23 | MHC.PC.OV ---
Vital Signs 02/18/24 10:25 Height 5 ft 4 in Weight 182 lb BMI 31.2 BP 118/80 Blood Pressure Location Rt brachial Position Sitting Pulse 82 Pulse Source Pulse Oximeter Pulse Oximetry (%) 98 Oxygen Delivery Method Room Air Intake Visit Reasons: PE Allergies mannitol [From ZOMETA] Allergy (Severe, Verified 02/18/24 10:25) DIFFICULTY SWALLOWING water for injection,sterile [From ZOMETA] Allergy (Severe, Verified 02/18/24 10:25) DIFFICULTY SWALLOWING zoledronic acid [From ZOMETA] Allergy (Severe, Verified 02/18/24 10:25) DIFFICULTY SWALLOWING latex [Latex] Allergy (Intermediate, Verified 02/18/24 10:25) RASH hydroxyzine [From VISTARIL] Allergy (Mild, Verified 02/18/24 10:25) SWELLING Medication List - Last Reconciled 02/18/24 by Venancio Aldana MD clonazepam 1 mg PO TID gabapentin 400 mg PO TID lamotrigine 100 mg PO DAILY solifenacin (Vesicare) 10 mg PO DAILY PRN valacyclovir 500 mg PO DAILY 90 days venlafaxine ER 75 mg PO DAILY Tobacco use date assessed: 12/17/23 Dental Screening Dental Screen Date: 12/17/23 HPI PE HPI Details Patient is a 53-year-old female this is a physical examination Patient is due for Pap smear, she will call OBGYN to book appointment Due for mammogram, that to need appointment patient says that she will address that Colonoscopy was early this year Patient is taking VESIcare only when needed Patient says that she has urine incontinence only when she cough and if she is coughing a lot then she take the medication otherwise she does not Valacyclovir also as needed All other psychiatric medications are through psychiatrist. Patient have extensive tattoos all over her body Lab order placed to be done fasting, patient is requesting STD screening which I have added Follow-up 1 year [facility] Medical History Depression Anxiety Surgical History Hx of colonoscopy History of tubal ligation Hx of right breast biopsy Hx of section Social History Housing: Apartment Are you a primary insurance healthcare consultant to a significant other at home: No Do you presently have visiting nurse or other home services: No Alcohol intake: never Patient Tobacco Use Status: Never used Tobacco Tobacco use type: Cigarette Years Smoked: 8 years e-Cigarette/Vaping Use: Never Used service: No Current occupational status: disabled 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 Wiley Gonzalez, Alyssa Amaro, Skyler Chao and colleagues, with an educational ragini from [employer]. Review of Systems Const Denies chills, Denies fever(s) and Denies headache(s) Eyes Denies blurry vision ENT Denies headache(s), Denies nasal discharge, Denies nasal obstruction, Denies odynophagia and Denies sinus pain Card Denies chest pain at rest and Denies chest pain with activity Resp Denies cough and Denies hemoptysis GI Denies diarrhea, Denies odynophagia, Denies vomiting and Denies hematemesis Reports as per HPI Musc Denies abnormal gait Skin/Breast Reports as per HPI Neuro Denies Neuro-related abnormal movements, Denies Abnormal speech present, Denies abnormal gait, Denies headache(s) and Denies Sensory deficit (Neuro) Psych Denies mood swings and Denies paranoia Endo Reports as per HPI Isma/Lymph Reports as per HPI Aller/Immun Reports as per HPI Physical exam (Primary Care) Vital Signs: Last Vital Signs Pulse 82 02/18/24 10:25 BP 118/80 02/18/24 10:25 Pulse Ox 98 02/18/24 10:25 Oxygen Delivery Method Room Air 02/18/24 10:25 BMI result Body Mass Index 31.2 Tobacco/Smoking Status: Tobacco use Status Tobacco use date assessed 12/17/23 02/18/24 10:24 Patient Tobacco Use Status Never used Tobacco 02/18/24 10:24 Tobacco use type Cigarette 02/18/24 10:24 e-Cigarette/Vaping Use Never Used 02/18/24 10:24 Thrive Assessment: Date of Thrive Assessment Date Thrive assessed 10/19/23 02/18/24 10:24 Const General: cooperative, comfortable and no acute distress Orientation/consciousness: patient oriented x3 HENMT Head: Yes normocephalic and Yes atraumatic Eyes General: appearance normal, both eyes and all related structures Pupils: Equal, round and reactive pupils present EOM: EOMs intact bilaterally Neck Neck: Yes supple and No lymphadenopathy Thyroid: Thyroid normal Lymphatic: no lymphadenopathy noted Chest Breast/axilla palpation: normal palpation of the breasts Resp Effort & Inspection: normal respiratory effort and able to speak in complete sentences Auscultation: clear to auscultation bilaterally Cardio Heart sounds: S1 normal heart sound present and S2 normal heart sound present GI Palpation (GI): Soft to palpation and nontender Auscultation: normal bowel sounds General: Yes no CVA tenderness Back/Spine/Pelvis Back: no CVA tenderness Skin General skin exam: elasticity normal and turgor normal Neuro General: patient oriented x3 and gait normal Cranial nerves: Yes Equal, round and reactive pupils present Speech: No Abnormal speech present Sensory Exam: No Sensory deficit (Neuro) Coordination: tandem gait normal and Romberg test negative Extrem General: Yes normal exam except as noted and No edema Assessment and Plan Assessment & Plan (1) Encounter for general adult medical examination with abnormal findings: Code(s): Z00.01 - Encounter for general adult medical examination with abnormal findings (2) Generalized anxiety disorder with panic attacks: Code(s): F41.1 - Generalized anxiety disorder; F41.0 - Panic disorder [episodic paroxysmal anxiety] (3) Major depressive disorder, recurrent, severe w/o psychotic behavior: Code(s): F33.2 - Major depressive disorder, recurrent severe without psychotic features (4) Stress incontinence: Code(s): N39.3 - Stress incontinence (female) (male) (5) Extensive tattoos: Code(s): L81.8 - Other specified disorders of pigmentation (6) STD exposure: Code(s): Z20.2 - Contact with and (suspected) exposure to infections with a predominantly sexual mode of transmission Plan Patient is a 53-year-old female this is a physical examination Patient is due for Pap smear, she will call OBGYN to book appointment Due for mammogram, that to need appointment patient says that she will address that Colonoscopy was early this year Patient is taking VESIcare only when needed Patient says that she has urine incontinence only when she cough and if she is coughing a lot then she take the medication otherwise she does not Valacyclovir also as needed All other psychiatric medications are through psychiatrist. Patient have extensive tattoos all over her body Lab order placed to be done fasting, patient is requesting STD screening which I have added Follow-up 1 year Orders: Orders Complete Blood Count Auto Diff Today F33.2 - Major depressive disorder, recurrent severe without psychotic features, F41.0 - Panic disorder [episodic paroxysmal anxiety], F41.1 - Generalized anxiety disorder, L81.8 - Other specified disorders of pigmentation, N39.3 - Stress incontinence (female) (male), Z00.01 - Encounter for general adult medical examination with abnormal findings, Z20.2 - Contact with and (suspected) exposure to infections with a predominantly sexual mode of transmission Comprehensive [place]. Panel Fast Today Z00.01 - Encounter for general adult medical examination with abnormal findings, Z20.2 - Contact with and (suspected) exposure to infections with a predominantly sexual mode of transmission Syphilis Screen Today Z00.01 - Encounter for general adult medical examination with abnormal findings, Z20.2 - Contact with and (suspected) exposure to infections with a predominantly sexual mode of transmission Hepatitis C Antibody Today L81.8 - Other specified disorders of pigmentation Lipid Panel Today Z00.01 - Encounter for general adult medical examination with abnormal findings, Z20.2 - Contact with and (suspected) exposure to infections with a predominantly sexual mode of transmission HIV Ab/Ag Today Z00.01 - Encounter for general adult medical examination with abnormal findings, Z20.2 - Contact with and (suspected) exposure to infections with a predominantly sexual mode of transmission Coding Level of Care Code Est Pt Level 3 (53868) Est Pt Prev Care 40-64y(70134) Diagnoses Encounter for general adult medical examination with abnormal findings Z00.01 Generalized anxiety disorder with panic attacks F41.1; F41.0 Major depressive disorder, recurrent, severe w/o psychotic behavior F33.2 Stress incontinence N39.3 Extensive tattoos L81.8 STD exposure Z20.2
[2024-02-18 10:25] VITALS: BP 118/80; PULSE 82; O2SAT 98; BMI 31.2
== END 2024-02-18 10:42 | disposition home or self-care (01) ==
PROVIDERS: PCP Internal Medicine; Visit Provider Internal Medicine
DX: Z00.00 Encounter for general adult medical examination without abnormal findings (principal); F33.2 Major depressive disorder, recurrent severe without psychotic features; F41.1 Generalized anxiety disorder; F41.0 Panic disorder [episodic paroxysmal anxiety]; N39.3 Stress incontinence (female) (male); L81.8 Other specified disorders of pigmentation; Z20.2 Contact with and (suspected) exposure to infections with a predominantly sexual mode of transmission
CPT/HCPCS: 99396

== ENCOUNTER 2024-04-12 09:45 | Outpatient (REF) | payer OTHER, SELFPAY ==
[2024-04-12 13:23] LABS: MANUAL DIFF FLAG NO
[2024-04-12 13:30] LABS: Basophils Percent Auto 0.5 % (0-2); Eosinophils Absolute Auto 0.2 X10*3/uL (0.0-0.4); Eosinophils Percent Auto 2.6 % (0-4); Hematocrit 41.1 % (37.0-47.0); Hemoglobin 13.5 g/dl (12.0-16.0); Imm Gran Abs Auto 0.01 X10*3/uL (0.00-0.03); Imm Gran Pct Auto 0.2 % (0.0-0.4); Lymphocytes Percent Auto 32.4 % (20-40); Mean Corpuscular HGB Conc 32.8 g/dl (31.0-35.0); Mean Corpuscular Hemoglobin 29.7 pg (27.0-33.0); Mean Corpuscular Volume 90.5 fL (80.0-98.0); Mean Platelet Volume 9.1 fL (9.4-12.3); Monocytes Absolute Auto 0.4 X10*3/uL (0.1-1.2); Monocytes Percent Auto 5.9 % (2-11); Neutrophils Absolute Auto 3.6 x10*3/uL (2.0-8.3); Neutrophils Percent Auto 58.4 % (45-73); Platelet Count 228 X10*3/uL (160-400); Red Blood Count 4.54 X10*6/uL (4.20-5.50); Red Cell Distribution Width 12.7 % (11.0-16.0); White Blood Count 6.1 X10*3/uL (4.8-10.8)
[2024-04-12 14:02] LABS: Alanine Aminotransferase 9 U/L (0-31); Albumin Level 4.3 g/dL (3.5-5.0); Alkaline Phosphatase 79 U/L (39-117); Anion Gap 10 (12-20); Aspartate Amino Transferase 17 U/L (5-31); Bilirubin Total 0.4 mg/dL (0.0-1.0); Blood Urea Nitrogen 13 mg/dL (9-16); Calcium 9.3 mg/dL (8.4-10.2); Carbon Dioxide 31 mmol/L (22-29); Chloride 106 mmol/L (96-108); Cholesterol 178 mg/dL (<200); Estimated Glomerular Filt Rate > 60; Glucose Fasting 83 mg/dL (60-99); HDL Cholesterol 43 mg/dL (>40); LDL Cholesterol Calculated 119 mg/dL (<100); Potassium 3.9 mmol/L (3.3-5.1); Sodium 143 mmol/L (135-145); Total Protein 7.2 g/dL (6.5-8.0); Triglycerides 81 mg/dL (<150)
[2024-04-13 07:49] LABS: Syphilis Screen Nonreactive (Nonreactive)
[2024-04-13 08:07] LABS: HIV AB/AG Nonreactive (Nonreactive); HIV Num 1 0.08 S/CO (0.00-0.99)
[2024-04-13 10:36] LABS: ~HepC Num2 0.81; ~HepC Num3 0.84
[2024-04-13 10:37] LABS: ~Hepatitis C Antibody GRAYZONE (Nonreactive)
== END 2024-04-12 09:46 | disposition home or self-care (01) ==
LOC: HO.HMGCLDS 09:45
PROVIDERS: PCP Internal Medicine; Visit Provider Internal Medicine
DX: Z00.01 Encounter for general adult medical examination with abnormal findings (principal); N39.3 Stress incontinence (female) (male); F33.2 Major depressive disorder, recurrent severe without psychotic features; F41.1 Generalized anxiety disorder; F41.0 Panic disorder [episodic paroxysmal anxiety]; L81.8 Other specified disorders of pigmentation; Z20.2 Contact with and (suspected) exposure to infections with a predominantly sexual mode of transmission
CPT/HCPCS: 36415; 80053; 80061; 85025; 86780; 86803; 87389

== ENCOUNTER 2024-05-28 07:10 | Inpatient (IN) | payer OTHER, SELFPAY ==
[2024-05-28] VITALS (10 sets, daily range): BP systolic 112–148; BP diastolic 67–87; PULSE 84–108; RESP 16–20; TEMP 36.3–37.6; O2SAT 95–100; BMI 30.9; BMI 31.1
--- NOTE | ~2024-05-28 | CT_ITS ---
EXAMINATION: CT ABDOMEN PELVIS WITH IV CONTRAST CLINICAL INFORMATION: abd pain COMPARISON: No prior CT available for comparison. TECHNIQUE: Multidetector volumetric imaging was performed from the superior aspect of the liver through the pubic symphysis 85 mL of Omnipaque 350 injected Sagittal and coronal reformatted images were obtained on the technologist's workstation. This CT examination was performed using dose optimization techniques as appropriate, variously including the following: *Automated exposure control *Adjustment of mA and/or kV according to patient size (this includes techniques or standardized protocols for targeted exams where dose is matched to indication/reason for exam; i.e. extremities or head) *Use of iterative reconstruction technique DLP: 638 mGy-cm FINDINGS: LOWER THORAX: Included lung bases are clear. HEPATOBILIARY: m 7 mm focal enhancing lesion in the dome of the liver on image 109 series 4 nonspecific, could be a flash enhancing adenoma, small hemangioma, AVM among others. Liver otherwise normal in size and texture. Tiny hypodensity in the right lobe of the liver 1.2 x 0.7 cm nonspecific, could be a cyst, small hemangioma among others. GALLBLADDER: Circumferential wall thickening of the gallbladder , enhancement of its wall and mild pericholecystic fluid present peter concern for possible cholecystitis. CT scan has limited dural assessing the gallbladder, may require correlation with follow-up ultrasound or HIDA scan. SPLEEN: Spleen is normal in size. PANCREAS: No focal mass or ductal dilatation. STOMACH AND GASTROINTESTINAL TRACT: Stomach is grossly unremarkable. There is no bowel distention or thickening. No CT evidence of appendicitis. ADRENALS: No adrenal nodules. KIDNEYS/URETERS: No hydronephrosis, stones or solid mass lesions. URINARY BLADDER: Partially decompressed. PELVIC VISCERA: Unremarkable PERITONEUM: No free air or fluid. LYMPH NODES: No lymphadenopathy. VASCULAR:Abdominal aorta normal in size, no aneurysm found. BONES, ABDOMINAL WALL AND SOFT TISSUES: Age-appropriate changes of the spine and skeletal system, no destructive osteolytic or osteosclerotic bone lesion found CT/CT abdomen pelvis w IV con IMPRESSION: 1. Circumferential wall thickening of the gallbladder, enhancement of its wall and mild pericholecystic fluid, raising concern for possible ACUTE CHOLECYSTITIS. Please correlate with patient's clinical exam and Surgical evaluation warranted, consider follow-up ultrasound and/or HIDA scan. 2. Subcentimeter enhancing lesion in the dome of the liver nonspecific, could be a flash enhancing adenoma, hemangioma, AVM among others. Tiny hypodensity in the right lobe of the liver 1.2 cm nonspecific, could be a cyst, hemangioma among others. Recommend correlation with follow-up ultrasound. (Referring physician staff is being called, by physician staff assistance, to be alerted of the above critical findings and recommendations.) 05/28/2024 12:03 PM CDT Electronically signed by: Fredis Christine MD 05/28/2024 01:04 PM EDT
--- NOTE | ~2024-05-28 | US_ITS ---
EXAMINATION: US ABDOMEN LIMITED CLINICAL INFORMATION: Right upper quadrant pain and vomiting. COMPARISON: None available. TECHNIQUE: Real-time imaging of the right upper quadrant abdominal viscera. FINDINGS: PANCREAS: Normal. LIVER: There is an oval-shaped echogenic focus within the right lobe of liver with appearance characteristic for hemangioma. This measures 8 x 7 x 11 mm. No intrahepatic or extrahepatic biliary dilatation. GALLBLADDER: Multiple echogenic gallstones present along with sludge. There is mild gallbladder wall thickening and possible subtle pericholecystic fluid. COMMON BILE DUCT: Normal in caliber measuring 0.39 cm in diameter. RIGHT KIDNEY: Normal. No hydronephrosis. No renal calculi or focal parenchymal lesions. The kidney measures 10.1 cm in maximum dimension. FREE FLUID: None. US/US abdomen limited IMPRESSION: 1. Findings suspicious for acute cholecystitis. 2. Echogenic focus in the right lobe of liver with appearance characteristic for hemangioma. This could be confirmed with MRI if felt clinically necessary. No prior abdominal examinations from which to compare. Electronically signed by: Jaxson Penny MD 05/28/2024 08:49 AM EDT
[2024-05-28 07:42] LABS: MANUAL DIFF FLAG NO
[2024-05-28 07:47] LABS: Basophils Absolute Auto 0.1 X10*3/uL (0.0-0.2); Basophils Percent Auto 0.4 % (0-2); Eosinophils Absolute Auto 0.1 X10*3/uL (0.0-0.4); Eosinophils Percent Auto 0.8 % (0-4); Hematocrit 39.7 % (37.0-47.0); Hemoglobin 13.2 g/dl (12.0-16.0); Imm Gran Abs Auto 0.05 X10*3/uL (0.00-0.03); Imm Gran Pct Auto 0.4 % (0.0-0.4); Lymphocytes Absolute Auto 1.9 X10*3/uL (1.2-4.9); Lymphocytes Percent Auto 14.2 % (20-40); Mean Corpuscular HGB Conc 33.2 g/dl (31.0-35.0); Mean Corpuscular Hemoglobin 29.5 pg (27.0-33.0); Mean Corpuscular Volume 88.8 fL (80.0-98.0); Mean Platelet Volume 8.7 fL (9.4-12.3); Monocytes Absolute Auto 1.1 X10*3/uL (0.1-1.2); Monocytes Percent Auto 8.3 % (2-11); Neutrophils Absolute Auto 10.4 x10*3/uL (2.0-8.3); Neutrophils Percent Auto 75.9 % (45-73); Platelet Count 247 X10*3/uL (160-400); Red Blood Count 4.47 X10*6/uL (4.20-5.50); Red Cell Distribution Width 12.9 % (11.0-16.0); White Blood Count 13.7 X10*3/uL (4.8-10.8)
[2024-05-28 07:59] LABS: Alanine Aminotransferase 11 U/L (0-31); Albumin Level 4.1 g/dL (3.5-5.0); Alkaline Phosphatase 86 U/L (39-117); Anion Gap 12 (12-20); Aspartate Amino Transferase 13 U/L (5-31); Bilirubin Direct 0.2 mg/dL (0.0-0.5); Bilirubin Total 0.7 mg/dL (0.0-1.0); Blood Urea Nitrogen 9 mg/dL (9-16); Calcium 9.2 mg/dL (8.4-10.2); Carbon Dioxide 26 mmol/L (22-29); Chloride 106 mmol/L (96-108); Creatinine Clr Calc Pharmacy 87.2; Estimated Glomerular Filt Rate > 60; Glucose Random 160 mg/dL (60-115); Lipase 10 U/L (8-78); Potassium 3.4 mmol/L (3.3-5.1); Sodium 141 mmol/L (135-145); Total Protein 7.2 g/dL (6.5-8.0)
--- NOTE | 2024-05-28 08:01 | ED.ABDPAIN ---
HPI - Abdominal Pain General Chief Complaint: Abdominal Pain Stated Complaint: Abd pain, rib pain Time Seen by Provider: 05/28/24 07:51 Source: patient Mode of arrival: ambulatory Limitations: no limitations History of Present Illness ED Provider: DR. Lagos HPI narrative: 54-year-old female with no known significant past medical history presented for evaluation of upper abdominal pain and vomiting, worse with food, feels better if she massaged her epigastric area from outside with her hands. Has been vomiting all night feels bilateral rib pain and bilateral flanks pain, no dysuria, no frequency urination, no hematuria. Last bowel movement was this morning and was normal, patient declined drinking alcohol or using drugs. past abdominal surgical history significant for C-sections. Related Data Home Medications ?Medication ?Instructions ?Recorded ?Confirmed gabapentin 400 mg capsule 400 mg PO TID 12/11/20 02/18/24 lamotrigine 100 mg tablet 100 mg PO BEDTIME 07/07/22 02/18/24 clonazepam 1 mg tablet 1.5 mg PO DAILY 12/16/22 02/18/24 venlafaxine 75 mg capsule,extended 75 mg PO DAILY 02/18/24 02/18/24 release 24 hr clonazepam 1 mg tablet 1 mg PO BEDTIME 05/28/24 Previous Rx's ?Medication ?Instructions ?Recorded semaglutide 1 mg/dose (4 mg/3 mL) 1 mg (0.75 mL) subcut QWEEK 30 05/22/24 subcutaneous pen injector days #3.75 mL Allergies Allergy/AdvReac Type Severity Reaction Status Date / Time mannitol [From ZOMETA] Allergy Severe DIFFICULTY Verified 05/28/24 07:20 SWALLOWING water for injection,sterile Allergy Severe DIFFICULTY Verified 05/28/24 07:20 [From ZOMETA] SWALLOWING zoledronic acid [From ZOMETA] Allergy Severe DIFFICULTY Verified 05/28/24 07:20 SWALLOWING latex [Latex] Allergy Intermediate RASH Verified 05/28/24 07:20 hydroxyzine [From VISTARIL] Allergy Mild SWELLING Verified 05/28/24 07:20 Review of Systems Review of Systems all other systems are reviewed and are negative Constitutional: Reports as per HPI and Reports no additional constitutional complaints Eyes: Reports as per HPI and Reports no additional eye complaints Reports system reviewed and no additional complaints, except as documented Cardiovascular: Reports as per HPI and Reports no additional cardiovascular complaints Respiratory: Reports as per HPI and Reports no additional respiratory complaints Gastrointestinal: Reports as per HPI and Reports no additional gastrointestinal complaints Genitourinary: Reports no additional female genitourinary complaints Musculoskeletal: Reports no additional musculoskeletal complaints Skin/Breast: Reports system reviewed and no additional complaints, except as docu Psychiatric: Reports no additional psychiatric complaints Endocrine: Reports no additional endocrine complaints Hematologic/Lymphatic: Reports no additional hematologic/lymphatic complaints Allergic/Immunologic: Reports no additional allergic/immunologic complaints Reports system reviewed and no additional complaints, except as documented and Reports Abnormal speech present [facility] Past Medical History Medical History (Updated 05/28/24 @ 11:10 by Onesimo Hamilton MD) Gallstones Depression Anxiety Surgical History Hx of colonoscopy History of tubal ligation Hx of right breast biopsy Hx of section Social History Social History Housing: Apartment Are you a primary career development consultant to a significant other at home: No Do you presently have visiting nurse or other home services: No Alcohol intake: never Patient Tobacco Use Status: Never used Tobacco Tobacco use type: Cigarette Years Smoked: 8 years Smoked in Last 30 Days: No e-Cigarette/Vaping Use: Never Used Use of substances other than those prescribed or required for medical reasons: No Advance Directives: No Advance Directives Information Provided: Yes Patient : No service: No Current occupational status: disabled 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 Blood pressure elevated. Heart rate elevated patient appear anxious. Respiratory rate normal. Temperature normal. Oxygen saturation normal. Appearance: Alert. Oriented X3. No acute distress. Head: Normal external exam. Normocephalic. Atraumatic. No [place] signs noted. No raccoon eyes noted Eyes: PERRLA. EOMI. Conjunctiva and sclera normal. Eyelids normal. ENT: TM's Normal. Pharynx normal. Uvula midline. Moist mucous membranes. No trismus noted. No drooling noted. No muffled voice noted. Neck: Normal inspection. Neck supple. FROM. No adenopathy. Thyroid Normal. No meningeal signs. No neck mass noted. CVS: Normal heart rate and rhythm. Heart sound normal. No murmurs noted. Pulses normal throughout. Respiratory: No respiratory distress. Painless inspiration. Breath sounds normal. No wheezes/rales/rhonchi noted. Chest nontender. No accessory muscle usage noted or decreased air movement noted. Abdomen: Soft and nontender. Bowel sounds normal in all 4 quadrants. No distention noted. No organomegaly noted. No visible injury noted. Back: No CVA tenderness. Full range of motion noted. Skin: Skin warm and dry. Normal skin color. Normal skin turgor. No rashes/lesions/lacerations noted. Extremities: No lower extremity edema. Extremities exhibit normal range of motion. Extremities nontender. Neuro: Oriented X 3. Cranial nerve exam: II-XII are grossly intact No motor deficit. No sensory deficit. Reflexes normal. Course Reevaluation(s) Reevaluation #1: upper abdominal pain with vomiting and leukocytosis, patient was leukocytosis patient do not meet criteria of sepsis elevated heart rate initially was because of patient's anxiety improved after patient took clonazepam that she normally takes at home for anxiety, covered with Zosyn, awaiting for Dr. Hamilton to evaluate in the emergency department and final disposition. Time: 10:08 Reevaluation #2: Seen and evaluated by Dr. Hamilton at the bedside requested abdomen and pelvis CT with IV contrast. CT was reviewed and consistent with acute cholecystitis. Time: 13:29 Medical Decision Making Differential Diagnosis Differential Diagnoses: The differential diagnosis associated with the presentation includes ( Gastritis, pancreatitis, acute cholecystitis, cholelithiasis, electrolyte derangement, dehydration, , UTI.) Admission/Observation Consideration of admission/observation: Escalation of care including admission/observation considered Consult Healthcare Provider Management of the patient was discussed with: Bean Weigher ( Dr. Hamilton) Lab Data MDM Lab Attestation statement: I reviewed the patient's lab results. 05/28/24 07:40 05/28/24 07:40 Labs: Lab Results 05/28/24 05/28/24 Range/Units 07:40 10:12 WBC 13.7 H (4.8-10.8) X10*3/uL RBC 4.47 (4.20-5.50) X10*6/uL Hgb 13.2 (12.0-16.0) g/dl Hct 39.7 (37.0-47.0) % MCV 88.8 (80.0-98.0) fL MCH 29.5 (27.0-33.0) pg MCHC 33.2 (31.0-35.0) g/dl RDW 12.9 (11.0-16.0) % Plt Count 247 (160-400) X10*3/uL MPV 8.7 L (9.4-12.3) fL Immature Gran % (Auto) 0.4 (0.0-0.4) % Neut % (Auto) 75.9 H (45-73) % Lymph % (Auto) 14.2 L (20-40) % [place] % (Auto) 8.3 (2-11) % Eos % (Auto) 0.8 (0-4) % Baso % (Auto) 0.4 (0-2) % Lymph # (Auto) 1.9 (1.2-4.9) X10*3/uL [place] # (Auto) 1.1 (0.1-1.2) X10*3/uL Eos # (Auto) 0.1 (0.0-0.4) X10*3/uL Baso # (Auto) 0.1 (0.0-0.2) X10*3/uL Abs Immat Gran (auto) 0.05 H (0.00-0.03) X10*3/uL Absolute Neuts (auto) 10.4 H (2.0-8.3) x10*3/uL Absolute Nucleated RBC 0.000 (0.0-0.012) X10*3/uL Nucleated RBC % (auto) 0.0 (0.0-0.2) /100WBC Sodium 141 (135-145) mmol/L Potassium 3.4 (3.3-5.1) mmol/L Chloride 106 (96-108) mmol/L Carbon Dioxide 26 (22-29) mmol/L Anion Gap 12 (12-20) BUN 9 (9-16) mg/dL Creatinine 0.78 (0.5-1.4) mg/dL Estim Creat Clear Calc 87.2 Estimated GFR > 60 Random Glucose 160 H (60-115) mg/dL Lactic Acid 1.1 (0.5-2.0) mmol/L Calcium 9.2 (8.4-10.2) mg/dL Total Bilirubin 0.7 (0.0-1.0) mg/dL Direct Bilirubin 0.2 (0.0-0.5) mg/dL AST 13 (5-31) U/L ALT 11 (0-31) U/L Alkaline Phosphatase 86 (39-117) U/L Total Protein 7.2 (6.5-8.0) g/dL Albumin 4.1 (3.5-5.0) g/dL Lipase 10 (8-78) U/L Beta HCG, Quant 6 mIU/mL Urine Color Yellow Urine Appearance Clear Urine pH 8.0 (5.0-9.0) Ur Specific [place] 1.010 (1.005-1.025) Urine Protein Negative (Neg-Trace) mg/dL Urine Glucose (UA) Negative (Negative) mg/dL Urine Ketones Trace (Negative) mg/dL Urine Blood Negative (Negative) Urine Nitrite Negative (Negative) Ur Leukocyte Esterase Negative (Negative) Independent Interpretation I performed an independent interpretation of an: Ultrasound ( abdominal ultrasound::1. Findings suspicious for acute cholecystitis. 2. Echogenic focus in the right lobe of liver with appearance characteristic for hemangioma. This could be confirmed with MRI if felt clinically necessary. No prior abdominal examinations from which to compare.) and CT Scan ( Abdomen and pelvis:1. Circumferential wall thickening of the gallbladder, enhancement of its wall and mild pericholecystic fluid, raising concern for possible ACUTE CHOLECYSTITIS. Please correlate with patient's clinical exam and Surgical evaluation warranted, consider follow-up ultrasound and) Radiology Impression Discussion of test interpretation with radiology: I have reviewed the radiologist's reading. Medications Administered Discontinued Medications Generic Name Dose Route Start Last Admin Trade Name Freq PRN Reason Stop Dose Admin Al Hydroxide/Mg Hydroxide 30 ml 05/28/24 07:58 05/28/24 08:38 Magnesium Hydrox/Alum Hydrox 30 Ml Oral.Susp PO 05/28/24 07:59 30 ml ONCE ONE Administration Clonazepam 1 mg 05/28/24 08:52 05/28/24 08:59 Clonazepam 1 Mg Tablet PO 05/28/24 08:53 1 mg ONCE ONE Administration Famotidine 20 mg 05/28/24 07:58 05/28/24 08:38 Famotidine/Pf 20 Mg/2 Ml Vial IVPUSH 05/28/24 07:59 20 mg ONCE ONE Administration Sodium Chloride 1,000 mls @ 999 mls/hr 05/28/24 07:59 05/28/24 10:06 Ns IV 05/28/24 08:59 Infused .Q1H1M ONE Infusion Piperacillin Sod/Tazobactam 50 mls @ 100 mls/hr 05/28/24 09:13 05/28/24 12:55 Sod 3.375 gm/ Sodium Chloride IV 05/28/24 09:42 Infused ONCE ONE Infusion Iohexol 100 ml 05/28/24 11:33 05/28/24 11:33 Iohexol 350 Mg/Ml 100 Ml Infus..Btl IV 05/28/24 11:34 85 ml ONCE ONE Administration Morphine Sulfate 1 mg 05/28/24 09:00 05/28/24 10:25 Morphine Sulfate 2 Mg/Ml Cartridge IVPUSH 05/28/24 09:01 1 mg ONCE ONE Administration Protocol Ondansetron HCl 4 mg 05/28/24 07:58 05/28/24 08:38 Ondansetron Hcl 4 Mg/2 Ml Vial IVPUSH 05/28/24 07:59 4 mg ONCE ONE Administration Discharge Plan Discharge Clinical Impression: Acute cholecystitis Patient Disposition: Admitted As Inpatient Print Language: Kinyarwanda
[2024-05-28] MEDS: 0.9 % Sodium Chloride 1,000 ML 999 ML IV (08:38)
[2024-05-28] MEDS: ondansetron HCL 4 MG/2 ML VIAL IVPUSH ×2 (08:38→16:29)
[2024-05-28] MEDS: Magnesium Hydrox/Alum Hydrox 30 ML ORAL.SUSP PO (08:38)
[2024-05-28] MEDS: Famotidine/PF 20 MG/2 ML VIAL IVPUSH (08:38)
[2024-05-28] MEDS: clonazePAM 1 MG TABLET PO ×2 (08:59→21:22)
[2024-05-28 10:20] LABS: Appearance Urine Clear; Color Urine Yellow; Glucose Urine UA Negative (Negative); Leukocyte Esterase Urine Negative (Negative); Nitrite Urine Negative (Negative); Urine Blood Negative (Negative); Urine Ketones Trace mg/dL (Negative); Urine Protein Negative (Neg-Trace)
[2024-05-28] MEDS: Morphine Sulfate 2 MG/ML CARTRIDGE 1 MG IVPUSH (10:25)
[2024-05-28] MEDS: Piperacillin Sodium/Tazobactam 3.375 GM in 0.9 % Sodium Chloride 50 ML IV ×3 (10:25→21:22)
[2024-05-28 10:32] LABS: Lactic Acid 1.1 mmol/L (0.5-2.0)
[2024-05-28 10:53] LABS: HCG Quantitative 6 mIU/mL
--- NOTE | 2024-05-28 11:08 | PM.HPGS ---
History of Present Illness History of Present Illness Date of Service: 05/30/24 Chief complaint: Aute Cholecystitis Narrative: Daxa Bauman is a 54 year old female here in the ER because of the abdominal pain. She says this started 2 nights ago. She says that this was on the upper abdomen but seemed to be both on the left and right side. She says that this rotated the back. However, she says that this seemed to have localized on the right upper quadrant. She says that this radiates all the way to the back. She denies any nausea or vomiting. She has known constipation and is being followed by Gastroenterology for this She says she has anxiety and depression but otherwise denies any other significant medical problems. Review of Systems Constitutional: Constitutional: Denies chills and Denies fever(s) Cardiovascular: Cardiovascular: Denies chest pain, Denies dyspnea and Denies dyspnea on exertion Respiratory: Respiratory: Denies cough, Denies dyspnea and Denies dyspnea on exertion Gastrointestinal: Gastrointestinal: Denies hematochezia and Denies change in bowel habits Genitourinary: Genitourinary: Denies hematuria Musculoskeletal: Musculoskeletal: Denies back pain and Denies limited range of motion Neurologic: Denies focal weakness and Denies convulsions Psychiatric: Psychiatric: Denies depression and Denies mood swings PMFSH Past Medical History Medical History (Updated 05/28/24 @ 11:10 by Onesimo Hamilton MD) Gallstones Depression Anxiety Surgical History Surgical History Hx of colonoscopy History of tubal ligation Hx of right breast biopsy Hx of section Social History Social History Household Members: None Housing: House Are you a primary student career development specialist to a significant other at home: No Do you presently have visiting nurse or other home services: No Alcohol intake: never Comment: counts correct Patient Tobacco Use Status: Current everyday Tobacco user Tobacco use type: Smokeless Tobacco Years Smoked: 8 years Smoked in Last 30 Days: No e-Cigarette/Vaping Use: Currently Using Frequency of e-Cigarette/Vaping Use: daily Second Hand Smoke Exposure: No Use of substances other than those prescribed or required for medical reasons: No Currently Displaying Signs/Symptoms of Drug Intoxication Withdrawal: No Have you been hit, kicked, punched, or otherwise hurt by someone within the past year? If so, by whom?: No Do you feel safe in your current relationship?: No Is there a partner from a previous relationship who is making you feel unsafe now?: No Are you made to feel afraid or neglected: No Are you DNR?: No Advance Directives: No Advance Directives Information Provided: Yes Advance Directives on File: No Do you have a plan to hurt others: No Plan Recently lost weight without trying: No Eating poorly because of decreased appetite: No Nutrition Risks: No Nutritional Risk Patient : No : No Poor oral hygiene: No service: No Current occupational status: disabled 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 Cognitive needs: No Hearing needs: No Vision needs: No Meds Allergies Allergy/AdvReac Type Severity Reaction Status Date / Time mannitol [From ZOMETA] Allergy Severe DIFFICULTY Verified 05/28/24 07:20 SWALLOWING water for injection,sterile Allergy Severe DIFFICULTY Verified 05/28/24 07:20 [From ZOMETA] SWALLOWING zoledronic acid [From ZOMETA] Allergy Severe DIFFICULTY Verified 05/28/24 07:20 SWALLOWING latex [Latex] Allergy Intermediate RASH Verified 05/28/24 07:20 hydroxyzine [From VISTARIL] Allergy Mild SWELLING Verified 05/28/24 07:20 Home Medications ?Medication ?Instructions ?Recorded ?Confirmed ?Last Taken ?Type gabapentin 400 mg capsule 400 mg PO TID 12/11/20 05/28/24 05/27/24 History lamotrigine 100 mg tablet 100 mg PO BEDTIME 07/07/22 05/28/24 05/27/24 History clonazepam 1 mg tablet 0.5 mg PO DAILY@1600 12/16/22 05/28/24 05/27/24 History venlafaxine 75 mg capsule,extended 75 mg PO BEDTIME 02/18/24 05/28/24 05/27/24 History release 24 hr clonazepam 1 mg tablet 1 mg PO BID 05/28/24 05/28/24 05/27/24 History ibuprofen 200 mg tablet 400 mg PO Q8H PRN Pain 05/28/24 05/28/24 Unknown History Physical Exam Vital Signs: Vital Signs: Last Vital Signs Temp 98.4 F 05/28/24 07:17 Pulse 88 05/28/24 10:28 Resp 20 05/28/24 10:28 BP 147/79 H 05/28/24 10:28 Pulse Ox 100 05/28/24 10:28 O2 Del Method Room Air 05/28/24 10:28 BMI result Body Mass Index 30.9 Const: General: comfortable and no acute distress Orientation/consciousness: patient oriented x3 Neck: Neck: Yes no lymphadenopathy Resp: Auscultation: clear to auscultation bilaterally Cardio: Rhythm: regular rhythm GI: Other: Mild tenderness on the right upper quadrant, no Aiken's sign Palpation (GI): Soft to palpation, nontender and no guarding Neuro: General: patient oriented x3 Results Results Labs: Short CBC 05/28/24 Range/Units 07:40 WBC 13.7 H (4.8-10.8) X10*3/uL Hgb 13.2 (12.0-16.0) g/dl Hct 39.7 (37.0-47.0) % Plt Count 247 (160-400) X10*3/uL BMP 05/28/24 07:40 Sodium 141 Potassium 3.4 Chloride 106 Carbon Dioxide 26 BUN 9 Creatinine 0.78 Calcium 9.2 Liver Function 05/28/24 Range/Units 07:40 Total Bilirubin 0.7 (0.0-1.0) mg/dL Direct Bilirubin 0.2 (0.0-0.5) mg/dL AST 13 (5-31) U/L ALT 11 (0-31) U/L Alkaline Phosphatase 86 (39-117) U/L Albumin 4.1 (3.5-5.0) g/dL Urine 05/28/24 Range/Units 10:12 Urine Color Yellow Urine Appearance Clear Urine pH 8.0 (5.0-9.0) Ur Specific [place] 1.010 (1.005-1.025) Urine Protein Negative (Neg-Trace) mg/dL Urine Glucose (UA) Negative (Negative) mg/dL Abdominal ultrasound report/results: report reviewed and image reviewed Assessment and Plan (1) Gallstones: Status: Acute She describes pain on the upper abdomen for the past 2 days but now says that this is mostly in the right upper quadrant. She does have some mild tenderness on deep palpation. She had an ultrasound showing multiple gallstones with mild gallbladder wall thickening. This suggestive of mild acute cholecystitis She has a CT scan pending so we will review this as well. Otherwise, I explained to her that it may be best for her to be admitted. She was started on antibiotics and I reviewed with the option of proceeding with cholecystectomy for cholecystitis. I discussed the technique of laparoscopic cholecystectomy and possible open cholecystectomy. I reviewed the risks including but not limited to bleeding, infections, injury to other organs including bowel, liver and the bile ducts, retained stones, bile leak, as well as the benefits and alternatives. Her LFTs are unremarkable. Quality Stroke Does the patient have a stroke diagnosis?: No VTE Prior VTE?: No VTE Risk Level:: Medical - moderate - high VTE Device Contraindication: N/A - Device Ordered VTE Drug Contraindication: N/A - Med Ordered Procedures Date of Service Date of Service: 05/30/24
[2024-05-28] MEDS: iohexoL 350 MG/ML 100 ML INFUS..BTL IV (11:33)
[2024-05-28] MEDS: Morphine Sulfate 2 MG/ML CARTRIDGE IVPUSH (13:36)
--- NOTE | 2024-05-28 13:41 | PC.NURSE ---
assumed care of pt at 1100, a&ox4, hypertensive, other vss. 20G PIV L AC. pt pending admission orders - per Alfonso, waiting for CT scan results. pt reporting increased pain, ED provider notified. pt medicated per NOV for 05/16 abd pain.
--- NOTE | 2024-05-28 15:47 | PHA.MEDREC ---
Addendum entered by Farhan Santos [facility] 05/28/24 16:52: MED REC CHECKED BY [facility] Original Note: Pharmacy Consult ? Medication Reconciliation Pharmacy has completed the medication reconciliation.
[2024-05-28] MEDS: Morphine Sulfate 4 MG/ML CARTRIDGE 3 MG IVPUSH ×3 (16:29→22:06)
[2024-05-28] MEDS: 0.9 % Sodium Chloride Flush 3 ML SYRINGE IVFLUSH (16:30)
[2024-05-28] MEDS: Lactated Ringers 1,000 ML 100 ML IVCONT (17:06)
[2024-05-28] MEDS: Acetaminophen 325 MG TABLET 650 MG PO (18:24)
[2024-05-28] MEDS: clonazePAM 0.5 MG TABLET PO (18:25)
[2024-05-28] MEDS: Calcium Carbonate 750 MG TAB.CHEW PO (18:25)
[2024-05-28] MEDS: Ketorolac Tromethamine 15 MG/ML VIAL IVPUSH (19:05)
--- NOTE | 2024-05-28 19:28 | PC.NURSE ---
late note, pt continues to report breakthrough abd pain. pain now mostly epigastric/LUQ pain/headache. pt medicated w PRN medication for epigastric/heartburn type pain, and tylenol for 3/[address] Hamilton, verbal order to increase morphine to 3mg q2 for severe 7-10 pain, and add toradol 15mg IVP q6h for moderate pain, MAR adjusted per verbal order. pt medicated w MAR for 7/10 pain w morphine, pt also requesting toradol to help w inflammation/pain despite pain scale rating higher than protocol.
[2024-05-28] MEDS: lamoTRIgine 100 MG TABLET PO (21:22)
[2024-05-28] MEDS: Venlafaxine HCl ER 75 MG CAP.ER.24H PO (21:22)
[2024-05-28] MEDS: Gabapentin 400 MG CAPSULE PO (21:22)
[2024-05-29] VITALS (11 sets, daily range): BP systolic 83–145; BP diastolic 53–86; PULSE 88–122; RESP 16–20; TEMP 36.1–37.6; O2SAT 93–98
[2024-05-29] MEDS: Acetaminophen 325 MG TABLET 650 MG PO (01:26)
[2024-05-29] MEDS: Piperacillin Sodium/Tazobactam 3.375 GM in 0.9 % Sodium Chloride 50 ML IV ×4 (03:10→21:27)
[2024-05-29] MEDS: Lactated Ringers 1,000 ML 100 ML IVCONT ×2 (03:10→13:30)
[2024-05-29] MEDS: Morphine Sulfate 4 MG/ML CARTRIDGE 3 MG IVPUSH ×3 (05:59→18:24)
[2024-05-29] MEDS: 0.9 % Sodium Chloride Flush 3 ML SYRINGE IVFLUSH (08:09)
[2024-05-29] MEDS: Gabapentin 400 MG CAPSULE PO ×3 (08:09→20:15)
[2024-05-29] MEDS: clonazePAM 1 MG TABLET PO ×2 (08:09→20:15)
--- NOTE | 2024-05-29 09:15 | PM.PNGS ---
Subjective Subjective Date of Service: 05/29/24 Interval history: Continues to have pain epigastric area Very anxious No vomiting No fever Physical Exam Vital Signs: Vital Signs: Last Vital Signs Temp 98.3 F 05/29/24 07:17 Pulse 122 H 05/29/24 07:17 Resp 18 05/29/24 07:17 BP 124/83 05/29/24 07:17 Pulse Ox 98 05/29/24 07:17 O2 Del Method Room Air 05/29/24 07:17 BMI result Body Mass Index 31.1 Const: Other: Very anxious Resp: Effort & Inspection: normal respiratory effort Cardio: Rate: tachycardic GI: Other: Some tenderness epigastric area right upper quadrant Objective Data Active Medications Acetaminophen (Acetaminophen 325 Mg Tablet) 650 mg PO Q6H PRN PRN Reason: Pain, Mild (Pain Scale 1-3), fever or headache Last Admin: 05/29/24 01:26 Dose: 650 mg Documented By: LAUREN Calcium Carbonate (Calcium Carbonate 750 Mg Tab.Chew) 750 mg PO Q4H PRN PRN Reason: Heartburn Last Admin: 05/28/24 18:25 Dose: 750 mg Documented By: JAZZY Clonazepam (Clonazepam 1 Mg Tablet) 1 mg PO BID [facility] Last Admin: 05/29/24 08:09 Dose: 1 mg Documented By: SB Clonazepam (Clonazepam 0.5 Mg Tablet) 0.5 mg PO DAILY@1600 [facility] Last Admin: 05/28/24 18:25 Dose: 0.5 mg Documented By: JAZZY Gabapentin (Gabapentin 400 Mg Capsule) 400 mg PO TID [facility] Last Admin: 05/29/24 08:09 Dose: 400 mg Documented By: SB Lactated Ringer's (Lr) 1,000 mls @ 100 mls/hr IVCONT .Q10H [facility] Last Admin: 05/29/24 03:10 Dose: 100 mls/hr Documented By: CASTILPoly Piperacillin Sod/Tazobactam (Sod 3.375 gm/ Sodium Chloride) 50 mls @ 100 mls/hr IV Q6H [facility] Last Admin: 05/29/24 08:50 Dose: 100 mls/hr Documented By: SB Ketorolac Tromethamine (Ketorolac Tromethamine 15 Mg/Ml Vial) 15 mg IVPUSH Q6H PRN PRN Reason: Pain, Moderate(Pain Scale 4-6) Stop: 06/02/24 18:49 Last Admin: 05/28/24 19:05 Dose: 15 mg Documented By: JAZZY Lamotrigine (Lamotrigine 100 Mg Tablet) 100 mg PO BEDTIME [facility] Last Admin: 05/28/24 21:22 Dose: 100 mg Documented By: NONA Melatonin (Melatonin 3 Mg Tablet) 6 mg PO BEDTIME PRN PRN Reason: Insomnia Morphine Sulfate (Morphine Sulfate 4 Mg/Ml Cartridge) 3 mg IVPUSH Q2H PRN; Protocol PRN Reason: Pain, Severe (Pain Scale 7-10) Last Admin: 05/29/24 08:10 Dose: 3 mg Documented By: SB Ondansetron HCl (Ondansetron Hcl 4 Mg/2 Ml Vial) 4 mg IVPUSH Q6H PRN PRN Reason: nausea Last Admin: 05/28/24 16:29 Dose: 4 mg Documented By: JAZZY Sodium Chloride (0.9 % Sodium Chloride Flush 3 Ml Syringe) [facility] Last Admin: 05/29/24 08:09 Dose: 3 ml Documented By: SB Venlafaxine HCl (Venlafaxine Hcl Er 75 Mg Cap.Er.24h) 75 mg PO BEDTIME [facility] Last Admin: 05/28/24 21:22 Dose: 75 mg Documented By: NONA Labs 05/28/24 07:40 05/28/24 07:40 Labs: Laboratory Results - last 24 hr 05/28/24 05/28/24 07:40 10:12 Lactic Acid 1.1 Beta HCG, Quant 6 Urine Color Yellow Urine Appearance Clear Urine pH 8.0 Ur Specific [place] 1.010 Urine Protein Negative Urine Glucose (UA) Negative Urine Ketones Trace Urine Blood Negative Urine Nitrite Negative Ur Leukocyte Esterase Negative Procedures Date of Service Date of Service: 05/29/24 Progress Note: A&P Assessment and plan (1) Acute cholecystitis: Status: Acute Assessment and Plan: CT scan consistent with acute cholecystitis Continues to have pain She wants to proceed with cholecystectomy Reviewed technique of laparoscopic cholecystectomy and possible open She understands the risks, benefits, and alternatives She has given consent Added onto the OR schedule for today Time Spent With Patient Time: Total time managing care of this patient today ____ minutes. Quality Stroke Does the patient have a stroke diagnosis?: No VTE Prior VTE?: No VTE Risk Level:: Medical - moderate - high VTE Device Contraindication: N/A - Device Ordered VTE Drug Contraindication: N/A - Med Ordered
--- NOTE | 2024-05-29 10:22 | PC.NURSE ---
labs ordered at 0824, still not collected upon 0900 arrival to preop. phlebotomy notified via short stay tiger connect. Per Dr. Hamilton labs can be drawn post procedure as to not delay surgery. phlebotomy aware.
--- NOTE | 2024-05-29 12:07 | W.PM.OPN ---
Operative Note Operative Note Date of Service: 05/29/24 Narrative: Preop diagnosis: Acute calculous cholecystitis Postop diagnosis: Acute calculous cholecystitis, with hydrops of the gallbladder, purulent gallbladder contents, markedly inflamed and indurated gallbladder Procedure: Laparoscopic cholecystectomy Surgeon: Onesimo Hamilton MD head start assistant teacher: RUBIA Bob The patient is a 54-year-old female admitted yesterday because of upper abdominal pain with imaging studies show an acute cholecystitis. She understood the technique of laparoscopic cholecystectomy. She was aware of the risks, benefits, and alternatives She was brought to the operating room. She was placed supine under general anesthesia via endotracheal tube. The abdomen was prepped and draped in the usual sterile fashion. A surgical time-out was done. The patient was receiving scheduled IV antibiotics I made a short incision on the supraumbilical margin with a blade 15. This was carried down through the full-thickness of the skin and subcutaneous fat down to the fascia. The fascia was incised. The peritoneum was entered. Pneumoperitoneum was applied to pressure of 15 mm Hg through the García port. With laparoscopic visualization using a 10 mm 0 degree scope, inserted a 5/12 mm port in the epigastric area below the subcostal margin. Two 5 mm ports were introduced a small incision below the subcostal margin along the anterior axillary line and the midclavicular line. Graspers were placed through these working ports. The patient was placed in a head up and [id number] position The gallbladder fundus was visualized. However there was note of a lot of omental adhesions surrounding the anterior wall of the gallbladder. The gallbladder was very distended and indurated. We therefore had to aspirate this with the aspirating needle to decompress. Whitish fluid was aspirated and no bile was seen. This was consistent with gallbladder hydrops I was therefore able to apply a grasper at the fundus and this was used to retract the gallbladder cephalad. We had to do a lot of careful blunt dissection of the adherent omentum surrounding the anterior wall of the gallbladder. We encountered oozing because of this. Eventually as able to clear the entire anterior wall of the gallbladder. I was able to apply another grasper towards the pouch. We put the gallbladder in a cephalad and lateral retraction to put the area of the cyst duct on stretch. The gallbladder wall was very thickened with inflammatory rind. We had to do careful dissection with the [place] dissector to define the neck and carefully teased off all this inflammatory and fibrotic tissue surrounding the neck. This part of the procedure took an extended period time and until we are able to clearly identify the cystic duct. We achieved circumferential dissection with the [place] dissector. Was able to confirm the confluence of the cystic duct with the neck of the gallbladder. There were no other structures in the area of the hepatocystic triangle. We were unable to visualize the cystic artery. With confluence of the neck of the gallbladder with the cystic duct achieved, I applied clips on the cystic with 2 clips being applied distally. The cystic duct was transected between clips with Endo scissors We retraction of the gallbladder away from the liver, I proceeded then gently dissect the hilum with the [place] dissector to make sure that we were able to identify the cystic artery. Even with careful dissection, we were not able to identify the cystic artery had also it was likely that this may have been clipped along with the cystic duct. I was able to reach the interface of the gallbladder wall and the liver bed. Again the area was very markedly inflamed and thickened with acutely fibrotic tissue. I used the L hook electrocautery to carefully dissect the interface of the gallbladder wall and the liver bed and define a plane of dissection. In view of the marked inflammatory changes, we were really unable to find any plane at all so we had to proceed very slowly and mm by mm fashion. We encountered significant bleeding throughout the dissection because of the acute inflammatory changes. At some point, we had noted an area of bleeding from the capsule of the gallbladder adjacent to the falciform ligament likely due to traction. We used electrocautery to achieve hemostasis and we applied Surgicel on the area We then proceeded to continue to separate the gallbladder from the liver bed. We continued to encounter significant bleeding throughout the dissection and we had to periodically irrigated and suctioned out oozing areas. We used electrocautery periodically to cauterized any oozing from the rind as well as from the liver bed. At some point, the lumen of the gallbladder was entered. We could see multiple gallstones. There was note of pus in the area as well and some of this had spilled outside of the lumen. Eventually, I was able to reach the fundus and completely this from the liver bed. We retrieved the gallbladder through an endobag the umbilical incision. I reinserted all ports and re-insufflated I had to do a lot of copious irrigation because of the clots in the area. I suctioned out all the irrigant fluid and removed the clots. I applied additional Surgicel on the liver bed to achieve hemostasis. We observed for several minutes. Once hemostasis was confirmed, I proceeded to then examined the rest of the quadrants of the peritoneal cavity. There was no evidence of any other pathology. No evidence of any bowel injury We observed the liver bed. There was note of good hemostasis. I positioned a #10 JUAN drain under the liver bed because of the oozing as well as because of the purulent cholecystitis. This JUAN drain was brought out through the lateral most port site on the right and secured to the skin with nylon 3-0 sutures We observed the hepatic space. Once hemostasis was confirmed, I proceeded to desufflated the port sites. I then removed all ports under vision with the laparoscope. The umbilical port was removed last The fascia of the umbilical incision was closed with a [id number] Polysorb 0 stitch. Skin closure was achieved on all incisions using Polysorb 4-0 subcuticular running sutures. Steri-Strips and dressings were applied. All incisions were infiltrated with Marcaine 0.5% for postop analgesia and the procedure was completed The patient tolerated the procedure well. There were no immediate complications. Initial and final counts of sponges and instruments were correct. Estimated blood loss about 200 cc. The patient was extubated without difficulty and transferred to the recovery room with stable vital signs
--- NOTE | 2024-05-29 15:19 | PC.NURSE ---
Patient JUAN drain noted to be draining at incision site, staining noted on dressing and large portion on bed sheet, bloody/serosangous drainage. New dressing placed around JUAN drain, bedding changed. Dr. Hamilton made aware. MD at patients bedside. No new orders.
[2024-05-29] MEDS: clonazePAM 0.5 MG TABLET PO (15:54)
--- NOTE | 2024-05-29 15:56 | MHC.CM.PN ---
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
--- NOTE | 2024-05-29 15:58 | PM.EVENT ---
Event Note Date of Service: 05/29/24 Event Note: Seen postop Underwent laparoscopic cholecystectomy earlier with very inflamed, indurated, hydropic gallbladder with purulent gallbladder contents She says she feels ?great? Feels much better after the procedure Pain well controlled Stable vital signs Dressings so earlier around the drain sites that this had been changed, currently dry JUAN drain with dark serosanguineous output, old blood Doing well postoperatively Pain management Discussed with her mom Time Spent With Patient Time: Total time managing care of this patient today ____ minutes.
[2024-05-29] MEDS: Venlafaxine HCl ER 75 MG CAP.ER.24H PO (20:15)
[2024-05-29] MEDS: lamoTRIgine 100 MG TABLET PO (20:15)
[2024-05-29] MEDS: oxyCODONE HCl Immed Release 5 MG TABLET PO (20:15)
[2024-05-30] MEDS: Lactated Ringers 1,000 ML 100 ML IVCONT ×2 (00:18→11:35)
[2024-05-30 02:05] VITALS: BP 112/64; PULSE 94; RESP 16; O2SAT 96
[2024-05-30] MEDS: Morphine Sulfate 4 MG/ML CARTRIDGE 3 MG IVPUSH ×5 (02:07→22:37)
[2024-05-30] MEDS: Piperacillin Sodium/Tazobactam 3.375 GM in 0.9 % Sodium Chloride 50 ML IV ×4 (02:17→22:03)
[2024-05-30 03:45] VITALS: BP 98/56; PULSE 104; RESP 20; TEMP 36.7; O2SAT 93
[2024-05-30 05:40] LABS: MANUAL DIFF FLAG NO
[2024-05-30 05:50] LABS: Basophils Percent Auto 0.2 % (0-2); Hematocrit 31.3 % (37.0-47.0); Hemoglobin 10.3 g/dl (12.0-16.0); Imm Gran Abs Auto 0.07 X10*3/uL (0.00-0.03); Imm Gran Pct Auto 0.6 % (0.0-0.4); Lymphocytes Absolute Auto 1.8 X10*3/uL (1.2-4.9); Lymphocytes Percent Auto 14.3 % (20-40); Mean Corpuscular HGB Conc 32.9 g/dl (31.0-35.0); Mean Corpuscular Hemoglobin 30.2 pg (27.0-33.0); Mean Corpuscular Volume 91.8 fL (80.0-98.0); Mean Platelet Volume 9.2 fL (9.4-12.3); Neutrophils Absolute Auto 9.6 x10*3/uL (2.0-8.3); Neutrophils Percent Auto 76.9 % (45-73); Platelet Count 211 X10*3/uL (160-400); Red Blood Count 3.41 X10*6/uL (4.20-5.50); Red Cell Distribution Width 12.9 % (11.0-16.0); White Blood Count 12.5 X10*3/uL (4.8-10.8)
[2024-05-30 07:27] VITALS: BP 123/70; PULSE 98; RESP 95; TEMP 37.1; O2SAT 97
--- NOTE | 2024-05-30 08:25 | HO.POSTANES ---
Post Anesthesia Evaluation Post Anesthesia Evaluation Date of Service: 05/29/24 Vital Signs: Vital Signs Temp Pulse Resp BP Pulse Ox O2 Del Method 05/30/24 07:27 98.7 F 98 95 H 123/70 97 Room Air 05/30/24 03:45 98.1 F 104 H 20 98/56 L 93 Room Air 05/30/24 02:05 94 16 112/64 96 Room Air Anesthesia: General Endotracheal-GETA Mental Status: Awake Pain Control: Satisfactory Nausea/Vomiting: None Hydration: Adequate
--- NOTE | 2024-05-30 09:54 | PM.PNGS ---
Subjective Subjective Date of Service: 05/31/24 Interval history: Says she had a good night Feels well this morning Tolerating diet Pain level okay Physical Exam Vital Signs: Vital Signs: Last Vital Signs Temp 98.7 F 05/30/24 07:27 Pulse 98 05/30/24 07:27 Resp 95 H 05/30/24 07:27 BP 123/70 05/30/24 07:27 Pulse Ox 97 05/30/24 07:27 O2 Del Method Room Air 05/30/24 07:27 O2 Flow Rate 1 05/29/24 13:22 BMI result Body Mass Index 31.1 Const: Other: Looks well General: comfortable and no acute distress Eyes: Other: Anicteric Resp: Effort & Inspection: normal respiratory effort Cardio: Rate: regular rate GI: Other: Soft, dressings dry, JUAN drain with thick old blood Objective Data Active Medications Acetaminophen (Acetaminophen 325 Mg Tablet) 650 mg PO Q6H PRN PRN Reason: Pain, Mild (Pain Scale 1-3), fever or headache Last Admin: 05/29/24 01:26 Dose: 650 mg Documented By: LAUREN Calcium Carbonate (Calcium Carbonate 750 Mg Tab.Chew) 750 mg PO Q4H PRN PRN Reason: Heartburn Last Admin: 05/28/24 18:25 Dose: 750 mg Documented By: JAZZY Clonazepam (Clonazepam 1 Mg Tablet) 1 mg PO BID [facility] Last Admin: 05/29/24 20:15 Dose: 1 mg Documented By: DARLIN Clonazepam (Clonazepam 0.5 Mg Tablet) 0.5 mg PO DAILY@1600 [facility] Last Admin: 05/29/24 15:54 Dose: 0.5 mg Documented By: RORO Gabapentin (Gabapentin 400 Mg Capsule) 400 mg PO TID [facility] Last Admin: 05/29/24 20:15 Dose: 400 mg Documented By: DARLIN Lactated Ringer's (Lr) 1,000 mls @ 100 mls/hr IVCONT .Q10H [facility] Last Admin: 05/30/24 00:18 Dose: 100 mls/hr Documented By: DARLIN Piperacillin Sod/Tazobactam (Sod 3.375 gm/ Sodium Chloride) 50 mls @ 100 mls/hr IV Q6H [facility] Last Infusion: 05/30/24 02:48 Dose: Infused Documented By: DARLIN Lamotrigine (Lamotrigine 100 Mg Tablet) 100 mg PO BEDTIME [facility] Last Admin: 05/29/24 20:15 Dose: 100 mg Documented By: DARLIN Melatonin (Melatonin 3 Mg Tablet) 6 mg PO BEDTIME PRN PRN Reason: Insomnia Morphine Sulfate (Morphine Sulfate 4 Mg/Ml Cartridge) 3 mg IVPUSH Q3H PRN; Protocol PRN Reason: Pain, Severe (Pain Scale 7-10) Last Admin: 05/30/24 06:25 Dose: 3 mg Documented By: ANNMARIE Ondansetron HCl (Ondansetron Hcl 4 Mg/2 Ml Vial) 4 mg IVPUSH Q6H PRN PRN Reason: nausea Last Admin: 05/28/24 16:29 Dose: 4 mg Documented By: MADDENLorraine Oxycodone HCl (Oxycodone Hcl Immed Release 5 Mg Tablet) 5 mg PO Q4H PRN PRN Reason: Pain, Moderate(Pain Scale 4-6) Last Admin: 05/29/24 20:15 Dose: 5 mg Documented By: DARLIN Sodium Chloride (0.9 % Sodium Chloride Flush 3 Ml Syringe) [facility] Last Admin: 05/30/24 00:20 Dose: Not Given Documented By: DALRIN Non-Admin Reason: IV Running Venlafaxine HCl (Venlafaxine Hcl Er 75 Mg Cap.Er.24h) 75 mg PO BEDTIME [facility] Last Admin: 05/29/24 20:15 Dose: 75 mg Documented By: DARLIN Labs 05/30/24 05:08 05/28/24 07:40 Labs: Laboratory Results - last 24 hr 05/30/24 05:08 MCV 91.8 MCH 30.2 MCHC 32.9 RDW 12.9 Plt Count 211 MPV 9.2 L Immature Gran % (Auto) 0.6 H Neut % (Auto) 76.9 H Lymph % (Auto) 14.3 L Scott % (Auto) 8.0 Eos % (Auto) 0.0 Baso % (Auto) 0.2 Lymph # (Auto) 1.8 Scott # (Auto) 1.0 Eos # (Auto) 0.0 Baso # (Auto) 0.0 Abs Immat Gran (auto) 0.07 H Absolute Neuts (auto) 9.6 H Absolute Nucleated RBC 0.000 Nucleated RBC % (auto) 0.0 Microbiology Microbiology Results: Microbiology 05/28/24 10:12 Blood Culture - Preliminary Blood - Venous No growth after 24 hours. 05/28/24 10:12 Blood Culture - Preliminary Blood - Venous No growth after 24 hours. Procedures Date of Service Date of Service: 05/31/24 Progress Note: A&P Assessment and plan (1) Acute cholecystitis: Status: Acute Assessment and Plan: With purulent gallbladder contents, severe inflammatory changes in thick rind Doing well so far postop We will continue on IV antibiotics She feels that she needs to stay 1 more day Pain management Encouraged ambulation Plan to DC JUAN drain prior to discharge Time Spent With Patient Time: Total time managing care of this patient today ____ minutes. Quality Stroke Does the patient have a stroke diagnosis?: No VTE Prior VTE?: No VTE Risk Level:: Medical - moderate - high VTE Device Contraindication: N/A - Device Ordered VTE Drug Contraindication: N/A - Med Ordered
[2024-05-30] MEDS: Gabapentin 400 MG CAPSULE PO ×3 (11:37→22:03)
[2024-05-30] MEDS: clonazePAM 1 MG TABLET PO ×2 (11:37→22:02)
[2024-05-30] MEDS: 0.9 % Sodium Chloride Flush 3 ML SYRINGE IVFLUSH ×3 (11:38→22:03)
[2024-05-30 15:29] VITALS: BP 116/66; PULSE 95; RESP 18; TEMP 36.6; O2SAT 95
[2024-05-30] MEDS: clonazePAM 0.5 MG TABLET PO (16:16)
[2024-05-30 20:00] VITALS: BP 128/67; PULSE 90; RESP 18; TEMP 36.5; O2SAT 99
[2024-05-30] MEDS: lamoTRIgine 100 MG TABLET PO (22:02)
[2024-05-30] MEDS: Venlafaxine HCl ER 75 MG CAP.ER.24H PO (22:02)
[2024-05-31 03:05] VITALS: BP 120/80; PULSE 123; RESP 18; TEMP 37.2; O2SAT 93
[2024-05-31] MEDS: Piperacillin Sodium/Tazobactam 3.375 GM in 0.9 % Sodium Chloride 50 ML IV ×2 (03:15→09:13)
[2024-05-31 03:26] VITALS: PULSE 110; O2SAT 96
[2024-05-31 07:53] VITALS: BP 125/80; PULSE 96; RESP 16; TEMP 37.2; O2SAT 94
[2024-05-31] MEDS: clonazePAM 1 MG TABLET PO (07:53)
[2024-05-31] MEDS: Gabapentin 400 MG CAPSULE PO (07:53)
[2024-05-31] MEDS: 0.9 % Sodium Chloride Flush 3 ML SYRINGE IVFLUSH (07:53)
[2024-05-31] MEDS: oxyCODONE HCl Immed Release 5 MG TABLET PO (07:53)
--- NOTE | 2024-05-31 08:37 | PM.PNGS ---
Subjective Subjective Date of Service: 05/31/24 <Rosalinda Bob PA-C - Last Filed: 05/31/24 08:40> 05/31/24 <Onesimo Hamilton MD - Last Filed: 05/31/24 10:10> Interval history: Tolerating solid diet. Pain well controlled. OOB and ambulating. Wants to go home. <Rosalinda Bob PA-C - Last Filed: 05/31/24 08:40> Physical Exam Vital Signs: Vital Signs: Last Vital Signs Temp 99 F 05/31/24 07:53 Pulse 96 05/31/24 07:53 Resp 16 05/31/24 07:53 BP 125/80 05/31/24 07:53 Pulse Ox 94 05/31/24 07:53 O2 Del Method Room Air 05/31/24 07:53 O2 Flow Rate 1 05/29/24 13:22 BMI result Body Mass Index 31.1 <MOUNIKA Pelaez Last Filed: 05/31/24 08:40> Const: General: comfortable, no acute distress and alert <Rosalinda Bob PA-C - Last Filed: 05/31/24 08:40> Orientation/consciousness: patient oriented x3 <MOUNIKA Pelaez Last Filed: 05/31/24 08:40> Resp: Effort & Inspection: normal respiratory effort <MOUNIKA Pelaez Last Filed: 05/31/24 08:40> GI: Other: JUAN scant sanguineous drainage, removed at bedside <Rosalinda Bob PA-C - Last Filed: 05/31/24 08:40> Inspection: No distended and Yes incision (clean) <MOUNIKA Pelaez Last Filed: 05/31/24 08:40> Palpation (GI): Soft to palpation, Tenderness to palpation present (GI) (mild incisional) and no guarding <MOUNIKA Pelaez Last Filed: 05/31/24 08:40> Percussion: Yes normal to percussion <MOUNIKA Pelaez Last Filed: 05/31/24 08:40> Skin: General skin exam: no rashes or lesions noted <Rosalinda Bob PA-C - Last Filed: 05/31/24 08:40> Neuro: General: patient oriented x3 and moves all extremities <Rosalinda Bob PA-C - Last Filed: 05/31/24 08:40> Objective Data Active Medications Acetaminophen (Acetaminophen 325 Mg Tablet) 650 mg PO Q6H PRN PRN Reason: Pain, Mild (Pain Scale 1-3), fever or headache Last Admin: 05/29/24 01:26 Dose: 650 mg Documented By: LAUREN Calcium Carbonate (Calcium Carbonate 750 Mg Tab.Chew) 750 mg PO Q4H PRN PRN Reason: Heartburn Last Admin: 05/28/24 18:25 Dose: 750 mg Documented By: JAZZY Clonazepam (Clonazepam 1 Mg Tablet) 1 mg PO BID [facility] Last Admin: 05/31/24 07:53 Dose: 1 mg Documented By: ADRIANNE Clonazepam (Clonazepam 0.5 Mg Tablet) 0.5 mg PO DAILY@1600 [facility] Last Admin: 05/30/24 16:16 Dose: 0.5 mg Documented By: REGGIE Gabapentin (Gabapentin 400 Mg Capsule) 400 mg PO TID [facility] Last Admin: 05/31/24 07:53 Dose: 400 mg Documented By: ADRIANNE Piperacillin Sod/Tazobactam (Sod 3.375 gm/ Sodium Chloride) 50 mls @ 100 mls/hr IV Q6H [facility] Last Infusion: 05/31/24 03:45 Dose: Infused Documented By: AGNIESZKA Lamotrigine (Lamotrigine 100 Mg Tablet) 100 mg PO BEDTIME [facility] Last Admin: 05/30/24 22:02 Dose: 100 mg Documented By: AGNIESZKA Melatonin (Melatonin 3 Mg Tablet) 6 mg PO BEDTIME PRN PRN Reason: Insomnia Morphine Sulfate (Morphine Sulfate 4 Mg/Ml Cartridge) 3 mg IVPUSH Q3H PRN; Protocol PRN Reason: Pain, Severe (Pain Scale 7-10) Last Admin: 05/30/24 22:37 Dose: 3 mg Documented By: AGNIESZKA Ondansetron HCl (Ondansetron Hcl 4 Mg/2 Ml Vial) 4 mg IVPUSH Q6H PRN PRN Reason: nausea Last Admin: 05/28/24 16:29 Dose: 4 mg Documented By: MADDENLorraine Oxycodone HCl (Oxycodone Hcl Immed Release 5 Mg Tablet) 5 mg PO Q4H PRN PRN Reason: Pain, Moderate(Pain Scale 4-6) Last Admin: 05/31/24 07:53 Dose: 5 mg Documented By: ADRIANNE Sodium Chloride (0.9 % Sodium Chloride Flush 3 Ml Syringe) 3 ml IVFLUSH QSHIFT [facility] Last Admin: 05/31/24 07:53 Dose: 3 ml Documented By: ADRIANNE Venlafaxine HCl (Venlafaxine Hcl Er 75 Mg Cap.Er.24h) 75 mg PO BEDTIME [facility] Last Admin: 05/30/24 22:02 Dose: 75 mg Documented By: AGNIESZKA <Rosalinda Bob PA-C - Last Filed: 05/31/24 08:40> Labs CBC & Chem 7: 05/30/24 05:08 05/28/24 07:40 <Rosalinda Bob PA-C - Last Filed: 05/31/24 08:40> Microbiology Microbiology Results: Microbiology 05/28/24 10:12 Blood Culture - Preliminary Blood - Venous No growth after 48 hours. 05/28/24 10:12 Blood Culture - Preliminary Blood - Venous No growth after 48 hours. <Rosalinda Bob PA-C - Last Filed: 05/31/24 08:40> Procedures Date of Service Date of Service: 05/31/24 <Rosalinda Bob PA-C - Last Filed: 05/31/24 08:40> 05/31/24 <Onesimo Hamilton MD - Last Filed: 05/31/24 10:10> Progress Note: A&P Assessment and plan (1) Acute cholecystitis: Status: Acute <Rosalinda Bob PA-C - Last Filed: 05/31/24 08:40> Assessment and Plan: Denies significant pain Tolerating diet Feels well Abdomen soft and benign JUAN drain with scanty output - DC before discharge Okay to DC home Discharge instructions given Seen and examined independently <Onesimo Hamilton MD - Last Filed: 05/31/24 10:10> (2) S/P laparoscopic cholecystectomy: Status: Acute <MOUNIKA Pelaez Last Filed: 05/31/24 08:40> Assessment and Plan: POD #2 s/p lap dionicio. Doing well post op, pain controlled, tolerating solid diet. VSS. Abd exam benign with clean incisions, scant JUAN drainage. JUAN drain removed uneventfully. Stable for dc to home today. F/u in office in 2 weeks. Patient comfortable with plan. <Rosalinda Bob PA-C - Last Filed: 05/31/24 08:40> Time Spent With Patient Time: Total time managing care of this patient today ____ minutes. <Rosalinda Bob PA-C - Last Filed: 05/31/24 08:40> Quality Stroke Does the patient have a stroke diagnosis?: No <Rosalinda Bob PA-C - Last Filed: 05/31/24 08:40> VTE Prior VTE?: No <Rosalinda Bob PA-C - Last Filed: 05/31/24 08:40> VTE Risk Level:: Medical - moderate - high <Rosalinda Bob PA-C - Last Filed: 05/31/24 08:40> VTE Device Contraindication: N/A - Device Ordered <Rosalinda Bob PA-C - Last Filed: 05/31/24 08:40> VTE Drug Contraindication: N/A - Med Ordered <Rosalinda Bob PA-C - Last Filed: 05/31/24 08:40>
--- NOTE | 2024-05-31 08:44 | MHC.CM.PN ---
DP: PT HAS BEEN MEDICALLY CLEARED FOR DC HOME, NO SERVICES. PT HAS OWN RIDE HOME
--- NOTE | 2024-05-31 10:32 | PM.DS ---
DS: Providers Provider Date of Service: 05/31/24 Date of admission: 05/28/24 14:59 Date of discharge: 05/31/24 Primary care physician: Venancio Aldana MD Attending physician on admission: Onesimo Hamilton Attending physician on discharge: Onesimo Hamilton DS: Diagnosis Discharge Diagnosis (1) Acute cholecystitis: Status: Acute DS: Summary Hospital Course Hospital Course: HPI AT ADMISSION: Daxa Bauman is a 54 year old female here in the ER because of the abdominal pain. She says this started 2 nights ago. She says that this was on the upper abdomen but seemed to be both on the left and right side. She says that this rotated the back. However, she says that this seemed to have localized on the right upper quadrant. She says that this radiates all the way to the back. She denies any nausea or vomiting. She has known constipation and is being followed by Gastroenterology for this. She says she has anxiety and depression but otherwise denies any other significant medical problems. She had an ultrasound showing multiple gallstones with mild gallbladder wall thickening. This is suggestive of mild acute cholecystitis She has a CT scan pending so we will review this as well. Otherwise, I explained to her that it may be best for her to be admitted. She was started on antibiotics and I reviewed with the option of proceeding with cholecystectomy for cholecystitis. I discussed the technique of laparoscopic cholecystectomy and possible open cholecystectomy. I reviewed the risks including but not limited to bleeding, infections, injury to other organs including bowel, liver and the bile ducts, retained stones, bile leak, as well as the benefits and alternatives. HOSPITAL COURSE: The patient was admitted to the surgical service for further treatment of the acute cholecystitis. She was started on IV abx, IVF. It was recommended to proceed with laparoscopic cholecystectomy, possible open. She was added onto the OR schedule for the following day. On 05/29/24, a laparoscopic cholecystectomy was performed by Dr. Hamilton without complication. JUAN drain was placed. The patient tolerated the procedure well. She had an uncomplicated recovery course. She remained inpatient 2 days post op for pain control. She felt well POD #2 and was tolerating a solid diet without nausea or vomiting, had good pain control and was ambulating without difficulty. She was hemodynamically stable. Her abdomen was benign with appropriate post op tenderness and clean and intact dressings. Her JUAN drain had scant sanguineous output and was removed. She felt ready for discharge. She was discharged to home on 05/31/24 in stable condition. She is to follow up in the office in 2 weeks. Status at Discharge Functional status at discharge: independent ambulation Overall status at discharge: patient is progressing back to baseline Time Attestation Discharge Coordination Time (in mins): 30 Quality: Safe Use of Opioids Does Pt have an Active Cancer Diagnosis on the Problem List?: No Quality: Stroke Does the patient have a stroke diagnosis?: No Physical Exam Vital Signs: Vital Signs: Last Vital Signs Temp 99 F 05/31/24 07:53 Pulse 96 05/31/24 07:53 Resp 16 05/31/24 07:53 BP 125/80 05/31/24 07:53 Pulse Ox 94 05/31/24 07:53 O2 Del Method Room Air 05/31/24 07:53 O2 Flow Rate 1 05/29/24 13:22 BMI result Body Mass Index 31.1 Const: General: comfortable, no acute distress and alert Orientation/consciousness: patient oriented x3 Resp: Effort & Inspection: normal respiratory effort GI: Inspection: No distended and Yes incision (clean) Palpation (GI): Soft to palpation, Tenderness to palpation present (GI) (mild incisional) and no guarding Skin: General skin exam: no rashes or lesions noted and no jaundice Neuro: General: patient oriented x3 DS: Data Data Completed and Pending Completed studies during hospitalization [Text1]: 05/29/24 11:37 Surgical [PTH] Routine Gallbladder, cholecystectomy: Acute hemorrhagic cholecystitis with necrosis and cholelithiasis Labs on day of discharge: Preliminary micro results at discharge 05/28/24 10:12 Blood Culture - Preliminary Blood - Venous No growth after 48 hours. 05/28/24 10:12 Blood Culture - Preliminary Blood - Venous No growth after 48 hours. Discharge Plan Discharge Anticipated Discharge Date/Time: 05/31/24 11:27 Patient Disposition: Home, Self-Care Discharge Diagnosis: s/p laparoscopic cholecystectomy Referrals: Venancio Aldana MD [Primary Care Provider] - 1 Week Onesimo Hamilton MD [Physician] - 2 Weeks Discharge Medications: New oxycodone 5 mg tablet 5 mg PO Q4H PRN (Reason: pain (scale score 7-10)) Qty: 24 0RF Rx Instructions: Partial Fill upon patient request. sennosides [Senna Lax] 8.6 mg tablet 8.6 mg PO BID PRN (Reason: constipation) Qty: 30 0RF Continued clonazepam 1 mg tablet 0.5 mg PO DAILY@1600 clonazepam 1 mg tablet 1 mg PO BID ibuprofen 200 mg Tablet 400 mg PO Q8H PRN (Reason: Pain) gabapentin 400 mg capsule 400 mg PO TID lamotrigine 100 mg tablet 100 mg PO BEDTIME venlafaxine 75 mg capsule,extended release 24hr 75 mg PO BEDTIME Discharge Orders: Discharge Order (Routine); Ordered 05/31/24 Ordered By: Rosalinda Bob Diet: Low fat, low cholesterol Activity on Discharge: No heavy lifting Stand Alone Forms: Patient Portal Discharge page Print Language: Hong [place]er Activity Restrictions/Additional Instructions: If the incision area is tender, you may apply an ice pack for short intervals (No more than 20 minutes on, followed by at least 20 minutes off). Do not apply heat. Do not use creams, lotions, or topical antibiotics. These can cause infection or allergic reaction. Ok to shower. Remove bandaids. You have steri strips (small white cloth strips) covering your incision- these will fall off ~1 week. Follow up in office with Dr. Hamilton in 2 weeks. ([phone]) No heavy lifting (>10-20lbs) or strenuous activity! Call Your Doctor If: -Your temperature exceeds 101.5? F -You experience excessive pain or swelling -You have an unexpected reaction to medication -You have excessive bleeding -You experience continued vomiting/nausea -Your incision begins to separate -Your incision shows signs of infection such as increased redness, swelling, excessive pain, drainage (light blood or clear fluid is normal) or heat Care Plan Goals: Return to baseline health and resume normal activities following recovery period. Health Concerns: acute cholecystitis with hydrops Plan of Treatment: s/p laparoscopic cholecystectomy f/u in office in 2 weeks Assessment: Doing well post op.
== END 2024-05-31 12:08 | disposition home or self-care (01) | DRG 418 ==
LOC: HO.ED 10:14 → HO.EDOVER 15:12 → HO.S3 19:36
PROVIDERS: Physician Assistant Surgical; Admitting Provider Surgery; Emergency Provider Emergency Medicine; PCP Internal Medicine; Visit Provider Surgery
PROC: 0FT44ZZ Resection of Gallbladder, Percutaneous Endoscopic Approach (ICD-10-PCS; CPT 47562; principal; 2024-05-29 10:00)
DX: K80.00 Calculus of gallbladder with acute cholecystitis without obstruction (principal); K82.1 Hydrops of gallbladder; F17.210 Nicotine dependence, cigarettes, uncomplicated; Z71.6 Tobacco abuse counseling; Z79.899 Other long term (current) drug therapy
CPT/HCPCS: 36415; 74177; 76705; 80048; 80076; 81003; 83605; 83690; 84702; 85025; 87040; 88304; 99285; J0131; J1100; J1885; J2270; J2405; J2543; J2704; J2795; J3010; J7120; Q9967

== ENCOUNTER → 2024-05-28 14:59 | Outpatient (BNV) | payer OTHER, SELFPAY | PROVIDERS: Admitting Provider Surgery; Emergency Provider Emergency Medicine; PCP Internal Medicine; Visit Provider Surgery | DX: K81.0 Acute cholecystitis (principal); Z90.49 Acquired absence of other specified parts of digestive tract | CPT/HCPCS: 47562; 99024; 99222; 99499 ==

== ENCOUNTER 2024-06-14 10:23 | Outpatient (AMB) | payer OTHER, SELFPAY ==
--- NOTE | 2024-06-14 10:24 | MHC.OFFVIS ---
Vital Signs 06/14/24 10:30 Height 5 ft 4 in Weight 177 lb 2 oz BMI 30.4 Intake Visit Reasons: s/p Cholecystectomy Laparoscopic Intake Note: This patient presents for post-op assessment status post laparoscopic cholecystectomy. Pt c/o; reports no complaints at this time. 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 She underwent laparoscopic cholecystectomy for acute cholecystitis last May 29, 2024. She had purulent cholecystitis at that time. She tolerated the procedure well. She was discharged on postop day 2. She has good oral intake. She denies significant GI complaints. [facility] Medical History Gallstones Depression Anxiety Surgical History History of laparoscopic cholecystectomy (~05/29/24) Hx of colonoscopy History of tubal ligation Hx of right breast biopsy Hx of section Social History Household Members: None Housing: House Are you a primary home health care worker to a significant other at home: No Do you presently have visiting nurse or other home services: No Alcohol intake: never Comment: counts correct Patient Tobacco Use Status: Current everyday Tobacco user Tobacco use type: Smokeless Tobacco Years Smoked: 8 years e-Cigarette/Vaping Use: Currently Using Second Hand Smoke Exposure: No service: No Current occupational status: disabled 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 Cognitive needs: No Hearing needs: No Vision needs: No Female Reproductive History Menstrual Age of Menarche: 12 Review of Systems Const Denies chills and Denies fever(s) Card Denies chest pain, Denies dyspnea and Denies dyspnea on exertion Resp Denies cough, Denies dyspnea and Denies dyspnea on exertion GI Denies hematochezia and Denies change in bowel habits Denies hematuria Musc Denies back pain and Denies limited range of motion Neuro Denies focal weakness and Denies convulsions Psych Denies depression and Denies mood swings Physical Exam Const General: comfortable and no acute distress Orientation/consciousness: patient oriented x3 Eyes Other: Nonicteric Neck Neck: Yes no lymphadenopathy Resp Auscultation: clear to auscultation bilaterally Cardio Rhythm: regular rhythm GI Other: All incisions are well healed Palpation (GI): Soft to palpation, nontender and no guarding Neuro General: patient oriented x3 Assessment & Plan Assessment & Plan (1) S/P laparoscopic cholecystectomy: Code(s): Z90.49 - Acquired absence of other specified parts of digestive tract Category: Surgical Plan: She is doing well postoperatively. All incisions are well healed. Her path report shows hemorrhagic cholecystitis with areas of necrosis. I advised her to avoid lifting anything more than 20 lb for about 2 more weeks. She can follow up on a p.r.n. basis. Coding Level of Care Code Global (04613) Diagnoses S/P laparoscopic cholecystectomy Z90.49
[2024-06-14 10:30] VITALS: BMI 30.4
== END 2024-06-14 10:41 | disposition home or self-care (01) ==
PROVIDERS: PCP Internal Medicine; Visit Provider Surgery
DX: Z90.49 Acquired absence of other specified parts of digestive tract (principal)
CPT/HCPCS: 99024

== ENCOUNTER → 2024-06-14 10:23 | Outpatient (BNVA) | payer OTHER, SELFPAY | PROVIDERS: PCP Internal Medicine; Visit Provider Surgery | DX: Z90.49 Acquired absence of other specified parts of digestive tract (principal) | CPT/HCPCS: 99212 ==

== ENCOUNTER 2024-07-14 12:35 | Outpatient (AMB) | payer OTHER, SELFPAY ==
[2024-07-14 12:39] VITALS: BP 122/80; PULSE 96; O2SAT 98; BMI 30.4
--- NOTE | 2024-07-14 12:39 | MHC.PC.OV ---
Vital Signs 07/14/24 12:39 Height 5 ft 4 in Weight 177 lb BMI 30.4 BP 122/80 Blood Pressure Location Rt brachial Position Sitting Pulse 96 Pulse Source Pulse Oximeter Pulse Oximetry (%) 98 Intake Visit Reasons: Paperwork regarding Reasonable Accomodation Allergies mannitol [From ZOMETA] Allergy (Severe, Verified 07/14/24 12:43) DIFFICULTY SWALLOWING water for injection,sterile [From ZOMETA] Allergy (Severe, Verified 07/14/24 12:43) DIFFICULTY SWALLOWING zoledronic acid [From ZOMETA] Allergy (Severe, Verified 07/14/24 12:43) DIFFICULTY SWALLOWING latex [Latex] Allergy (Intermediate, Verified 07/14/24 12:43) RASH hydroxyzine [From VISTARIL] Allergy (Mild, Verified 07/14/24 12:43) SWELLING Medication List - Last Reconciled 07/14/24 by Venancio Aldana MD clonazepam 0.5 mg PO DAILY@1600 clonazepam 1 mg PO BID gabapentin 400 mg PO TID ibuprofen 400 mg (2 x 200 mg) PO Q8H PRN lamotrigine 100 mg PO BEDTIME sennosides (Senna Lax) 8.6 mg PO BID PRN venlafaxine ER 75 mg PO BEDTIME Tobacco use date assessed: 12/17/23 Dental Screening Dental Screen Date: 12/17/23 HPI Paperwork regarding Reasonable Accomodation HPI Details Patient is 54-year-old female with a history of chronic vertigo Currently where she lives there are no railing to hold onto when she is climbing couple of stairs to enter the building She has fallen couple of time because of that Patient is requesting paperwork to be filled so she can get railing installed Paperwork filled Is currently on semaglutide injections for the past 2 months Labs were done in May Patient has managed to lose some weight She is tolerating injections no side effects Patient have a follow-up appointment in September We will repeat labs then [facility] Medical History Gallstones Depression Anxiety Surgical History History of laparoscopic cholecystectomy (~05/29/24) Hx of colonoscopy History of tubal ligation Hx of right breast biopsy Hx of section Social History Household Members: None Housing: House Are you a primary healthcare network pricing consultant to a significant other at home: No Do you presently have visiting nurse or other home services: No Alcohol intake: never Comment: counts correct Patient Tobacco Use Status: Current everyday Tobacco user Tobacco use type: Smokeless Tobacco Years Smoked: 8 years e-Cigarette/Vaping Use: Currently Using Second Hand Smoke Exposure: No service: No Current occupational status: disabled 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 1. Little interest or pleasure in doing things: several days 2. Feeling down, depressed, or hopeless: several days 3. Trouble falling or staying asleep, or sleeping too much: more than half the days 4. Feeling tired or having little energy: more than half the days 5. Poor appetite or overeating: several days 6. Feeling bad about yourself - or that you are a failure or have let yourself or your family down: more than half the days 7. Trouble concentrating on things, such as reading the newspaper or watching television: nearly every day 8. Moving or speaking so slowly that other people could have noticed. Or the opposite - being so fidgety or restless that you have been moving around a lot more than usual: several days 9. Thoughts that you would be better off or of hurting yourself in some way: not at all Total score: 13 Depression Screening Interpretation: Positive Depression Screening Follow-up: Existing condition and In treatment Depression Screening Done: Yes 37473 - PHQ-9 Billing: Yes Source: Developed by Drs. Wiley Gonzalez, Alyssa Amaro, Skyler Chao and colleagues, with an educational ragini from [employer]. Thrive Questionnaire Date Thrive assessed: 07/14/24 I am a: Patient What is your living situation today?: I have a steady place to live Within the past 12 months, did the food you bought not last and you didn't have the money to get more?: Never true Within the past 12 months, did you worry whether your food would run out before you got money to buy more?: Never true Do you have trouble paying for medicines?: No Do you have trouble getting transportation to medical appointments?: No Do you have trouble paying your heating and electricity bill?: No Do you have trouble taking care of your child, family member or friend?: I choose not to answer this question Do you have trouble with day-to-day activities such as bathing, preparing meals, shopping, managing finances, etc.?: I choose not to answer this question Are you currently unemployed and looking for a job?: No Are you interested in more education?: No Please select the resources that you would like help with: None Currently or been in a relationship where the following occur: I choose not to answer THRIVE Score: 0 AUDIT C Alcohol Use Questionnaire (AUDIT-C) 1. How often do you have a drink containing alcohol?: Never 3. How often do you have six or more drinks on one occasion?: Never Total Score: 0 Score Reviewed/Action Taken: Yes EARLENE-7 AMB Questionnaire EARLENE-7 Date EARLENE - 7 assessed: 07/14/24 Feeling nervous, anxious, or on edge: 3 = Nearly every day Not being able to stop or control worryin = Nearly every day Worrying too much about different things: 3 = Nearly every day Trouble relaxin = More than half the days Being so restless that it is hard to sit still: 1 = Several days Becoming easily annoyed or irritable: 1 = Several days Feeling afraid as if something awful might happen: 1 = Several days Total EARLENE-7 score (0-4 normal; 5-9 mild; 10-14 moderate; 15-21 severe): 14 Source: Developed by Drs. Wiley Gonzalez, Alyssa Amaro, Skyler Chao and colleagues, with an educational ragini from [employer]. EARLENE-7 Assessment Billing EARLENE-7 Assessment Tool: EARLENE-7 Assessment 30307 Review of Systems Const Denies chills and Denies fever(s) ENT Denies epistaxis and Denies nasal discharge Card Denies chest pain Resp Denies chest congestion, Denies cough and Denies hemoptysis GI Denies diarrhea and Denies nausea Skin/Breast Denies rash Neuro Reports no additional complaints Psych Reports no additional complaints Endo Reports no additional complaints Physical exam (Primary Care) Vital Signs: Last Vital Signs Pulse 96 07/14/24 12:39 BP 122/80 07/14/24 12:39 Pulse Ox 98 07/14/24 12:39 BMI result Body Mass Index 30.4 Tobacco/Smoking Status: Tobacco use Status Tobacco use date assessed 12/17/23 07/14/24 12:41 Patient Tobacco Use Status Current everyday Tobacco 07/14/24 12:41 Tobacco use type Smokeless Tobacco 07/14/24 12:41 e-Cigarette/Vaping Use Currently Using 07/14/24 12:41 PHQ-9: PHQ-9 Score PHQ-9: Total score 13 07/14/24 12:44 Depression Screening Interpretation: Positive Depression Screening Follow-up: Existing condition and In treatment Thrive Assessment: Date of Thrive Assessment Date Thrive assessed 07/14/24 07/14/24 12:41 Currently or been in a relationship where the following occur: I choose not to answer Const General: cooperative, comfortable and no acute distress Orientation/consciousness: patient oriented x3 HENMT Head: Yes normocephalic Eyes General: appearance normal, both eyes and all related structures Neck Neck: Yes supple Resp Effort & Inspection: normal respiratory effort, no cough and no stridor Cardio Rhythm: regular rhythm Heart sounds: S1 normal heart sound present and S2 normal heart sound present Skin General skin exam: turgor normal Neuro General: patient oriented x3, tone normal and moves all extremities Extrem Right lower extremity: no edema Left lower extremity: no edema Coding Level of Care Code Est Pt Level 4 (08478) Complex EM visit Add On G2211 Diagnoses Class 1 obesity due to excess calories without serious comorbidity with body mass index (BMI) of 32.0 to 32.9 in adult E66.09; Z68.32 Obesity classification: adult class 1 (BMI 30 - 34.9) Serious obesity comorbidity presence: without serious comorbidity Body mass index: BMI 32.0-32.9 Chronic vertigo R42 Chronic left sacroiliac joint pain M53.3; G89.29 Headache syndrome G44.89 Additional Codes EARLENE-7 Assessment Billing - EARLENE-7 Assessment Tool: EARLENE-7 Assessment 88189 ([id number]) PHQ-9 - 94186 - PHQ-9 Billing: Yes ([id number]) Assessment & Plan Assessment & Plan (1) Obesity due to excess calories: Code(s): E66.09 - Other obesity due to excess calories Category: Medical Qualifiers: Obesity classification: adult class 1 (BMI 30 - 34.9) Serious obesity comorbidity presence: without serious comorbidity Body mass index: BMI 32.0-32.9 Qualified Code(s): E66.09 - Other obesity due to excess calories; Z68.32 - Body mass index [BMI] 32.0-32.9, adult (2) Chronic vertigo: Code(s): R42 - Dizziness and giddiness Category: Medical (3) Chronic left sacroiliac joint pain: Code(s): M53.3 - Sacrococcygeal disorders, not elsewhere classified; G89.29 - Other chronic pain Category: Medical (4) Headache syndrome: Code(s): G44.89 - Other headache syndrome Category: Medical Plan Patient is 54-year-old female with a history of chronic vertigo Currently where she lives there are no railing to hold onto when she is climbing couple of stairs to enter the building She has fallen couple of time because of that Patient is requesting paperwork to be filled so she can get railing installed Paperwork filled She has been evaluated by Neurology in the past for that I have sent meclizine to be taken up to 3 times a day Q 8 as needed She is on disability for psychiatric reasons as well And is seeing a psychiatrist all psychiatric medications through them Patient is stable at this time Is currently on semaglutide injections for the past 2 months Labs were done in May Patient has managed to lose some weight She is tolerating injections no side effects Patient have headache syndrome also along with chronic lower back pain Taking ibuprofen as needed, side effect of ibuprofen discussed with the patient Patient have a follow-up appointment in September We will repeat labs then Medications: New ibuprofen 400 mg (2 x 200 mg) PO Q8H PRN 90 tabs 0RF Pain meclizine 25 mg PO BID-TID 90 days PRN 180 tabs 0RF motion sickness
== END 2024-07-14 13:32 | disposition home or self-care (01) ==
PROVIDERS: PCP Internal Medicine; Visit Provider Internal Medicine
DX: E66.09 Other obesity due to excess calories (principal); Z68.32 Body mass index [BMI] 32.0-32.9, adult; R42 Dizziness and giddiness; M53.3 Sacrococcygeal disorders, not elsewhere classified; G89.29 Other chronic pain; G44.89 Other headache syndrome

== ENCOUNTER → 2024-07-14 12:35 | Outpatient (BNVA) | payer OTHER, SELFPAY | PROVIDERS: PCP Internal Medicine; Visit Provider Internal Medicine | DX: E66.09 Other obesity due to excess calories (principal); Z68.32 Body mass index [BMI] 32.0-32.9, adult; R42 Dizziness and giddiness; M53.3 Sacrococcygeal disorders, not elsewhere classified; G89.29 Other chronic pain; G44.89 Other headache syndrome | CPT/HCPCS: 96127; 99212 ==

== ENCOUNTER 2024-08-17 08:40 | Outpatient (AMB) | payer OTHER, SELFPAY ==
--- NOTE | 2024-08-17 08:41 | A.OFFPC_ITS ---
Intake Visit Reasons: Discuss Med Allergies mannitol [From ZOMETA] Allergy (Severe, Verified 08/17/24 08:41) DIFFICULTY SWALLOWING water for injection,sterile [From ZOMETA] Allergy (Severe, Verified 08/17/24 08:41) DIFFICULTY SWALLOWING zoledronic acid [From ZOMETA] Allergy (Severe, Verified 08/17/24 08:41) DIFFICULTY SWALLOWING latex [Latex] Allergy (Intermediate, Verified 08/17/24 08:41) RASH hydroxyzine [From VISTARIL] Allergy (Mild, Verified 08/17/24 08:41) SWELLING Medication List - Last Reconciled 08/17/24 by Venancio Aldana MD clonazepam 0.5 mg PO DAILY@1600 clonazepam 1 mg PO BID gabapentin 400 mg PO TID ibuprofen 400 mg (2 x 200 mg) PO Q8H PRN lamotrigine 100 mg PO BEDTIME meclizine 25 mg PO BID-TID PRN 90 days semaglutide 1 mg (0.75 mL) subcut QWEEK 30 days sennosides (Senna Lax) 8.6 mg PO BID PRN venlafaxine ER 75 mg PO BEDTIME Tobacco use date assessed: 08/17/24 Dental Screening Dental Screen Date: 08/17/24 Did you have a dental visit in the last 12 months?: Yes Did you have a dental problem in the last 6 months where you did not have access to dental care?: No Was dental information given to patient?: Patient has dentist HPI Discuss Med HPI Details Chief Complaint Concerns about medication refill for weight management and inconsistencies in medication adherence. Assessment and Plan 54-year-old female with a history of kervin ght management concerns presenting with issues in obtaining medication refills and monitoring weight changes. The patient reports a lapse in medication adherence due to insurance complications, missing two weeks of medication. The patient currently weighs 178 pounds, similar to prior measurements. The primary issue is to ensure continuity of medication management for weight management effectiveness while monitoring any possible side effects or adverse effects from the medication. 1. Weight Management The patient previously experienced medication interruption due to insurance approval issues, resulting in reduced adherence. I have reinitiated a refill with multiple refills provided to ensure adequate supply and adherence continuation. The patient is instructed to monitor weight monthly and report measurements to assess medication efficacy and prevent potential adverse effects. A follow-up assessment is scheduled for October to evaluate ongoing management and refilling requirements. Diagnostic results - Labs from May 28 completed, ne xt labs scheduled for end september Problem List - Weight management concerns possibly re lated to medication adherence Health Maintenance - Monitor weight monthly and report to t eladio efficacy of weight management medication - Upcoming lab tests scheduled for september Patient Instructions - Take weight management medication as d irected with the prescribed dosage of 1 mg. - Report your weight each month to ensur e medication efficacy. - Prepare for lab tests in September as pr eviously scheduled. - Monitor for any side effects or advers e reactions and notify immediately. - Follow up in October for continued ev aluation and management. PFSH Medical History Gallstones Depression Anxiety Surgical History History of laparoscopic cholecystectomy (~05/29/24) Hx of colonoscopy History of tubal ligation Hx of right breast biopsy Hx of section Social History Household Members: None Housing: House Are you a primary healthcare analyst to a significant other at home: No Do you presently have visiting nurse or other home services: No Alcohol intake: never Comment: counts correct Patient Tobacco Use Status: Current everyday Tobacco user Tobacco use type: Smokeless Tobacco Years Smoked: 8 years e-Cigarette/Vaping Use: Currently Using Second Hand Smoke Exposure: No service: No Current occupational status: disabled 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 How often do you have a drink containing alcohol?: Never 3. How often do you have six or more drinks on one occasion?: Never Total Score: 0 Score Reviewed/Action Taken: Yes EARLENE-7 AMB Questionnaire EARLENE-7 Date EARLENE - 7 assessed: 07/14/24 Source: Developed by Drs. Wiley Gonzalez, Alyssa Amaro, Skyler Chao and colleagues, with an educational ragini from [employer]. Review of Systems Const Denies chills and Denies fever(s) ENT Denies epistaxis and Denies nasal discharge Card Denies chest pain Resp Denies chest congestion, Denies cough and Denies hemoptysis GI Denies diarrhea and Denies nausea Skin/Breast Denies rash Neuro Reports no additional complaints Psych Reports no additional complaints Endo Reports no additional complaints Physical exam (Primary Care) Tobacco/Smoking Status: Tobacco use Status Tobacco use date assessed 08/17/24 08/17/24 08:41 Patient Tobacco Use Status Current everyday Tobacco 08/17/24 08:41 Tobacco use type Smokeless Tobacco 08/17/24 08:41 e-Cigarette/Vaping Use Currently Using 08/17/24 08:41 Thrive Assessment: Date of Thrive Assessment Date Thrive assessed 07/14/24 08/17/24 08:41 Telehealth Telehealth Telehealth Platform: [employer] Location of provider rendering services: practice address Location of patient: address on file Patient Identification confirmed using: Name, : Yes Telehealth method: voice only Patient verbally consented to treatment: Yes Patient verbally consented to billing insurance company: Yes Patient informed of any privacy concerns related to visit: Yes Minutes spent on Phone/Video with Pt.: 13 Coding Level of Care Code Tele Est Pt Level 3 (74514) Diagnoses Class 1 obesity due to excess calories without serious comorbidity with body mass index (BMI) of 32.0 to 32.9 in adult E66.09; Z68.32 Body mass index: BMI 32.0-32.9 Obesity classification: adult class 1 (BMI 30 - 34.9) Serious obesity comorbidity presence: without serious comorbidity LFT elevation R79.89 Impaired fasting blood sugar R73.01 Assessment & Plan Assessment & Plan (1) Obesity due to excess calories: Code(s): E66.09 - Other obesity due to excess calories Category: Medical Qualifiers: Body mass index: BMI 32.0-32.9 Obesity classification: adult class 1 (BMI 30 - 34.9) Serious obesity comorbidity presence: without serious comorbidity Qualified Code(s): E66.09 - Other obesity due to excess calories; Z68.32 - Body mass index [BMI] 32.0-32.9, adult (2) LFT elevation: Code(s): R79.89 - Other specified abnormal findings of blood chemistry Category: Medical (3) Impaired fasting blood sugar: Code(s): R73.01 - Impaired fasting glucose Category: Medical Plan Chief Complaint Concerns about medication refill for weight management and inconsistencies in medication adherence. Assessment and Plan 54-year-old female with a history of weight management concerns presenting with issues in obtaining medication refills and monitoring weight changes. The patient reports a lapse in medication adherence due to insurance complications, missing two weeks of medication. The patient currently weighs 178 pounds, similar to prior measurements. The primary issue is to ensure continuity of medication management for weight management effectiveness while monitoring any possible side effects or adverse effects from the medication. 1. Weight Management The patient previously experienced medication interruption due to insurance approval issues, resulting in reduced adherence. I have reinitiated a refill with multiple refills provided to ensure adequate supply and adherence continuation. The patient is instructed to monitor weight monthly and report measurements to assess medication efficacy and prevent potential adverse effects. A follow-up assessment is scheduled for October to evaluate ongoing management and refilling requirements. Diagnostic results - Labs from May 28 completed, next labs scheduled for end september Problem List - Weight management concerns possibly related to medication adherence Health Maintenance - Monitor weight monthly and report to track efficacy of weight management medication - Upcoming lab tests scheduled for end september Patient Instructions - Take weight management medication as directed with the prescribed dosage of 1 mg. - Report your weight each month to ensure medication efficacy. - Prepare for lab tests in September as previously scheduled. - Monitor for any side effects or adverse reactions and notify immediately. - Follow up in October for continued evaluation and management. Orders: Orders TSH reflex Free T4 08/17/24 F33.2 - Major depressive disorder, recurrent severe without psychotic features, R73.01 - Impaired fasting glucose, R79.89 - Other specified abnormal findings of blood chemistry Amylase 08/17/24 F33.2 - Major depressive disorder, recurrent severe without psychotic features, R73.01 - Impaired fasting glucose, R79.89 - Other specified abnormal findings of blood chemistry Complete Blood Count Auto Diff 08/17/24 F33.2 - Major depressive disorder, recurrent severe without psychotic features, R73.01 - Impaired fasting glucose, R79.89 - Other specified abnormal findings of blood chemistry Comprehensive Met. Panel 08/17/24 F33.2 - Major depressive disorder, recurrent severe without psychotic features, R73.01 - Impaired fasting glucose, R79.89 - Other specified abnormal findings of blood chemistry Lipase 12/12/24 F33.2 - Major depressive disorder, recurrent severe without psychotic features, R73.01 - Impaired fasting glucose, R79.89 - Other specified abnormal findings of blood chemistry LDL Cholesterol Direct 08/17/24 F33.2 - Major depressive disorder, recurrent severe without psychotic features, R73.01 - Impaired fasting glucose, R79.89 - Other specified abnormal findings of blood chemistry Medications: Refilled semaglutide for 4 weeks 1 mg (0.75 mL) subcut QWEEK 3.75 mL 2RF 30 days E66.09 - Other obesity due to excess calories, R73.01 - Impaired fasting glucose, Z68.32 - Body mass index [BMI] 32.0-32.9, adult
== END 2024-08-17 10:01 | disposition home or self-care (01) ==
LOC: HO.HMCC 08:40
PROVIDERS: PCP Internal Medicine; Visit Provider Internal Medicine
DX: R73.01 Impaired fasting glucose (principal); E66.09 Other obesity due to excess calories; Z68.32 Body mass index [BMI] 32.0-32.9, adult

== ENCOUNTER 2024-10-18 14:45 | Outpatient (AMB) | payer OTHER, SELFPAY ==
[2024-10-18 14:52] VITALS: BP 120/82; PULSE 113; TEMP 36.7; O2SAT 97; BMI 30.4
--- NOTE | 2024-10-18 14:53 | A.OFFPC_ITS ---
Vital Signs 10/18/24 14:52 Height 5 ft 4 in Weight 177 lb 6 oz BMI 30.4 BP 120/82 Blood Pressure Location Rt brachial Position Sitting Pulse 113 H Pulse Source Pulse Oximeter Temp 98.1 F Temp Source Oral Pulse Oximetry (%) 97 Oxygen Delivery Method Room Air Intake Visit Reasons: Weight Check Allergies mannitol [From ZOMETA] Allergy (Severe, Verified 10/18/24 14:53) DIFFICULTY SWALLOWING water for injection,sterile [From ZOMETA] Allergy (Severe, Verified 10/18/24 14:53) DIFFICULTY SWALLOWING zoledronic acid [From ZOMETA] Allergy (Severe, Verified 10/18/24 14:53) DIFFICULTY SWALLOWING latex [Latex] Allergy (Intermediate, Verified 10/18/24 14:53) RASH hydroxyzine [From VISTARIL] Allergy (Mild, Verified 10/18/24 14:53) SWELLING Medication List - Last Reconciled 10/18/24 by Venancio Aldana MD clonazepam 0.5 mg PO DAILY@1600 clonazepam 1 mg PO BID gabapentin 400 mg PO TID ibuprofen 400 mg (2 x 200 mg) PO Q8H PRN lamotrigine 100 mg PO BEDTIME meclizine 25 mg PO BID-TID PRN 90 days semaglutide 1 mg (0.75 mL) subcut QWEEK 30 days sennosides (Senna Lax) 8.6 mg PO BID PRN venlafaxine ER 75 mg PO BEDTIME Tobacco use date assessed: 10/18/24 Dental Screening Dental Screen Date: 10/18/24 Did you have a dental visit in the last 12 months?: Yes Did you have a dental problem in the last 6 months where you did not have access to dental care?: No Was dental information given to patient?: Patient has dentist HPI Weight Check HPI Details History - The patient is a 54-year-old female pr esenting with obesity management concerns and insomnia. - The patient reports she has not seen a reduction in weight on her current regimen of semaglutide, initially effective, and expresses the need for an increased dosage. - The patient reports insomnia character ized by difficulty falling asleep due to persistent thoughts and notes improvement with naproxen. - The patient reports recent throat disc omfort with difficulty swallowing, initially presenting with white patches which have since resolved, yet the sensation persists. - The patient has a history of anemia de monstrated by low hemoglobin levels recorded in labs from May, which require monitoring and further evaluation. - The patient reports hemorrhoids correl ating with episodes of constipation, and she typically finds relief upon bowel movement. Problem List - Obesity - Gastroesophageal reflux disorder - Insomnia - Difficulty swallowing - Anemia - Hemorrhoids Patient Instructions - Take prescribed naproxen, one tablet a t night for trouble sleeping, with food to minimize gastrointestinal irritation. - Continue gargling with salted water fo r throat discomfort. - Increase semaglutide dosage to 2 mg as per prescription guidelines. - Schedule and complete the recommended lab tests for anemia monitoring. - Report any new or worsening symptoms, especially regarding throat discomfort or signs of infection. Strep test done today is negative Review of Systems - General: No fever no chills - Neurological: No headaches no dizziness - Ear nose throat: no hearing difficulty no ear pain - Cardiovascular: No syncope, no chest pain, no palpitations - Gastrointestinal: No nausea vomiting or diarrhea - Endocrine: No polyuria polydipsia no heat intolerance - Genitourinary: No dysuria , no blood in urine Physical Exam General: No acute distress HEENT: Throat hard to swallow, possible infection, mild erythema, uvula midline Neck: Supple Respiratory system: Able to talk in full sentences, no audible wheeze cardiovascular: S1-S2 regular in rate and rhythm Gastrointestinal: No pain Extremities: No new findings 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: Alert awake oriented x3 motor sensory intact Skin: Normal turgor PFSH Medical History Gallstones Depression Anxiety Surgical History History of laparoscopic cholecystectomy (~05/29/24) Hx of colonoscopy History of tubal ligation Hx of right breast biopsy Hx of section Social History Household Members: None Housing: House Are you a primary nurse wound care to a significant other at home: No Do you presently have visiting nurse or other home services: No Alcohol intake: never Comment: counts correct Patient Tobacco Use Status: Current everyday Tobacco user Tobacco use type: Smokeless Tobacco Years Smoked: 8 years e-Cigarette/Vaping Use: Currently Using Second Hand Smoke Exposure: No service: No Current occupational status: disabled 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 1. Little interest or pleasure in doing things: several days 2. Feeling down, depressed, or hopeless: several days 3. Trouble falling or staying asleep, or sleeping too much: more than half the days 4. Feeling tired or having little energy: more than half the days 5. Poor appetite or overeating: several days 6. Feeling bad about yourself - or that you are a failure or have let yourself or your family down: several days 7. Trouble concentrating on things, such as reading the newspaper or watching television: more than half the days 8. Moving or speaking so slowly that other people could have noticed. Or the opposite - being so fidgety or restless that you have been moving around a lot more than usual: not at all 9. Thoughts that you would be better off or of hurting yourself in some way: not at all Total score: 10 Depression Screening Interpretation: Positive Depression Screening Follow-up: Existing condition and In treatment Depression Screening Done: Yes Source: Developed by Drs. Wiley Gonzalez, Alyssa Amaro, Skyler Chao and colleagues, with an educational ragini from [employer]. Thrive Questionnaire Date Thrive assessed: 10/16/24 I am a: Patient What is your living situation today?: I have a steady place to live Within the past 12 months, did the food you bought not last and you didn't have the money to get more?: Never true Within the past 12 months, did you worry whether your food would run out before you got money to buy more?: Never true Do you have trouble paying for medicines?: No Do you have trouble getting transportation to medical appointments?: No Do you have trouble paying your heating and electricity bill?: No Do you have trouble taking care of your child, family member or friend?: No Do you have trouble with day-to-day activities such as bathing, preparing meals, shopping, managing finances, etc.?: I choose not to answer this question Are you currently unemployed and looking for a job?: No Are you interested in more education?: No Please select the resources that you would like help with: None Currently or been in a relationship where the following occur: No concerns reported THRIVE Score: 0 AUDIT C Alcohol Use Questionnaire (AUDIT-C) 1. How often do you have a drink containing alcohol?: Never 3. How often do you have six or more drinks on one occasion?: Never Total Score: 0 EARLENE-7 AMB Questionnaire EARLENE-7 Date EARLENE - 7 assessed: 07/14/24 Feeling nervous, anxious, or on edge: 1 = Several days Not being able to stop or control worryin = Several days Worrying too much about different things: 1 = Several days Trouble relaxin = Several days Being so restless that it is hard to sit still: 1 = Several days Becoming easily annoyed or irritable: 3 = Nearly every day Feeling afraid as if something awful might happen: 1 = Several days Total EARLENE-7 score (0-4 normal; 5-9 mild; 10-14 moderate; 15-21 severe): 9 Source: Developed by Drs. Wiley Gonzalez, Alyssa Amaro, Skyler Chao and colleagues, with an educational ragini from [employer]. Physical exam (Primary Care) Vital Signs: Last Vital Signs Temp 98.1 F 10/18/24 14:52 Pulse 113 H 10/18/24 14:52 BP 120/82 10/18/24 14:52 Pulse Ox 97 10/18/24 14:52 Oxygen Delivery Method Room Air 10/18/24 14:52 BMI result Body Mass Index 30.4 Tobacco/Smoking Status: Tobacco use Status Tobacco use date assessed 10/18/24 10/18/24 14:54 Patient Tobacco Use Status Current everyday Tobacco 10/18/24 14:54 Tobacco use type Smokeless Tobacco 10/18/24 14:54 e-Cigarette/Vaping Use Currently Using 10/18/24 14:54 PHQ-9: PHQ-9 Score PHQ-9: Total score 10 10/18/24 15:14 Depression Screening Interpretation: Positive Depression Screening Follow-up: Existing condition and In treatment Thrive Assessment: Date of Thrive Assessment Date Thrive assessed 10/16/24 10/18/24 14:54 Currently or been in a relationship where the following occur: No concerns reported Coding Level of Care Code Est Pt Level 4 (72229) Complex EM visit Add On G2211 Diagnoses Obesity (BMI 30.0-34.9) E66.9 Generalized anxiety disorder with panic attacks F41.1; F41.0 Major depressive disorder, recurrent, severe w/o psychotic behavior F33.2 Microcytic anemia D50.9 Hemorrhoids K64.9 Acute pharyngitis J02.9 Assessment & Plan Assessment & Plan (1) Obesity (BMI 30.0-34.9): Code(s): E66.9 - Obesity, unspecified Category: Medical (2) Generalized anxiety disorder with panic attacks: Code(s): F41.1 - Generalized anxiety disorder; F41.0 - Panic disorder [episodic paroxysmal anxiety] Category: Medical (3) Major depressive disorder, recurrent, severe w/o psychotic behavior: Code(s): F33.2 - Major depressive disorder, recurrent severe without psychotic features Category: Medical (4) Microcytic anemia: Code(s): D50.9 - Iron deficiency anemia, unspecified Category: Medical (5) Hemorrhoids: Code(s): K64.9 - Unspecified hemorrhoids Category: Medical (6) Acute pharyngitis: Code(s): J02.9 - Acute pharyngitis, unspecified Category: Medical Plan History - The patient is a 54-year-old female presenting with obesity management concerns and insomnia. - The patient reports she has not seen a reduction in weight on her current regimen of semaglutide, initially effective, and expresses the need for an increased dosage. - The patient reports insomnia characterized by difficulty falling asleep due to persistent thoughts and notes improvement with naproxen. - The patient reports recent throat discomfort with difficulty swallowing, initially presenting with white patches which have since resolved, yet the sensation persists. - The patient has a history of anemia demonstrated by low hemoglobin levels recorded in labs from May, which require monitoring and further evaluation. - The patient reports hemorrhoids correlating with episodes of constipation, and she typically finds relief upon bowel movement. Problem List - Obesity - Gastroesophageal reflux disorder - Insomnia - Difficulty swallowing - Anemia - Hemorrhoids Patient Instructions - Take prescribed naproxen, one tablet at night for trouble sleeping, with food to minimize gastrointestinal irritation. - Continue gargling with salted water for throat discomfort. - Increase semaglutide dosage to 2 mg as per prescription guidelines. - Schedule and complete the recommended lab tests for anemia monitoring. - Report any new or worsening symptoms, especially regarding throat discomfort or signs of infection. Strep test done today is negative Orders: Orders Ferritin Today D50.9 - Iron deficiency anemia, unspecified, E66.9 - Obesity, unspecified, F33.2 - Major depressive disorder, recurrent severe without psychotic features, F41.0 - Panic disorder [episodic paroxysmal anxiety], F41.1 - Generalized anxiety disorder, J02.9 - Acute pharyngitis, unspecified, K64.9 - Unspecified hemorrhoids Complete Blood Count Auto Diff Today D50.9 - Iron deficiency anemia, unspecified, E66.9 - Obesity, unspecified, F33.2 - Major depressive disorder, recurrent severe without psychotic features, F41.0 - Panic disorder [episodic paroxysmal anxiety], F41.1 - Generalized anxiety disorder, J02.9 - Acute pharyngitis, unspecified, K64.9 - Unspecified hemorrhoids Comprehensive Met. Panel Today D50.9 - Iron deficiency anemia, unspecified, E66.9 - Obesity, unspecified, F33.2 - Major depressive disorder, recurrent severe without psychotic features, F41.0 - Panic disorder [episodic paroxysmal anxiety], F41.1 - Generalized anxiety disorder, J02.9 - Acute pharyngitis, unspecified, K64.9 - Unspecified hemorrhoids Lipase Today D50.9 - Iron deficiency anemia, unspecified, E66.9 - Obesity, unspecified, F33.2 - Major depressive disorder, recurrent severe without psychotic features, F41.0 - Panic disorder [episodic paroxysmal anxiety], F41.1 - Generalized anxiety disorder, J02.9 - Acute pharyngitis, unspecified, K64.9 - Unspecified hemorrhoids LDL Cholesterol Direct Today D50.9 - Iron deficiency anemia, unspecified, E66.9 - Obesity, unspecified, F33.2 - Major depressive disorder, recurrent severe without psychotic features, F41.0 - Panic disorder [episodic paroxysmal anxiety], F41.1 - Generalized anxiety disorder, J02.9 - Acute pharyngitis, unspecified, K64.9 - Unspecified hemorrhoids TSH reflex Free T4 Today D50.9 - Iron deficiency anemia, unspecified, E66.9 - Obesity, unspecified, F33.2 - Major depressive disorder, recurrent severe without psychotic features, F41.0 - Panic disorder [episodic paroxysmal anxiety], F41.1 - Generalized anxiety disorder, J02.9 - Acute pharyngitis, unspecified, K64.9 - Unspecified hemorrhoids Vitamin D 25-OH (D2 and D3) Today D50.9 - Iron deficiency anemia, unspecified, E66.9 - Obesity, unspecified, F33.2 - Major depressive disorder, recurrent severe without psychotic features, F41.0 - Panic disorder [episodic paroxysmal anxiety], F41.1 - Generalized anxiety disorder, J02.9 - Acute pharyngitis, unspecified, K64.9 - Unspecified hemorrhoids Vitamin B12 Today D50.9 - Iron deficiency anemia, unspecified, E66.9 - Obesity, unspecified, F33.2 - Major depressive disorder, recurrent severe without psychotic features, F41.0 - Panic disorder [episodic paroxysmal anxiety], F41.1 - Generalized anxiety disorder, J02.9 - Acute pharyngitis, unspecified, K64.9 - Unspecified hemorrhoids Amylase Today D50.9 - Iron deficiency anemia, unspecified, E66.9 - Obesity, unspecified, F33.2 - Major depressive disorder, recurrent severe without psychotic features, F41.0 - Panic disorder [episodic paroxysmal anxiety], F41.1 - Generalized anxiety disorder, J02.9 - Acute pharyngitis, unspecified, K64.9 - Unspecified hemorrhoids Medications: New naproxen 375 mg PO BID PRN 60 tabs 1RF pain Changed From semaglutide for 4 weeks 1 mg (0.75 mL) subcut QWEEK 30 days 3.75 mL 2RF E66.09 - Other obesity due to excess calories, R73.01 - Impaired fasting glucose, Z68.32 - Body mass index [BMI] 32.0-32.9, adult To semaglutide for 4 weeks 2 mg (0.75 mL) subcut QWEEK 90 days 9.75 mL 2RF E66.09 - Other obesity due to excess calories, R73.01 - Impaired fasting glucose, Z68.32 - Body mass index [BMI] 32.0-32.9, adult Refilled ibuprofen 400 mg (2 x 200 mg) PO Q8H PRN 90 tabs 0RF Pain
--- OUTSIDE RECORDS SUMMARY | 2024-10-18 15:58 | XMS_ITS | Clinical Summary ---
Author Organization [facility] Address [address] [place] [address] Care Team Providers Care Screw Machine Setter Name Role Phone Unavailable Primary Care Provider Unavailabl e Social History Tobacco Use Types Packs/Day Years Used Date Smoking Tobacco: Never Assessed Comments Unknown Sex and Gender Information Value Date Recorded Sex Assigned at Not on file Legal Sex Female 2:59 AM EST Gender Identity Not on file Sexual Orientation Not on file Plan of Treatment Health Maintenance Due Date Last Done Comments Breast Cancer Screening 1972 DTaP,Tdap,and Td Vaccines (1 - Tdap) 1991 Hepatitis B Vaccines (1 of 3 - 19+ 3-dose series) 1991 Cervical Cancer Screening: P ap Smear 1993 Zoster Vaccines (1 of 2) 2022 COVID-19 Vaccine (2023-2 5 season) 2024 Influenza Vaccine (#1) 2024 HIB Vaccines Aged Out No longer eligi ble based on patient's age to complete this topic HPV Vaccines Aged Out No longer eligi ble based on patient's age to complete this topic Hepatitis A Vaccines Aged Out No long er eligible based on patient's age to complete this topic IPV Vaccines Aged Out No longer eligi ble based on patient's age to complete this topic MMR Vaccines Aged Out No longer eligi ble based on patient's age to complete this topic Meningococcal ACWY Vaccine Aged Out N o longer eligible based on patient's age to complete this topic Pneumococcal Vaccine: Pediat rics (0 to 5 Years) and At-Risk Patients (6 to 64 Years) Aged Out No longer eligible b ased on patient's age to complete this topic RSV Immunization Patients Un renay 20 months Aged Out No longer eligible b ased on patient's age to complete this topic Varicella Vaccines Aged Out No longer eligible based on patient's age to complete this topic
== END 2024-10-18 15:52 | disposition home or self-care (01) ==
PROVIDERS: PCP Internal Medicine; Visit Provider Internal Medicine
DX: D50.9 Iron deficiency anemia, unspecified (principal); F33.2 Major depressive disorder, recurrent severe without psychotic features; E66.9 Obesity, unspecified; Z68.30 Body mass index [BMI] 30.0-30.9, adult; F41.1 Generalized anxiety disorder; F41.0 Panic disorder [episodic paroxysmal anxiety]; K64.9 Unspecified hemorrhoids; J02.9 Acute pharyngitis, unspecified

== ENCOUNTER → 2024-10-18 14:45 | Outpatient (BNVA) | payer OTHER, SELFPAY | PROVIDERS: PCP Internal Medicine; Visit Provider Internal Medicine | DX: E66.9 Obesity, unspecified (principal); F41.1 Generalized anxiety disorder; F41.0 Panic disorder [episodic paroxysmal anxiety]; F33.2 Major depressive disorder, recurrent severe without psychotic features; D50.9 Iron deficiency anemia, unspecified; K64.9 Unspecified hemorrhoids; J02.9 Acute pharyngitis, unspecified | CPT/HCPCS: 99212 ==

== ENCOUNTER 2024-10-26 16:05 | Outpatient (REF) | payer OTHER, SELFPAY ==
[2024-10-27 12:31] LABS: Influenza A PCR NEGATIVE (Negative); Influenza B PCR POSITIVE (Negative); Resp Syncy Virus RNA Qual PCR NEGATIVE (Negative); SARS COV2 PCR INHOUSE NEGATIVE (Negative)
== END 2024-10-26 16:06 | disposition home or self-care (01) ==
LOC: HO.LAB 16:05
PROVIDERS: PCP Internal Medicine; Visit Provider Nurse Practitioner Family
DX: J06.9 Acute upper respiratory infection, unspecified (principal); J02.9 Acute pharyngitis, unspecified
CPT/HCPCS: 0241U; 99212

== ENCOUNTER 2024-10-26 16:05 | Outpatient (AMB) | payer OTHER, SELFPAY ==
--- NOTE | 2024-10-26 16:17 | MHC.OFFWIV ---
Intake Vital Signs 10/26/24 16:18 Weight 181 lb BP 122/80 Blood Pressure Location Lt brachial Position Sitting Pulse 70 Pulse Source Pulse Oximeter Pulse Oximetry (%) 98 Oxygen Delivery Method Room Air Intake Visit Reasons: EP sore throat Intake Note: Patient here for sore throat that started about 3 days ago. Patient Tobacco Use Status: Current everyday Tobacco user Allergies mannitol [From ZOMETA] Allergy (Severe, Verified 10/18/24 14:53) DIFFICULTY SWALLOWING water for injection,sterile [From ZOMETA] Allergy (Severe, Verified 10/18/24 14:53) DIFFICULTY SWALLOWING zoledronic acid [From ZOMETA] Allergy (Severe, Verified 10/18/24 14:53) DIFFICULTY SWALLOWING latex [Latex] Allergy (Intermediate, Verified 10/18/24 14:53) RASH hydroxyzine [From VISTARIL] Allergy (Mild, Verified 10/18/24 14:53) SWELLING HPI HPI Comments History of Present Illness Details 54 y/o female patient who presents to the walk in clinic with c/o Sore-throat x 3 days. She was seen by PCP 10/18 for similar concern and Rapid Strep was negative. Reports pain with swallowing and feels like food getting stuck. [facility] Medical History (Updated 10/26/24 @ 16:38 by Jessica Hamilton NP) Acute respiratory disease Gallstones Depression Anxiety Surgical History History of laparoscopic cholecystectomy (~05/29/24) Hx of colonoscopy History of tubal ligation Hx of right breast biopsy Hx of section Social History Household Members: None Housing: House Are you a primary aged or disabled care worker to a significant other at home: No Do you presently have visiting nurse or other home services: No Alcohol intake: never Comment: counts correct Patient Tobacco Use Status: Current everyday Tobacco user Tobacco use type: Smokeless Tobacco Years Smoked: 8 years e-Cigarette/Vaping Use: Currently Using Second Hand Smoke Exposure: No service: No Current occupational status: disabled 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 Cognitive needs: No Hearing needs: No Vision needs: No Female Reproductive History Menstrual Age of Menarche: 12 Review of Systems Const All systems reviewed & are unremarkable except as noted in HPI and below Physical Exam Vital Signs: Last Vital Signs Pulse 70 10/26/24 16:18 BP 122/80 10/26/24 16:18 Pulse Ox 98 10/26/24 16:18 Oxygen Delivery Method Room Air 10/26/24 16:18 Const General: cooperative and no acute distress Orientation/consciousness: patient oriented x3 HEENT Head: Yes normocephalic Ears: external ears normal General nose exam: No nasal discharge present Face and sinus: Yes sinuses nontender Mouth: tongue normal, moist mucous membranes and Abnormal oral and palatal mucosa present not erythematous, no white patches, papules and pustules Throat: Yes uvula midline Resp Effort & Inspection: normal respiratory effort and able to speak in complete sentences Auscultation: clear to auscultation bilaterally, no crackles, no rales, no rhonchi and no wheezes Cardio Heart sounds: S1 normal heart sound present and S2 normal heart sound present Neuro General: patient oriented x3 Assessment & Plan Assessment & Plan (1) Acute pharyngitis: Code(s): J02.9 - Acute pharyngitis, unspecified Qualifiers: Pharyngitis/tonsillitis etiology: unspecified etiology Qualified Code(s): J02.9 - Acute pharyngitis, unspecified Plan: Ordered PCN OTC Sore-throat remedies. Warm fluids with Honey and Thao Rapid Strep negative today. (2) Acute respiratory disease: Code(s): J06.9 - Acute upper respiratory infection, unspecified Plan: Ordered SARs Orders: Orders SARS-CoV2/FLU/RSV Today J06.9 - Acute upper respiratory infection, unspecified Medications: New penicillin V potassium 500 mg PO BID 5 days 10 tabs 0RF J02.9 - Acute pharyngitis, unspecified Coding Level of Care Code Est Pt Level 4 (30466) Diagnoses Acute pharyngitis, unspecified etiology J02.9 Pharyngitis/tonsillitis etiology: unspecified etiology Acute respiratory disease J06.9 Time Spent (min) 20
[2024-10-26 16:18] VITALS: BP 122/80; PULSE 70; O2SAT 98
--- OUTSIDE RECORDS SUMMARY | 2024-10-26 16:46 | XMS_ITS | Clinical Summary ---
Author Organization [facility] it Address [address] [place] [address] Care Team Providers Care Powder Core Tester Name Role Phone Unavailable Primary Care Provider [...] Cervical Cancer Screening: P ap Smear 1993 Pneumococcal Vaccine: 50+ Ye ars (1 of 1 - PCV) 2022 Zoster Vaccines (1 of 2) 2022 COVID-19 Vaccine ( - 2023-2 5 season) 2024 Influenza Vaccine (#1) 2024 [...] patient's age to complete this topic Meningococcal B Vacine Aged Out No lo nger eligible based on patient's age to complete [...]
== END 2024-10-26 16:46 | disposition home or self-care (01) ==
PROVIDERS: PCP Internal Medicine; Visit Provider Nurse Practitioner Family
DX: J02.9 Acute pharyngitis, unspecified (principal); J06.9 Acute upper respiratory infection, unspecified

== ENCOUNTER 2024-11-15 11:53 | Outpatient (REF) | payer OTHER, SELFPAY ==
[2024-11-15 12:08] LABS: MANUAL DIFF FLAG NO
[2024-11-15 12:53] LABS: Basophils Percent Auto 0.1 % (0-2); Eosinophils Absolute Auto 0.1 X10*3/uL (0.0-0.4); Eosinophils Percent Auto 1.5 % (0-4); Hematocrit 39.4 % (37.0-47.0); Imm Gran Abs Auto 0.02 X10*3/uL (0.00-0.03); Imm Gran Pct Auto 0.3 % (0.0-0.4); Lymphocytes Absolute Auto 2.3 X10*3/uL (1.2-4.9); Lymphocytes Percent Auto 32.6 % (20-40); Mean Corpuscular Hemoglobin 29.6 pg (27.0-33.0); Mean Corpuscular Volume 89.7 fL (80.0-98.0); Mean Platelet Volume 8.6 fL (9.4-12.3); Monocytes Absolute Auto 0.4 X10*3/uL (0.1-1.2); Monocytes Percent Auto 6.2 % (2-11); Neutrophils Absolute Auto 4.2 x10*3/uL (2.0-8.3); Neutrophils Percent Auto 59.3 % (45-73); Platelet Count 246 X10*3/uL (160-400); Red Blood Count 4.39 X10*6/uL (4.20-5.50); Red Cell Distribution Width 12.8 % (11.0-16.0); White Blood Count 7.1 X10*3/uL (4.8-10.8)
[2024-11-15 13:12] LABS: Anion Gap 7 (12-20)
[2024-11-15 13:20] LABS: Alanine Aminotransferase 13 U/L (0-31); Albumin Level 4.2 g/dL (3.5-5.0); Alkaline Phosphatase 101 U/L (39-117); Aspartate Amino Transferase 21 U/L (5-31); Bilirubin Total 0.4 mg/dL (0.0-1.0); Blood Urea Nitrogen 12 mg/dL (9-16); Calcium 9.5 mg/dL (8.4-10.2); Carbon Dioxide 33 mmol/L (22-29); Chloride 107 mmol/L (96-108); Estimated Glomerular Filt Rate > 60; Glucose Random 59 mg/dL (60-115); Lipase 19 U/L (8-78); Potassium 3.9 mmol/L (3.3-5.1); Sodium 143 mmol/L (135-145); Total Protein 7.7 g/dL (6.5-8.0)
[2024-11-15 13:32] LABS: ~HepC Num1 0.51 S/CO (0.00-0.79); ~Hepatitis C Antibody Nonreactive (Nonreactive)
[2024-11-15 13:35] LABS: Amylase 56 U/L (28-100)
[2024-11-15 13:40] LABS: Ferritin 75 ng/mL (10-250); TSH reflex Free T4 0.59 uIU/mL (0.32-4.0)
[2024-11-15 13:43] LABS: Vitamin B12 953 pg/mL (200-900)
--- OUTSIDE RECORDS SUMMARY | 2024-11-15 13:57 | XMS_ITS | Clinical Summary ---
Author Organization [facility] it Address [address] [place] [address] Care Team Providers Care Cotton Dispatcher Name Role Phone Unavailable Primary Care Provider [...]
[2024-11-17 14:07] LABS: HCV Log PCR <1.18 NOT DETECTED Log IU/mL (NOT DETECTED); HepC Viral Load <15 NOT DETECTED IU/mL (NOT DETECTED)
[2024-11-19 17:23] LABS: Vitamin D 25-OH, D2 <4 ng/mL; Vitamin D 25-OH, D3 40 ng/mL; Vitamin D 25-OH, Total 40 ng/mL (30-100)
== END 2024-11-15 11:54 | disposition home or self-care (01) ==
LOC: HO.LAB 11:53
PROVIDERS: PCP Internal Medicine; Visit Provider Internal Medicine
DX: D50.9 Iron deficiency anemia, unspecified (principal); Z20.2 Contact with and (suspected) exposure to infections with a predominantly sexual mode of transmission; F33.2 Major depressive disorder, recurrent severe without psychotic features; R73.01 Impaired fasting glucose; R79.89 Other specified abnormal findings of blood chemistry; K64.9 Unspecified hemorrhoids; J02.9 Acute pharyngitis, unspecified; E66.9 Obesity, unspecified; F41.1 Generalized anxiety disorder; F41.0 Panic disorder [episodic paroxysmal anxiety]
CPT/HCPCS: 36415; 80053; 82150; 82306; 82607; 82728; 83690; 84443; 85025; 86803; 87522

== ENCOUNTER 2024-11-16 11:21 | Outpatient (REF) | payer OTHER, SELFPAY ==
--- OUTSIDE RECORDS SUMMARY | 2024-11-16 14:43 | XMS_ITS | Clinical Summary ---
Author Organization [facility] it Address [address] [place] [address] Care Team Providers Care Psychological Operations Name Role Phone Unavailable Primary Care Provider [...]
[2024-11-17 10:59] LABS: LDL Cholesterol Direct 105 mg/dL (<100)
== END 2024-11-16 11:22 | disposition home or self-care (01) ==
LOC: HO.LAB 11:21
PROVIDERS: PCP Internal Medicine; Visit Provider Internal Medicine
DX: D50.9 Iron deficiency anemia, unspecified (principal); K64.9 Unspecified hemorrhoids; J02.9 Acute pharyngitis, unspecified; F41.1 Generalized anxiety disorder; F41.0 Panic disorder [episodic paroxysmal anxiety]; F33.2 Major depressive disorder, recurrent severe without psychotic features; E66.9 Obesity, unspecified
CPT/HCPCS: 36415; 83721

== ENCOUNTER 2024-12-07 09:02 | Outpatient (AMB) | payer OTHER, SELFPAY ==
--- NOTE | 2024-12-07 09:11 | A.OFFPC_ITS ---
Intake Visit Reasons: Discuss labs Tower Operator Required: No Allergies mannitol [From ZOMETA] Allergy (Severe, Verified 12/07/24 09:12) DIFFICULTY SWALLOWING water for injection,sterile [From ZOMETA] Allergy (Severe, Verified 12/07/24 09:12) DIFFICULTY SWALLOWING zoledronic acid [From ZOMETA] Allergy (Severe, Verified 12/07/24 09:12) DIFFICULTY SWALLOWING latex [Latex] Allergy (Intermediate, Verified 12/07/24 09:12) RASH hydroxyzine [From VISTARIL] Allergy (Mild, Verified 12/07/24 09:12) SWELLING Medication List - Last Reconciled 12/07/24 by Venancio Aldana MD clonazepam 0.5 mg PO DAILY@1600 clonazepam 1 mg PO BID gabapentin 400 mg PO TID ibuprofen 400 mg (2 x 200 mg) PO Q8H PRN lamotrigine 100 mg PO BEDTIME meclizine 25 mg PO BID-TID PRN 90 days naproxen 375 mg PO BID PRN sennosides (Senna Lax) 8.6 mg PO BID PRN venlafaxine ER mg PO Tobacco use date assessed: 10/18/24 Dental Screening Dental Screen Date: 10/18/24 HPI Discuss labs HPI Details History - The patient is a 54-year-old female pr esenting with challenges in obtaining her prescribed medication injections due to insurance coverage issues. - She initially managed her condition wi th wagovey 2 mg injections, but insurance no longer covers these following a dosage change in October. - Attempts to switch to Zepbound were un successful due to similar coverage problems. - She reported minor weight gain of 5 po unds during the interruption of ication, linked to recent eating patterns. - Current weight is 181.8 pounds at a he ight of 5'3 . - A previous low blood glucose reading o f 59 was noted, with no recurring pattern of hypoglycemia detected. Problem List - Difficulty obtaining medications secon michelle to insurance challenges - Fluctuating blood glucose levels - Weight gain - Vitamin B12 supplementation not necess kiera Patient Instructions - Check with the pharmacy regarding the availability of the medication prescription. - If difficulties persist with obtaining medication, contact me for further assistance. - Monitor blood glucose levels and repor t any consistent low readings or symptoms of hypoglycemia. - Decrease vitamin B12 supplement intake to less frequent usage if currently taking daily. - Follow lifestyle and dietary modificat ions as needed to manage weight. - Note that appointments will b e conducted over the phone. Review of Systems - General: No fever no chills - Neurological: No headaches no dizziness - Ear nose throat: No sore throat no hearing difficulty no ear pain - Cardiovascular: No syncope, no chest pain, no palpitations - Gastrointestinal: No nausea vomiting or diarrhea - Endocrine: No polyuria polydipsia no heat intolerance - Genitourinary: No dysuria , no blood in urine PFSH Medical History Acute respiratory disease Gallstones Depression Anxiety Surgical History History of laparoscopic cholecystectomy (~05/29/24) Hx of colonoscopy History of tubal ligation Hx of right breast biopsy Hx of section Social History Household Members: None Housing: House Are you a primary home health care case manager to a significant other at home: No Do you presently have visiting nurse or other home services: No Alcohol intake: never Comment: counts correct Patient Tobacco Use Status: Current everyday Tobacco user Tobacco use type: Smokeless Tobacco Years Smoked: 8 years e-Cigarette/Vaping Use: Currently Using Second Hand Smoke Exposure: No service: No Current occupational status: disabled 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 Cognitive needs: No Hearing needs: No Vision needs: No Female Reproductive History Menstrual Age of Menarche: 12 Questionnaire Thrive Questionnaire Date Thrive assessed: 10/16/24 I am a: Patient What is your living situation today?: I have a steady place to live Within the past 12 months, did the food you bought not last and you didn't have the money to get more?: Never true Within the past 12 months, did you worry whether your food would run out before you got money to buy more?: Never true Do you have trouble paying for medicines?: No Do you have trouble getting transportation to medical appointments?: No Do you have trouble paying your heating and electricity bill?: No Do you have trouble taking care of your child, family member or friend?: No Do you have trouble with day-to-day activities such as bathing, preparing meals, shopping, managing finances, etc.?: I choose not to answer this question Are you currently unemployed and looking for a job?: No Are you interested in more education?: No Please select the resources that you would like help with: None Currently or been in a relationship where the following occur: No concerns reported THRIVE Score: 0 EARLENE-7 AMB Questionnaire EARLENE-7 Date EARLENE - 7 assessed: 12/07/24 Feeling nervous, anxious, or on edge: 1 = Several days Not being able to stop or control worryin = Several days Worrying too much about different things: 1 = Several days Trouble relaxin = Several days Being so restless that it is hard to sit still: 1 = Several days Becoming easily annoyed or irritable: 3 = Nearly every day Feeling afraid as if something awful might happen: 1 = Several days Total EARLENE-7 score (0-4 normal; 5-9 mild; 10-14 moderate; 15-21 severe): 9 Source: Developed by Drs. Wiley Gonzalez, Alyssa Amaro, Skyler Chao and colleagues, with an educational ragini from [employer]. Physical exam (Primary Care) Tobacco/Smoking Status: Tobacco use Status Tobacco use date assessed 10/18/24 12/07/24 09:13 Patient Tobacco Use Status Current everyday Tobacco 12/07/24 09:13 Tobacco use type Smokeless Tobacco 12/07/24 09:13 e-Cigarette/Vaping Use Currently Using 12/07/24 09:13 Thrive Assessment: Date of Thrive Assessment Date Thrive assessed 10/16/24 12/07/24 09:13 Currently or been in a relationship where the following occur: No concerns reported Telehealth Telehealth Telehealth Platform: [facility] Location of provider rendering services: practice address Location of patient: address on file Patient Identification confirmed using: Name, : Yes Telehealth method: voice only Patient verbally consented to treatment: Yes Patient verbally consented to billing insurance company: Yes Patient informed of any privacy concerns related to visit: Yes Minutes spent on Phone/Video with Pt.: 12 Coding Level of Care Code Tele Est Pt Level 3 (82855) Diagnoses Class 1 obesity due to excess calories without serious comorbidity with body mass index (BMI) of 32.0 to 32.9 in adult E66.09; Z68.32 Obesity classification: adult class 1 (BMI 30 - 34.9) Serious obesity comorbidity presence: without serious comorbidity Body mass index: BMI 32.0-32.9 Assessment & Plan Assessment & Plan (1) Obesity due to excess calories: Code(s): E66.09 - Other obesity due to excess calories Category: Medical Qualifiers: Obesity classification: adult class 1 (BMI 30 - 34.9) Serious obesity comorbidity presence: without serious comorbidity Body mass index: BMI 32.0- 32.9 Qualified Code(s): E66.09 - Other obesity due to excess calories; Z68.32 - Body mass index [BMI] 32.0-32.9, adult Plan History - The patient is a 54-year-old female presenting with challenges in obtaining her prescribed medication injections due to insurance coverage issues. - She initially managed her condition with wagovey 2 mg injections, but insurance no longer covers these following a dosage change in October. - Attempts to switch to Zepbound were unsuccessful due to similar coverage problems. - She reported minor weight gain of 5 pounds during the interruption of medication, linked to recent eating patterns. - Current weight is 181.8 pounds at a height of 5'3 . - A previous low blood glucose reading of 59 was noted, with no recurring pattern of hypoglycemia detected. Problem List - Difficulty obtaining medications secondary to insurance challenges - Fluctuating blood glucose levels - Weight gain - Vitamin B12 supplementation not necessary Patient Instructions - Check with the pharmacy regarding the availability of the medication prescription. - If difficulties persist with obtaining medication, contact me for further assistance. - Monitor blood glucose levels and report any consistent low readings or symptoms of hypoglycemia. - Decrease vitamin B12 supplement intake to less frequent usage if currently taking daily. - Follow lifestyle and dietary modifications as needed to manage weight. - Note that appointments will be conducted over the phone. Medications: Refilled semaglutide for 4 weeks 2 mg (0.75 mL) subcut QWEEK 90 days 9.75 mL 2RF E66.09 - Other obesity due to excess calories, R73.01 - Impaired fasting glucose, Z68.32 - Body mass index [BMI] 32.0-32.9, adult
--- OUTSIDE RECORDS SUMMARY | 2024-12-07 09:17 | XMS_ITS | Clinical Summary ---
Author Organization [facility] it Address [address] [place] [address] Care Team Providers Care Cross Tie Maker Name Role Phone Unavailable Primary Care Provider [...] - 2023-2 5 season) 2024 Influenza Vaccine (Season Ended) 2025 HIB Vaccines Aged Out No longer eligi [...]
== END 2024-12-07 09:49 | disposition home or self-care (01) ==
LOC: HO.HMCC 09:03
PROVIDERS: PCP Internal Medicine; Visit Provider Internal Medicine
DX: E66.09 Other obesity due to excess calories (principal); Z68.32 Body mass index [BMI] 32.0-32.9, adult

== ENCOUNTER → 2024-12-07 09:02 | Outpatient (BNVA) | payer OTHER, SELFPAY | PROVIDERS: PCP Internal Medicine; Visit Provider Internal Medicine ==

== ENCOUNTER 2025-01-09 12:23 | Outpatient (AMB) | payer OTHER, SELFPAY ==
--- NOTE | 2025-01-09 12:24 | A.OFFPC_ITS ---
Vital Signs 01/09/25 12:25 Height 5 ft 4 in Weight 190 lb 4 oz BMI 32.7 BP 130/86 Blood Pressure Location Lt brachial Position Sitting Pulse 94 Pulse Source Pulse Oximeter Pulse Oximetry (%) 98 Oxygen Delivery Method Room Air Intake Visit Reasons: Office Visit Allergies mannitol [From ZOMETA] Allergy (Severe, Verified 01/09/25 12:32) DIFFICULTY SWALLOWING water for injection,sterile [From ZOMETA] Allergy (Severe, Verified 01/09/25 12:32) DIFFICULTY SWALLOWING zoledronic acid [From ZOMETA] Allergy (Severe, Verified 01/09/25 12:32) DIFFICULTY SWALLOWING latex [Latex] Allergy (Intermediate, Verified 01/09/25 12:32) RASH hydroxyzine [From VISTARIL] Allergy (Mild, Verified 01/09/25 12:32) SWELLING Medication List - Last Reconciled 01/09/25 by Venancio Aldana MD clonazepam 0.5 mg PO DAILY@1600 clonazepam 1 mg PO BID gabapentin 400 mg PO TID ibuprofen 400 mg (2 x 200 mg) PO Q8H PRN lamotrigine 100 mg PO BEDTIME meclizine 25 mg PO BID-TID PRN 90 days naproxen 375 mg PO BID PRN sennosides (Senna Lax) 8.6 mg PO BID PRN valacyclovir 1,000 mg PO BID 1 day venlafaxine ER mg PO Tobacco use date assessed: 01/09/25 Dental Screening Dental Screen Date: 01/09/25 Did you have a dental visit in the last 12 months?: Yes Did you have a dental problem in the last 6 months where you did not have access to dental care?: No Was dental information given to patient?: Patient has dentist HPI Office Visit HPI Details History - The patient is a 54-year-old female pr esenting with an allergic reaction characterized by itchy bumps appearing over the last three days. The patient reports these hives occur on her legs and arms, but they come and go. She notes that they are very itchy. - She reported waking up with a bump on her head this morning, which was concerning. This bump, noted to be similar to her other itchy spots, could also be related to her allergic reaction. - The patient has not taken any medicati on for these symptoms at the time of the visit. - Past medical history is significant fo r obesity, for which she was previously on Semaglutide (specifically Ozempic); however, she has not taken it for three to four months. Due to insurance declining the refill . - The patient has a history of impaired fasting glucose and osteoarthritis, which were acknowledged during the visit. She is having challenges in obtaining her prescribed medication injections due to insurance coverage issues. We tried Zepbound scraped which was also unsuccessful due to similar coverage problems. Problem List - Obesity - Osteoarthritis - Allergic Urticaria - Impaired Fasting Glucose - Difficulty obtaining medications secon michelle to insurance challenges Patient Instructions - Take Benadryl 25 mg, 1-2 tablets at [facility] for allergic symptoms. - A prescription for prednisone has been provided, take one tablet daily for five days. - Avoid starting Wegovy until the allerg ic reaction is resolved. - Contact the office if hives worsen or persist despite the current treatment. - Check with the pharmacy regarding the availability of the medication prescription. - If difficulties persist with obtaining medication, contact me for further assistance. Review of Systems - General: No fever no chills - Neurological: No headaches no dizziness - Ear nose throat: No sore throat no hearing difficulty no ear pain - Cardiovascular: No syncope, no chest pain, no palpitations - Gastrointestinal: No nausea vomiting or diarrhea - Endocrine: No polyuria polydipsia no heat intolerance - Genitourinary: No dysuria , no blood in urine Physical Exam - General: No acute distress - HEENT: No acute findings - Neck: Supple - Respiratory system: Able to talk in f ull sentences, no audible wheeze - Cardiovascular: S1-S2 regular in rate and rhythm - Gastrointestinal: No pain - Extremities: No new findings - 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 x3 motor se nsory intact - Skin: Normal turgor, raised patches pr uritic 1 left forehead left upper eyelid medial corner, arms and legs No swelling of lips or tongue PFSH Medical History Acute respiratory disease Gallstones Depression Anxiety Surgical History History of laparoscopic cholecystectomy (~05/29/24) Hx of colonoscopy History of tubal ligation Hx of right breast biopsy Hx of section Social History Household Members: None Housing: House Are you a primary healthcare administrative assistant to a significant other at home: No Do you presently have visiting nurse or other home services: No Alcohol intake: never Comment: counts correct Patient Tobacco Use Status: Current everyday Tobacco user Tobacco use type: Smokeless Tobacco Years Smoked: 8 years e-Cigarette/Vaping Use: Currently Using Second Hand Smoke Exposure: No service: No Current occupational status: disabled 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 How often do you have a drink containing alcohol?: Never 3. How often do you have six or more drinks on one occasion?: Never Total Score: 0 Score Reviewed/Action Taken: Yes EARLENE-7 AMB Questionnaire EARLENE-7 Date EARLENE - 7 assessed: 12/07/24 Source: Developed by Drs. Wiley Gonzalez, Alyssa Amaro, Skyler Chao and colleagues, with an educational ragini from [employer] Physical exam (Primary Care) Vital Signs: Last Vital Signs Pulse 94 01/09/25 12:25 BP 130/86 01/09/25 12:25 Pulse Ox 98 01/09/25 12:25 Oxygen Delivery Method Room Air 01/09/25 12:25 BMI result Body Mass Index 32.7 Tobacco/Smoking Status: Tobacco use Status Tobacco use date assessed 01/09/25 01/09/25 12:26 Patient Tobacco Use Status Current everyday Tobacco 01/09/25 12:26 Tobacco use type Smokeless Tobacco 01/09/25 12:26 e-Cigarette/Vaping Use Currently Using 01/09/25 12:26 Thrive Assessment: Date of Thrive Assessment Date Thrive assessed 10/16/24 01/09/25 12:26 Coding Level of Care Code Est Pt Level 3 (58436) Diagnoses Urticaria L50.9 Class 1 obesity due to excess calories without serious comorbidity with body mass index (BMI) of 32.0 to 32.9 in adult E66.09; Z68.32 Body mass index: BMI 32.0-32.9 Obesity classification: adult class 1 (BMI 30 - 34.9) Serious obesity comorbidity presence: without serious comorbidity Impaired fasting blood sugar R73.01 Assessment & Plan Assessment & Plan (1) Urticaria: Code(s): L50.9 - Urticaria, unspecified Category: Medical (2) Obesity due to excess calories: Code(s): E66.09 - Other obesity due to excess calories Category: Medical Qualifiers: Body mass index: BMI 32.0-32.9 Obesity classification: adult class 1 (BMI 30 - 34.9) Serious obesity comorbidity presence: without serious comorbidity Qualified Code(s): E66.09 - Other obesity due to excess calories; Z68.32 - Body mass index [BMI] 32.0-32.9, adult (3) Impaired fasting blood sugar: Code(s): R73.01 - Impaired fasting glucose Category: Medical Plan History - The patient is a 54-year-old female presenting with an allergic reaction characterized by itchy bumps appearing over the last three days. The patient reports these hives occur on her legs and arms, but they come and go. She notes that they are very itchy. - She reported waking up with a bump on her head this morning, which was concerning. This bump, noted to be similar to her other itchy spots, could also be related to her allergic reaction. - The patient has not taken any medication for these symptoms at the time of the visit. - Past medical history is significant for obesity, for which she was previously on Semaglutide (specifically Ozempic); however, she has not taken it for three to four months. Due to insurance declining the refill . - The patient has a history of impaired fasting glucose and osteoarthritis, which were acknowledged during the visit. She is having challenges in obtaining her prescribed medication injections due to insurance coverage issues. We tried Zepbound scraped which was also unsuccessful due to similar coverage problems. Problem List - Obesity - Osteoarthritis - Allergic Urticaria - Impaired Fasting Glucose - Difficulty obtaining medications secondary to insurance challenges Patient Instructions - Take Benadryl 25 mg, 1-2 tablets at night for allergic symptoms. - A prescription for prednisone has been provided, take one tablet daily for five days. - Avoid starting Wegovy until the allergic reaction is resolved. - Contact the office if hives worsen or persist despite the current treatment. - Check with the pharmacy regarding the availability of the medication prescription. - If difficulties persist with obtaining medication, contact me for further assistance. Medications: New semaglutide (weight loss) (Petra) administer weeks 1 through 4 of therapy 0.25 mg (0.5 mL) subcut QWEEK 2 mL 0RF E66.09 - Other obesity due to excess calories, M19.071 - Primary osteoarthritis, right ankle and foot, M79.89 - Other specified soft tissue disorders, R73.01 - Impaired fasting glucose, Z68.32 - Body mass index [BMI] 32.0-32.9, adult prednisone 20 mg PO DAILY 5 days 5 tabs 0RF
[2025-01-09 12:25] VITALS: BP 130/86; PULSE 94; O2SAT 98; BMI 32.7
--- OUTSIDE RECORDS SUMMARY | 2025-01-09 13:43 | XMS_ITS | Clinical Summary ---
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
== END 2025-01-09 13:34 | disposition home or self-care (01) ==
LOC: HO.HMCC 12:23
PROVIDERS: PCP Internal Medicine; Visit Provider Internal Medicine
DX: L50.9 Urticaria, unspecified (principal); E66.09 Other obesity due to excess calories; Z68.32 Body mass index [BMI] 32.0-32.9, adult; R73.01 Impaired fasting glucose

== ENCOUNTER → 2025-01-09 12:23 | Outpatient (BNVA) | payer OTHER, SELFPAY | PROVIDERS: PCP Internal Medicine; Visit Provider Internal Medicine | DX: L50.9 Urticaria, unspecified (principal); E66.09 Other obesity due to excess calories; Z68.32 Body mass index [BMI] 32.0-32.9, adult; R73.01 Impaired fasting glucose | CPT/HCPCS: 99212 ==

== ENCOUNTER 2025-02-28 10:27 | Outpatient (AMB) | payer OTHER, SELFPAY ==
--- NOTE | 2025-02-28 10:36 | MHC.PC.OV ---
Vital Signs 02/28/25 10:39 Height 5 ft 4 in Weight 184 lb BMI 31.6 BP 100/70 Blood Pressure Location Rt brachial Position Sitting Respiration 15 Pulse 99 Pulse Source Pulse Oximeter Temp 98.3 F Temp Source Oral Pulse Oximetry (%) 95 Oxygen Delivery Method Room Air Intake Visit Reasons: PE Allergies mannitol (From ZOMETA) Allergy (Severe, Verified 02/28/25 10:37) DIFFICULTY SWALLOWING water for injection,sterile (From ZOMETA) Allergy (Severe, Verified 02/28/25 10:37) DIFFICULTY SWALLOWING zoledronic acid (From ZOMETA) Allergy (Severe, Verified 02/28/25 10:37) DIFFICULTY SWALLOWING latex (Latex) Allergy (Intermediate, Verified 02/28/25 10:37) RASH hydroxyzine (From VISTARIL) Allergy (Mild, Verified 02/28/25 10:37) SWELLING Medication List - Last Reconciled 02/28/25 by Venancio Aldana MD clonazepam 1 mg PO BID gabapentin 400 mg PO TID lamotrigine 100 mg PO BEDTIME meclizine 25 mg PO BID-TID PRN 90 days naproxen 375 mg PO BID PRN sennosides (Senna Lax) 8.6 mg PO BID PRN valacyclovir 1,000 mg PO BID 1 day venlafaxine ER mg PO Tobacco use date assessed: 02/28/25 Dental Screening Dental Screen Date: 02/28/25 Did you have a dental visit in the last 12 months?: Yes Did you have a dental problem in the last 6 months where you did not have access to dental care?: No Was dental information given to patient?: Patient has dentist HPI PE HPI Details Physical exam appointment - The patient is a 54-year-old female presenting for a wellness visit and management of chronic conditions. - Chronic hives have been present for approximately one and a half to two months, characterized by intermittent episodes of itching and rash, managed with Claritin and occasionally Benadryl. - colonoscopy last year, with a recommendation for follow-up in three years due to inadequate bowel preparation. - Osteoarthritis is present, with symptoms including knee pain upon bending and nodules on the hands. - Menopausal symptoms include hot flashes, which are exacerbated by the summer heat, and the patient has been advised to discuss hormone therapy with her SVP CHIEF MARKETING OFFICER. - Preventative care measures include a mammogram performed last year and a colonoscopy with a follow-up recommendation in three years. Health Maintenance - Mammogram performed in February of last year, up to date. - Colonoscopy performed last year with a recommendation for repeat in three years due to inadequate preparation. - Labs in November showed normal CBC, electrolytes, kidney function, liver enzymes, and LDL; low blood sugar without symptoms; high vitamin B12 levels. Medications - Claritin for chronic hives [id number] - Gabapentin for psychiatric management - Naproxen for osteoarthritis pain through PCP office - valacyclovir for cold sores, taken as needed through PCP office - Meclizine for vertigo, taken as needed through PCP office was - clonazepam through Psychiatry along with venlafaxine and lamotrigine Diagnostic results - Labs: CBC normal, electrolytes normal, kidney function normal, liver enzymes normal, LDL normal, low blood sugar without symptoms, high vitamin B12 levels. - Screening: Mammogram up to date as of February last year. Patient Instructions - Continue taking Claritin daily for hives and consider Benadryl at night if needed. - Schedule an appointment with an exposure machine operator to evaluate chronic hives. - Discuss hormone therapy options with SVP CHIEF MARKETING OFFICER for menopausal symptoms. - Follow up on colonoscopy in three years as recommended. - Maintain current medication regimen and consult if hives worsen before seeing an exposure machine operator. Review of Systems - General: No fever no chills - Neurological: No headaches no dizziness - Ear nose throat: No sore throat no hearing difficulty no ear pain - Cardiovascular: No syncope, no chest pain, no palpitations - Gastrointestinal: No nausea vomiting or diarrhea - Endocrine: No polyuria polydipsia no heat intolerance - Genitourinary: No dysuria - Skin: No new complaints Physical Exam General: Cooperative, healthy appearing, comfortable, no acute distress Orientation: Patient oriented x3 Head: Normal to inspection Ears: Within normal limit visually Nose: Normal external nose present Face and sinus: Normal facial exam Eyes: Appearance normal, extraocular movement intact pupils reactive Neck: Normal visual inspection and supple Respiratory: Normal respiratory effort and able to speak in complete sentences. Clear to auscultation, no stridor Cardiovascular: S1 and S2 RRR Breast exam through OBGYN GI: Normal to inspection. Soft to palpation and nontender Skin: Turgor normal, multiple tattoos all over body Neuro: Patient oriented x3, motor sensory intact, balance intact, tandem pass Extremities: Normal to inspection, full range of motion present PFSH Medical History Acute respiratory disease Gallstones Depression Anxiety Surgical History History of laparoscopic cholecystectomy (~05/29/24) Hx of colonoscopy History of tubal ligation Hx of right breast biopsy Hx of section Social History Household Members: None Housing: House Are you a primary manager critical care to a significant other at home: No Do you presently have visiting nurse or other home services: No Alcohol intake: never Comment: counts correct Patient Tobacco Use Status: Current everyday Tobacco user Tobacco use type: Smokeless Tobacco Years Smoked: 8 years e-Cigarette/Vaping Use: Currently Using Second Hand Smoke Exposure: No service: No Current occupational status: disabled 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 Cognitive needs: No Hearing needs: No Vision needs: No Female Reproductive History Menstrual Age of Menarche: 12 Questionnaire Thrive Questionnaire Date Thrive assessed: 10/16/24 I am a: Patient What is your living situation today?: I have a steady place to live Within the past 12 months, did the food you bought not last and you didn't have the money to get more?: Never true Within the past 12 months, did you worry whether your food would run out before you got money to buy more?: Never true Do you have trouble paying for medicines?: No Do you have trouble getting transportation to medical appointments?: No Do you have trouble paying your heating and electricity bill?: No Do you have trouble taking care of your child, family member or friend?: No Do you have trouble with day-to-day activities such as bathing, preparing meals, shopping, managing finances, etc.?: I choose not to answer this question Are you currently unemployed and looking for a job?: No Are you interested in more education?: No Please select the resources that you would like help with: None Currently or been in a relationship where the following occur: No concerns reported THRIVE Score: 0 EARLENE-7 AMB Questionnaire EARLENE-7 Date EARLENE - 7 assessed: 12/07/24 Source: Developed by Drs. Wiley LAlyssa Bernabe Kurt Kroenke and colleagues, with an educational ragini from [employer]. Physical exam (Primary Care) Vital Signs: Last Vital Signs Temp 98.3 F 02/28/25 10:39 Pulse 99 02/28/25 10:39 Resp 15 02/28/25 10:39 BP 100/70 02/28/25 10:39 Pulse Ox 95 02/28/25 10:39 Oxygen Delivery Method Room Air 02/28/25 10:39 BMI result Body Mass Index 31.6 Tobacco/Smoking Status: Tobacco use Status Tobacco use date assessed 02/28/25 02/28/25 10:42 Patient Tobacco Use Status Current everyday Tobacco 02/28/25 10:41 Tobacco use type Smokeless Tobacco 02/28/25 10:41 e-Cigarette/Vaping Use Currently Using 02/28/25 10:41 Thrive Assessment: Date of Thrive Assessment Date Thrive assessed 10/16/24 02/28/25 10:41 Currently or been in a relationship where the following occur: No concerns reported Coding Level of Care Code Est Pt Level 3 (96349) Est Pt Prev Care 40-64y(67661) Diagnoses Encounter for general adult medical examination with abnormal findings Z00.01 Recurrent periodic urticaria L50.8 Hot flashes R23.2 Recurrent cold sores B00.1 Stress incontinence N39.3 Chronic constipation K59.09 Class 1 obesity due to excess calories without serious comorbidity with body mass index (BMI) of 32.0 to 32.9 in adult E66.09; Z68.32 Obesity classification: adult class 1 (BMI 30 - 34.9) Serious obesity comorbidity presence: without serious comorbidity Body mass index: BMI 32.0-32.9 Impaired fasting blood sugar R73.01 Major depressive disorder, recurrent, severe w/o psychotic behavior F33.2 Generalized anxiety disorder with panic attacks F41.1; F41.0 Assessment & Plan Assessment & Plan (1) Encounter for general adult medical examination with abnormal findings: Code(s): Z00.01 - Encounter for general adult medical examination with abnormal findings Category: Medical (2) Recurrent periodic urticaria: Code(s): L50.8 - Other urticaria Category: Medical (3) Hot flashes: Code(s): R23.2 - Flushing Category: Medical (4) Recurrent cold sores: Code(s): B00.1 - Herpesviral vesicular dermatitis Category: Medical (5) Stress incontinence: Code(s): N39.3 - Stress incontinence (female) (male) Category: Medical (6) Chronic constipation: Code(s): K59.09 - Other constipation Category: Medical (7) Obesity due to excess calories: Code(s): E66.09 - Other obesity due to excess calories Category: Medical Qualifiers: Obesity classification: adult class 1 (BMI 30 - 34.9) Serious obesity comorbidity presence: without serious comorbidity Body mass index: BMI 32.0-32.9 Qualified Code(s): E66.09 - Other obesity due to excess calories; Z68.32 - Body mass index [BMI] 32.0-32.9, adult (8) Impaired fasting blood sugar: Code(s): R73.01 - Impaired fasting glucose Category: Medical (9) Major depressive disorder, recurrent, severe w/o psychotic behavior: Code(s): F33.2 - Major depressive disorder, recurrent severe without psychotic features Category: Medical (10) Generalized anxiety disorder with panic attacks: Code(s): F41.1 - Generalized anxiety disorder; F41.0 - Panic disorder [episodic paroxysmal anxiety] Category: Medical Plan Physical exam appointment - The patient is a 54-year-old female presenting for a wellness visit and management of chronic conditions. - Chronic hives have been present for approximately one and a half to two months, characterized by intermittent episodes of itching and rash, managed with Claritin and occasionally Benadryl. - colonoscopy last year, with a recommendation for follow-up in three years due to inadequate bowel preparation. - Osteoarthritis is present, with symptoms including knee pain upon bending and nodules on the hands. - Menopausal symptoms include hot flashes, which are exacerbated by the summer heat, and the patient has been advised to discuss hormone therapy with her SVP CHIEF MARKETING OFFICER. - Preventative care measures include a mammogram performed last year and a colonoscopy with a follow-up recommendation in three years. Health Maintenance - Mammogram performed in February of last year, up to date. - Colonoscopy performed last year with a recommendation for repeat in three years due to inadequate preparation. - Labs in November showed normal CBC, electrolytes, kidney function, liver enzymes, and LDL; low blood sugar without symptoms; high vitamin B12 levels. Medications - Claritin for chronic hives [id number] - Gabapentin for psychiatric management - Naproxen for osteoarthritis pain through PCP office - valacyclovir for cold sores, taken as needed through PCP office - Meclizine for vertigo, taken as needed through PCP office was - clonazepam through Psychiatry along with venlafaxine and lamotrigine Diagnostic results - Labs: CBC normal, electrolytes normal, kidney function normal, liver enzymes normal, LDL normal, low blood sugar without symptoms, high vitamin B12 levels. - Screening: Mammogram up to date as of February last year. Patient Instructions - Continue taking Claritin daily for hives and consider Benadryl at night if needed. - Schedule an appointment with an exposure machine operator to evaluate chronic hives. - Discuss hormone therapy options with SVP CHIEF MARKETING OFFICER for menopausal symptoms. - Follow up on colonoscopy in three years as recommended. - Maintain current medication regimen and consult if hives worsen before seeing an exposure machine operator. Orders: Referrals SVP CHIEF MARKETING OFFICER Referral Z01.419 - Encounter for gynecological examination (general) (routine) without abnormal findings Allergy & Immunology Referral L50.8 - Other urticaria Medications: Refilled valacyclovir 1,000 mg PO BID 2 tabs 0RF 1 day
[2025-02-28 10:39] VITALS: BP 100/70; PULSE 99; RESP 15; TEMP 36.8; O2SAT 95; BMI 31.6
--- OUTSIDE RECORDS SUMMARY | 2025-02-28 12:14 | XMS_ITS | Clinical Summary ---
Author Organization [facility] it Address [address] [place] [address] Care Team Providers Care White Work Cleaner Name Role Phone Unavailable Primary Care Provider [...]
== END 2025-02-28 10:59 | disposition home or self-care (01) ==
LOC: HO.HMCC 10:28
PROVIDERS: PCP Internal Medicine; Visit Provider Internal Medicine
DX: Z00.01 Encounter for general adult medical examination with abnormal findings (principal); B00.1 Herpesviral vesicular dermatitis; L50.8 Other urticaria; F33.2 Major depressive disorder, recurrent severe without psychotic features; R23.2 Flushing; N39.3 Stress incontinence (female) (male); K59.09 Other constipation; E66.09 Other obesity due to excess calories; Z68.32 Body mass index [BMI] 32.0-32.9, adult; R73.01 Impaired fasting glucose; F41.1 Generalized anxiety disorder; F41.0 Panic disorder [episodic paroxysmal anxiety]

== ENCOUNTER → 2025-02-28 10:27 | Outpatient (BNVA) | payer OTHER, SELFPAY | PROVIDERS: PCP Internal Medicine; Visit Provider Internal Medicine | DX: Z00.01 Encounter for general adult medical examination with abnormal findings (principal); L50.8 Other urticaria; M25.561 Pain in right knee; M25.562 Pain in left knee; R23.2 Flushing; B00.1 Herpesviral vesicular dermatitis; N39.3 Stress incontinence (female) (male); K59.09 Other constipation; E66.09 Other obesity due to excess calories; E66.811 Obesity, class 1; R73.01 Impaired fasting glucose; F33.2 Major depressive disorder, recurrent severe without psychotic features; F41.1 Generalized anxiety disorder; F41.0 Panic disorder [episodic paroxysmal anxiety]; Z78.0 Asymptomatic menopausal state; Z68.32 Body mass index [BMI] 32.0-32.9, adult | CPT/HCPCS: 99212; 99396 ==

== ENCOUNTER 2025-07-27 14:23 | Outpatient (AMB) | payer OTHER, SELFPAY ==
--- NOTE | 2025-07-27 13:49 | A.OFFVIS_ITS ---
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 Have questions on menopause Booth Usher Required: No Information Interpreted: non-clinical & clinical Open Claims Representative: Open Claims Representative Present (Citlali Sims LPN) Accompanied by: Self / Same As Patient Allergies mannitol (From ZOMETA) Allergy (Severe, Verified 07/27/25 14:37) DIFFICULTY SWALLOWING water for injection,sterile (From ZOMETA) Allergy (Severe, Verified 07/27/25 14:37) DIFFICULTY SWALLOWING zoledronic acid (From ZOMETA) Allergy (Severe, Verified 07/27/25 14:37) DIFFICULTY SWALLOWING latex (Latex) Allergy (Intermediate, Verified 07/27/25 14:37) RASH hydroxyzine (From VISTARIL) Allergy (Mild, Verified 07/27/25 14:37) SWELLING Medication List - Last Reconciled 07/27/25 by Rosalinda Bruce CNM clonazepam 1 mg PO BID gabapentin 400 mg PO TID lamotrigine 100 mg PO BEDTIME meclizine 25 mg PO BID-TID PRN 90 days naproxen 375 mg PO BID PRN valacyclovir 1,000 mg PO BID 1 day venlafaxine ER mg PO Is last menstrual period known: Yes Last menstrual period: 07/27/22 Do you need a note to return to daycare/school/sports/work: No HPI Comments Details: Pt presents today for ANNUAL exam She has the following concerns: menopausal changes/hot flashes. has tried otc menopause pills with minimal effect She is not currently in a relationship. Exercise: limited, states she doesn't like to leave the house Nutrition/calcium: Contraception: post menopause- denies any abnormal vag bleedng Last Pap: 2022 , Results: Neg Last mammo: 2022, Results neg PFSH Medical History (Updated 07/27/25 @ 16:31 by Rosalinda Bruce CNM) History of self mutilation Acute respiratory disease Gallstones Depression Anxiety Surgical History (Updated 07/27/25 @ 14:40 by Citlali Sims LPN) History of rotator cuff surgery History of laparoscopic cholecystectomy (~05/29/24) Hx of colonoscopy History of tubal ligation Hx of right breast biopsy Hx of section Social History Household Members: None Housing: House Are you a primary manager care management to a significant other at home: No Do you presently have visiting nurse or other home services: No Alcohol intake: never Comment: counts correct Patient Tobacco Use Status: Current everyday Tobacco user Tobacco use type: Smokeless Tobacco Years Smoked: 8 years e-Cigarette/Vaping Use: Currently Using Second Hand Smoke Exposure: No service: No Current occupational status: disabled 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 Cognitive needs: No Hearing needs: No Vision needs: No Female Reproductive History Menstrual Age of Menarche: 12 Date of last menstrual period: 07/27/22 control method: permanent sterilization Menopause type: natural Age of menopause: 54 Total pregnancies: 4 Number of Living Children: 2 Ab spontaneous: 2 Date of last pap smear: 04/20/23 History of abnormal pap smear: No Date of Mammogram: 02/17/23 History of abnormal mammogram: No Review of Systems Const Reports no additional complaints Eyes Reports no additional complaints ENT Reports no additional complaints Card Reports no additional complaints Resp Reports no additional complaints GI Reports no additional complaints Reports as per [facility] Skin/Breast Reports system reviewed and no additional complaints, except as documented Physical Exam Vital Signs: Last Vital Signs BP 112/72 07/27/25 14:42 BMI result Body Mass Index 30.7 Const General: cooperative, healthy appearing and no acute distress Orientation/consciousness: patient oriented x3 HEENT Head: Yes normal to inspection and Yes normocephalic Ears: external ears normal General nose exam: Normal external nose present Neck Neck: Yes normal visual inspection Chest Breast/axilla inspection: normal inspection of the breasts, normal inspection of the axillae and Other (No skin changes, peau d orange, or nipple discharge noted) Breast/axilla palpation: normal palpation of the breasts, normal palpation of the axillae and no axillary lymphadenopathy Resp Effort & Inspection: normal respiratory effort and able to speak in complete sentences GI Inspection: No distended Palpation (GI): Soft to palpation, nontender and no masses Percussion: Yes normal to percussion Rectal Exam - Female: No External hemorrhoid(s) present External Female Exam: normal external appearance and normal appearance of the urethra Speculum Exam - Vagina: normal appearance of the vagina and normal vaginal discharge Speculum Exam - Cervix: normal appearance of the cervix and normal palpation (neg CMT) Bimanual exam- vagina & uterus: normal bimanual exam, normal palpation (neg CMT), uterine mobility normal and non-tender Bimanual Exam- Adnexa, other: no masses and No adnexal tenderness Skin General skin exam: other (Multiple tattoos) Neuro General: patient oriented x3 and moves all extremities Extrem General: Yes full ROM Psych Speech and movement: Normal speech and movement present Affect: normal affect Attitude: cooperative Thought process: Normal thought process present Assessment & Plan Assessment & Plan (1) Well woman exam with routine gynecological exam: Code(s): Z01.419 - Encounter for gynecological examination (general) (routine) without abnormal findings Category: Medical (2) Screening breast examination: Code(s): Z12.39 - Encounter for other screening for malignant neoplasm of breast (3) Vasomotor symptoms due to menopause: Code(s): N95.1 - Menopausal and female climacteric states Plan During the visit, the following areas of concern were addressed: Regular exercise Healthy lifestyle Menopausal/gabbie-menopausal signs and symptoms, including nonprescription strategies for management Health Maintenance and Screening -Reviewed ASCCP guidelines for Paps and yearly (bi-yearly ) pelvic exam. -Reviewed and encouraged diet and exercise for cardiovascular and bone health -Reviewed breast self-awareness. Importance of yearly mammogram after age 40 (earlier if first-degree relative with breast cancer at a younger age ) Discuss use of 3 times per week weight-bearing exercise, vitamin D3 and servings of dietary calcium daily for bone health. -continue to follow with PCP for general medical care, immunizations. Screening strategies for colon cancer after age 50. Discussion of Kegel exercises for urinary incontinence Family and personal history of cancer reviewed. Genetic screening not indicated The patient has BMI: 30 The patient is overweight. Approaches towards weight loss are discussed including burning more calories than one takes in by frequent, small meals, portion control, avoiding eating before bedtime, regular exercise with an emphasis on duration rather than intensity. RTO one year or sooner prrio Bruce CNM Note about provider documentation : If you or the patient named in this chart and are reviewing your medical notes, please note that medical documentation is often written with abbreviations and medical terminology, and directed for other providers who may be involved in your care as well. Documentation is critical to record what has happened, what tests were ordered, and so they are interpreted with the resulting diagnoses. T hese nodes have been made available for patient review but not specifically written for the patient. Important health information is always given to my patients in clinical instructions. Please review your after visit summary and our contact our clinical staff if you have any questions. Orders: Orders MM tomosynthesis screening BI 1 Month Z01.419 - Encounter for gynecological examination (general) (routine) without abnormal findings, Z12.39 - Encounter for other screening for malignant neoplasm of breast Coding Level of Care Code Est Pt Prev Care 40-64y(25953) Diagnoses Well woman exam with routine gynecological exam Z01.419 Screening breast examination Z12.39 Vasomotor symptoms due to menopause N95.1
[2025-07-27 14:42] VITALS: BP 112/72; BMI 30.7
--- OUTSIDE RECORDS SUMMARY | 2025-07-27 14:47 | XMS_ITS | Clinical Summary ---
Author Organization [facility] ity Address [address] [place] [address] Care Team Providers Care Journeyman Molder Name Role Phone Unavailable Primary Care Provider [...] 2022 Zoster Vaccines (1 of 2) 2022 Depression Screening 09/06/2024 COVID-19 Vaccine (1 - 2024-2 6 season) 2025 Influenza Vaccine (#1) 2025 RSV Immunization Adult Patie nts (1 - 1-dose 75+ series) 2047 HIB Vaccines Aged Out No longer eligi [...]
--- OUTSIDE RECORDS SUMMARY | 2025-07-27 14:47 | XMS_ITS | Encounter Summary ---
Author Organization [facility] Address [address] [place] [phone] Phone Care Team Providers Care Solar Energy Sales Specialist Name Role Phone Pcp, Unknown Primary Care Provider Unavailabl e Encounter Details Date Type Department Care Team (Latest Contact Info) Description 08/19/2017 Ancillary Orders [facility] [address] [place] [address] [place] [address] Petty Puga MD [address] [place] [phone] [email or web address] Palpitations; Dyspnea, unspecified type Social History Tobacco Use Types Packs/Day Years Used Date Smoking Tobacco: Never Assessed Comments Unknown Sex and Gender Information Value Date Recorded Sex Assigned at Not on file Legal Sex Female 9:14 AM EST Gender Identity Not on file Sexual Orientation Not on file documented as of this encounter Plan of Treatment Not on file documented as of this encounter Results * Holter Monitor 24 Hours (08/19/2017 9:26 AM EST) Anatomical Region Laterality Modality Heart Other Narrative 08/19/2017 1:06 PM EST 24-hour Holter monitor report Average heart rate 92 bpm Minimum heart rate 60 bpm Maximum heart rate 1 45 bpm in sinus rhythm Infrequent PVCs with total PVC burden of 2% No SVT, atrial flutter ablation or atrial flutter No VT or NSVT No pauses or heart block Normal 24-hour Holter monitor except for infrequent PVCs Petty Puga MD [facility] ORDERABLES Final Result documented in this encounter Visit Diagnoses Diagnosis Palpitations Dyspnea, unspecified type Palpitations Dyspnea, unspecified type documented in this encounter Care Teams Solar Energy Sales Specialist Relationship Specialty Start Date End Date Pcp, Unknown PCP - General 08/19/17 documented as of this encounter Additional Source Comments The information contained in this document represents components of the legal health record. It is not the complete legal health record.[facility]
--- OUTSIDE RECORDS SUMMARY | 2025-07-27 14:47 | XMS_ITS | Clinical Summary ---
Author Organization [facility] Address [address] [place] [id number] Phone Care Team Providers Care Guide Cruise Name Role Phone Pcp, Unknown Primary Care Provider Unavailabl e Social History Tobacco Use Types Packs/Day Years Used Date Smoking Tobacco: Never Assessed Comments Unknown Sex and Gender Information Value Date Recorded Sex Assigned at Not on file Legal Sex Female 9:14 AM EST Gender Identity Not on file Sexual Orientation Not on file Plan of Treatment Not on file Medical Devices Not on file Insurance [employer] [place] [id number] [employer] [place] [place] REPLACEMENT [facility] MED[employer] REPLACEMENT [place] [id number] Care Teams Guide Cruise Relationship Specialty Start Date End Date Pcp, Unknown PCP - General 08/19/17 Additional Source Comments The information contained in this document represents components of the legal health record. It is not the complete legal health record.[facility]
== END 2025-07-27 15:16 | disposition home or self-care (01) ==
LOC: HO.HWS 14:24
PROVIDERS: PCP Internal Medicine; Visit Provider Advanced Practice Midwife
DX: Z01.419 Encounter for gynecological examination (general) (routine) without abnormal findings (principal); Z12.39 Encounter for other screening for malignant neoplasm of breast; N95.1 Menopausal and female climacteric states
CPT/HCPCS: 99396; 99459

== ENCOUNTER → 2025-07-27 14:23 | Outpatient (BNVA) | payer OTHER, SELFPAY | PROVIDERS: PCP Internal Medicine; Visit Provider Advanced Practice Midwife | DX: Z01.419 Encounter for gynecological examination (general) (routine) without abnormal findings (principal); Z12.39 Encounter for other screening for malignant neoplasm of breast; N95.1 Menopausal and female climacteric states; Z98.51 Tubal ligation status; E66.3 Overweight; Z68.30 Body mass index [BMI] 30.0-30.9, adult; R23.2 Flushing | CPT/HCPCS: 99396 ==